=== PATIENT | male | born 1995 | race Caucasian/White ===

== ENCOUNTER 2022-06-25 08:46 | Outpatient (REF) | payer OTHER, SELFPAY ==
[2022-07-01 13:14] LABS: PTT (LAC) Screen 33 sec (<=40)
== END 2022-06-25 08:47 | disposition home or self-care (01) ==
LOC: HO.LAB 08:46
PROVIDERS: PCP Internal Medicine; Visit Provider Physician Assistant
DX: M35.9 Systemic involvement of connective tissue, unspecified (principal)
CPT/HCPCS: 36415; 85597; 85613; 85730

== ENCOUNTER 2023-09-23 10:46 | Outpatient (AMB) | payer OTHER, SELFPAY ==
[2023-09-23 10:50] VITALS: BP 118/70; PULSE 86; O2SAT 96
--- NOTE | 2023-09-23 10:50 | HO.NEPHOV ---
Vital Signs 09/23/23 10:50 Weight 194 lb BP 118/70 Blood Pressure Location Lt brachial Position Sitting Pulse 86 Pulse Source Pulse Oximeter Pulse Oximetry (%) 96 Oxygen Delivery Method Room Air Intake Visit Reasons: HTN-Continuing care from [facility]ANE/ LVM Packing And Final Assembly Supervisor Required: Yes Packing And Final Assembly Supervisor Name: riky [id number] Accompanied by: Mother Allergies No Known Allergies [No Known Allergies*] Allergy (Verified 09/23/23 10:53) HPI Comments Details: 28-year-old man with a history of meningioma status post surgery. He has had hypertension which has been well controlled. He was accompanied by his mother. Packing And Final Assembly Supervisor service was used. [facility] Social History (Updated 09/23/23 @ 10:53 by Brittney Mcnally) Patient Tobacco Use Status: Never used Tobacco Physical Exam Vital Signs: Last Vital Signs Pulse 86 09/23/23 10:50 BP 118/70 09/23/23 10:50 Pulse Ox 96 09/23/23 10:50 Oxygen Delivery Method Room Air 09/23/23 10:50 Const General: comfortable Nutritional Appearance: well nourished Orientation/consciousness: patient oriented x3 HEENT Head: No normal to inspection Mouth: moist mucous membranes Neck Neck: Yes supple and Yes no JVD Resp Auscultation: clear to auscultation bilaterally, no rales and rub present Cardio Jugular venous distension: no JVD Palpation: no palpable S3 and no palpable S4 Heart sounds: no rubs GI Palpation (GI): Soft to palpation and nontender Percussion: No Fluid wave present General: Yes no CVA tenderness Back/Spine/Pelvis Back: no CVA tenderness Skin General skin exam: no rashes or lesions noted Neuro General: patient oriented x3 Extrem General: Yes no pedal edema and No clubbing Results Reviewed Nephrology Results: Hgb 15.8 g/dL (14.0-18.0) 04/04/18 WBC 8.1 X10*3/uL (4.8-10.8) 04/04/18 Plt Count 184 X10*3/uL (160-400) 04/04/18 Sodium 139 MMOL/L (135-145) 04/04/18 Potassium 4.3 MMOL/L (3.3-5.1) 04/04/18 Chloride 105 MMOL/L (96-108) 10/29/18 BUN 16 MG/DL (9-16) 04/04/18 Creatinine 0.97 MG/DL (0.5-1.4) 04/04/18 Calcium 10.2 MG/DL (8.4-10.2) 04/04/18 Assessment & Plan Assessment & Plan (1) HTN (hypertension): Code(s): I10 - Essential (primary) hypertension Category: Medical Plan Middle-aged man well-controlled hypertension. Encouraged him to stay on low-sodium diet Continue with current dose of lisinopril. He will benefit from weight loss. We will continue to monitor renal panel along with urine protein creatinine ratio. All his questions were answered. No changes were made to the medications today. Orders: Orders Creatinine Urine Today I10 - Essential (primary) hypertension, N05.9 - Unspecified nephritic syndrome with unspecified morphologic changes UA and rflx microscopic Today I10 - Essential (primary) hypertension Basic Metabolic Panel Today I10 - Essential (primary) hypertension Total Protein Urine Random Today I10 - Essential (primary) hypertension
== END 2023-09-23 11:06 | disposition home or self-care (01) ==
PROVIDERS: PCP Internal Medicine; Visit Provider Internal Medicine Hypertension Specialist
DX: I10 Essential (primary) hypertension (principal)
CPT/HCPCS: 99214

== ENCOUNTER → 2023-09-23 10:46 | Outpatient (BNVA) | payer OTHER, SELFPAY | PROVIDERS: PCP Internal Medicine; Visit Provider Internal Medicine Hypertension Specialist | DX: I10 Essential (primary) hypertension (principal) | CPT/HCPCS: 99212 ==

== ENCOUNTER 2023-09-30 06:39 | Outpatient (REF) | payer OTHER, SELFPAY ==
[2023-09-30 08:43] LABS: Anion Gap 10 (12-20); Blood Urea Nitrogen 14 mg/dL (9-16); Calcium 9.9 mg/dL (8.4-10.2); Carbon Dioxide 28 mmol/L (22-29); Chloride 109 mmol/L (96-108); Estimated Glomerular Filt Rate > 60; Glucose Random 98 mg/dL (60-115); Sodium 143 mmol/L (135-145)
[2023-09-30 08:56] LABS: Appearance Urine Clear; Color Urine Yellow; Glucose Urine UA Negative (Negative); Leukocyte Esterase Urine Negative (Negative); Nitrite Urine Negative (Negative); PH 5.5 (5.0-9.0); Urine Blood Negative (Negative); Urine Ketones Negative (Negative); Urine Protein Negative (Neg-Trace)
[2023-09-30 09:28] LABS: Creatinine Urine 183.67 mg/dL; Total Protein Urine Random 14 mg/dL (<12)
== END 2023-09-30 06:40 | disposition home or self-care (01) ==
LOC: HO.LAB 06:39
PROVIDERS: PCP Internal Medicine; Visit Provider Internal Medicine Hypertension Specialist
DX: N05.9 Unspecified nephritic syndrome with unspecified morphologic changes (principal); I10 Essential (primary) hypertension
CPT/HCPCS: 36415; 80048; 81003; 82570; 84156

== ENCOUNTER 2023-11-16 11:04 | Emergency (ER) | payer OTHER, SELFPAY ==
--- NOTE | ~2023-11-16 | MR_ITS ---
EXAMINATION: MR BRAIN WITHOUT AND WITH CONTRAST MR ORBITS WITHOUT AND WITH CONTRAST CLINICAL INFORMATION: Left eye apraxia. Double vision. Blurry vision. COMPARISON: MR brain 04/01/2015. TECHNIQUE: Multiplanar MR imaging of the brain and orbits was performed without and with contrast. A total of 9 mL Gadavist was utilized for this examination. 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 There has been decompression of the right orbital apex. Postcontrast images however demonstrate tramtrack enhancement along both optic nerves at the orbital apices best visualized on axial image 9 of 18 series 13 consistent with residual meningioma. There is also persistent dural based thickening and enhancement along the anterior skull base within the olfactory grooves and the left lateral aspect the neville buck best visualized on coronal image 16 of 24 series 15. There is symmetric T2 signal hyperintensity visualized within both optic nerves most likely representing a manifestation of optic atrophy. There is a small nodular dural based component adjoining the supraclinoid segment of left internal carotid artery best visualized on axial image 10 of 18 series 13. No substantial intracranial mass effect. No midline shift or hydrocephalus. There is no acute territorial infarct. No pathological magnetic susceptibility artifact. There is loss of the normal vascular flow void within the superior sagittal sinus best visualized on axial image 17 of 24 series 12. 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 There has been decompression of the right orbital apex. 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 Residual tumor is also visualized along the anterior skull base within the olfactory grooves and the left lateral aspect of the neville buck. There is a small nodular dural based component involving the dorsum sella adjoins the supraclinoid segment of the left internal carotid artery. 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
--- NOTE | 2023-11-16 11:40 | ED_ITS ---
HPI - General Adult General Chief complaint: Eye Problems Stated complaint: swollen eye Time Seen by Provider: 11/16/23 13:58 Source: patient Mode of arrival: ambulatory Limitations: language barrier (Macedonian speaking only, plate conditioner used) History of Present Illness ED Provider: Dr. 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 Patient states that 1 week prior he was on vacation and swimming in pools and on the beach. He states that he began to develop blurred vision and double vision. The patient did see his integration software engineer at [facility] on Wednesday11/12/2023 and was diagnosed with dryness of both eyes. I did talk to the ophthalmology resident, Dr. Jude Haque and he was able to review the ophthalmology note by Dr. Dean Durant from 11/12/2023. From the note, the patient was noted to have light sensitivity, the left eye was red and injected and both eyes were dry bilaterally. Patient had some ptosis of his left eye with difficulty with abduction of his extraocular muscles which was felt to be chronic. The patient states that over the last 4 days his double vision has gotten worse, he now is unable to open his left eye. He also states his blurred vision is worse. The patient's saw his primary care doctor today and his doctor was concerned about recurrence of his meningioma therefore he was sent to the emergency department for evaluation. The patient denies headache, nausea, vomiting, fever, chills, numbness or weakness. Related Data Home Medications ?Medication ?Instructions ?Recorded ?Confirmed aluminum-mag hydroxide-simethicone ml PO 09/23/23 200 mg-200 mg-20 mg/5 mL oral susp (Rocío-Lanta) cholecalciferol (vitamin D3) 50 50 mcg PO DAILY 09/23/23 mcg (2,000 unit) tablet (Vitamin D3) cyanocobalamin (vitamin B-12) 500 500 mcg PO DAILY 09/23/23 mcg tablet famotidine 20 mg tablet 20 mg PO BID 09/23/23 fenofibrate 54 mg tablet 54 mg PO DAILY 09/23/23 hydroxyzine HCl 10 mg tablet 10 mg PO BID 09/23/23 lisinopril 5 mg tablet 5 mg PO DAILY 09/23/23 pantoprazole 40 mg tablet,delayed 40 mg PO DAILY 09/23/23 release simvastatin 80 mg tablet 80 mg PO DAILY 09/23/23 Allergies Allergy/AdvReac Type Severity Reaction Status Date / Time No Known Allergies Allergy Verified 11/16/23 11:42 [No Known Allergies*] [facility] Social History Social History (Updated 09/23/23 @ 10:53 by VALERIA Mota) Patient Tobacco Use Status: Never used Tobacco Advance Directives: No Advance Directives Information Provided: Yes Do you have a plan to hurt others: No Plan Physical Exam ED Vital Signs: Vital Signs - 24 hr 11/16/23 11:41 11/16/23 15:58 11/16/23 18:53 Temperature 97.5 F Pulse Rate 76 72 82 Respiratory Rate 16 16 14 Blood Pressure 130/67 143/83 H 140/87 H Pulse Oximetry 99 98 97 Oxygen Delivery Method Room Air Room Air Room Air BMI result Body Mass Index 32.3 Vital signs were normal Exam: General: Awake, alert in no distress Head: Normocephalic, atraumatic, patient has right sided scalp scar is consistent with his neurosurgical intervention for his meningioma in 2019 Eye exam: Patient's pupils were equal, round and reactive to light. Extraocular movement revealed that the left eye lags behind the right eye with left lateral movement however the patient does not see double, his extraocular movements are otherwise normal. Sclera and conjunctiva appear to be normal. The patient is able to tightly close his right eyelid and left eyelid but is not open his left upper or lower eyelids-she states this is new Neuro: Awake, alert, oriented, normal speech, moves all extremities symmetrically Psych: Pleasant, cooperative Course Course Course Narrative: This is a Rapid Medical Examination (RME) performed by Kyle Burr PA-C in triage. Full HPI, ROS, assessment and treatment plan per primary provider in the Main ED. 28-year-old Macedonian-speaking male here for eval of left eye closed shut x3 days. Admits this began as mild blurred vision to the left eye. He has been evaluated by an eye doctor in [place] who did not no concern for any pathologic process and advised him to use artificial tears for dry eye. Seen by his PCP today who advised he come to the ED to rule out neurologic defect. Well- appearing on exam. Right eye closed shut however and you will to lift the upper eyelid. EOMs intact without entrapment however there is pain to left eye with leftward movement. no facial droop. 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 Patient was on vacation and was swimming in pools and in the ocean. When he came back from vacation he had blurred vision, double vision. He was seen by his integration software engineer on 11/12/2023 who diagnosed him with injected/red left eye with dryness of his eyes and he was given drops. Patient's double vision, blurred vision and inability to open his left eye is gotten worse over the last 4 days. He also complained of dizziness but had no other symptoms. Vital signs were normal. Patient's left eye lags behind the right eye with left lateral vision but he does not have double vision. Patient was able to close both eyes tightly but has not only able to open his left upper lower lids which she states is new. Differential diagnosis: ?Includes but is not limited to optic nerve damage secondary to tumor (meningioma), muscle weakness, with swelling, infectious process, inflammatory process, cranial nerve palsy Following evaluation was ordered: MRI of the brain with and without contrast, MRI of the orbits with and without contrast, CBC, CMP, magnesium, PT/INR, lipase, CRP, ESR Course: 19:38 My interpretation patient's laboratory evaluation is as follows: WBC was normal 7100 with normal differential, H&H. PT/INR normal. Glucose elevated 130. ESR and CRP were normal. The patient did obtain his MRI and I did tell him that this is a nonemergent MRI and it could take up to 1-2 days for the radiologist to read this study. Patient was advised to follow-up with his PCP in 1-2 days to review of the MRI results to determine if there is recurrence of the meningioma. I did tell the patient that he should make a follow-up appointment with his integration software engineer at [facility] to be re-evaluated with 1 week since he now increased ptosis of the left eye compared to his baseline. Admission/Observation Consideration of admission/observation: Escalation of care including admission/observation considered Consult Healthcare Provider Management of the patient was discussed with: Web Services Developer ( Dr. Aristides Donahue at [facility] who was covering for the patient's integration software engineer) Lab Data MDM Lab Attestation statement: I reviewed the patient's lab results. 11/16/23 12:08 11/16/23 12:08 Labs: Lab Results 11/16/23 Range/Units 12:08 WBC 7.1 (4.8-10.8) X10*3/uL RBC 5.58 (4.60-5.80) X10*6/uL Hgb 16.8 (14.0-18.0) g/dl Hct 48.5 (42.0-52.0) % MCV 86.9 (80.0-98.0) fL MCH 30.1 (27.0-33.0) pg MCHC 34.6 (31.0-36.0) g/dl RDW 12.8 (11.0-16.0) % Plt Count 199 (160-400) X10*3/uL MPV 10.6 (9.4-12.4) fL Immature Gran % (Auto) 1.6 H (0.0-0.4) % Neut % (Auto) 62.1 (45-73) % Lymph % (Auto) 27.8 (20-40) % [place] % (Auto) 6.2 (2-11) % Eos % (Auto) 0.9 (0-4) % Baso % (Auto) 1.4 (0-2) % Lymph # (Auto) 2.0 (1.2-4.9) X10*3/uL [place] # (Auto) 0.4 (0.1-1.2) X10*3/uL Eos # (Auto) 0.1 (0.0-0.4) X10*3/uL Baso # (Auto) 0.1 (0.0-0.2) X10*3/uL Abs Immat Gran (auto) 0.11 H (0.00-0.03) X10*3/uL Absolute Neuts (auto) 4.4 (2.0-8.3) x10*3/uL Absolute Nucleated RBC 0.000 (0.0-0.012) X10*3/uL Nucleated RBC % (auto) 0.0 (0.0-0.2) /100WBC ESR 1 (0-15) MM/HR PT 11.3 (11.1-13.3) SEC INR 0.9 (0.9-1.1) Sodium 142 (135-145) mmol/L Potassium 4.2 (3.3-5.1) mmol/L Chloride 106 (96-108) mmol/L Carbon Dioxide 28 (22-29) mmol/L Anion Gap 12 (12-20) BUN 13 (9-16) mg/dL Creatinine 1.01 (0.5-1.4) mg/dL Estim Creat Clear Calc 111.1 Estimated GFR > 60 Random Glucose 130 H (60-115) mg/dL Calcium 10.2 (8.4-10.2) mg/dL Magnesium 2.1 (1.6-2.6) mg/dL Total Bilirubin 0.5 (0.0-1.0) mg/dL AST 25 (5-37) U/L ALT 50 H (0-40) U/L Alkaline Phosphatase 69 (39-117) U/L C-Reactive Protein < 0.10 (< or = 0.50) mg/dL Total Protein 7.6 (6.5-8.0) g/dL Albumin 4.7 (3.5-5.0) g/dL Lipase 34 (8-78) U/L Independent Historian Clinical information obtained from an independent historian. History obtained from or confirmed by: Spouse Chronic Conditions Patient?s care impacted by: Hypertension Discharge Plan Discharge Clinical Impression: Ptosis of eyelid, left, Diplopia Patient Disposition: Home, Self-Care Instructions: Diplopia (ED), Ptosis (ED) Additional Instructions: Your laboratory evaluation today included a CBC, CMP, magnesium, lipase, CRP and ESR. All of these tests were normal. We do not have the ability to obtain an emergency MRI in our department. You had a nonemergent MRI which was done here in the emergency department because there was an open spot available in our outpatient MRI facility. This MRI results could take up to 1-2 days to be interpreted by the radiologist. I want you to follow-up with your primary care doctor in 1-2 days to check this outpatient MRI result to determine if there is recurrence of your meningeal tumor causing your symptoms. You can also check the patient portal determine when the MRI result is available and this can help your doctor as well. After you see your primary care doctor, your doctor can decide what treatment you need but I recommend that you follow-up with your integration software engineer at [facility] in [place] within 1 week to be re-evaluated for your inability to open your eye. Follow-up with your doctor in 2 days. Please return to the emergency department if your symptoms get worse or if you develop any symptoms that are concerning to you. Prescriptions: No Action fenofibrate 54 mg tablet 54 mg PO DAILY simvastatin 80 mg tablet 80 mg PO DAILY pantoprazole 40 mg tablet,delayed release (DR/EC) 40 mg PO DAILY cyanocobalamin (vitamin B-12) 500 mcg tablet 500 mcg PO DAILY cholecalciferol (vitamin D3) [Vitamin D3] 50 mcg (2,000 unit) tablet 50 mcg PO DAILY hydroxyzine HCl 10 mg tablet 10 mg PO BID lisinopril 5 mg tablet 5 mg PO DAILY alum-mag hydroxide-simeth [Rocío-Lanta] 200-200-20 mg/5 mL suspension PO famotidine 20 mg tablet 20 mg PO BID Print Language: Macedonian
[2023-11-16 11:41] VITALS: BP 130/67; PULSE 76; RESP 16; TEMP 36.4; O2SAT 99; BMI 32.3
[2023-11-16 12:14] LABS: MANUAL DIFF FLAG NO
[2023-11-16 12:16] LABS: Basophils Absolute Auto 0.1 X10*3/uL (0.0-0.2); Basophils Percent Auto 1.4 % (0-2); Eosinophils Absolute Auto 0.1 X10*3/uL (0.0-0.4); Eosinophils Percent Auto 0.9 % (0-4); Hematocrit 48.5 % (42.0-52.0); Hemoglobin 16.8 g/dl (14.0-18.0); Imm Gran Abs Auto 0.11 X10*3/uL (0.00-0.03); Imm Gran Pct Auto 1.6 % (0.0-0.4); Lymphocytes Percent Auto 27.8 % (20-40); Mean Corpuscular HGB Conc 34.6 g/dl (31.0-36.0); Mean Corpuscular Hemoglobin 30.1 pg (27.0-33.0); Mean Corpuscular Volume 86.9 fL (80.0-98.0); Mean Platelet Volume 10.6 fL (9.4-12.4); Monocytes Absolute Auto 0.4 X10*3/uL (0.1-1.2); Monocytes Percent Auto 6.2 % (2-11); Neutrophils Absolute Auto 4.4 x10*3/uL (2.0-8.3); Neutrophils Percent Auto 62.1 % (45-73); Platelet Count 199 X10*3/uL (160-400); Red Blood Count 5.58 X10*6/uL (4.60-5.80); Red Cell Distribution Width 12.8 % (11.0-16.0); White Blood Count 7.1 X10*3/uL (4.8-10.8)
[2023-11-16 12:21] LABS: INTERNATIONAL NORM RATIO 0.9 (0.9-1.1); Prothrombin Time 11.3 SEC (11.1-13.3)
[2023-11-16 12:28] LABS: Lipase 34 U/L (8-78)
[2023-11-16 12:32] LABS: Alanine Aminotransferase 50 U/L (0-40); Albumin Level 4.7 g/dL (3.5-5.0); Alkaline Phosphatase 69 U/L (39-117); Anion Gap 12 (12-20); Aspartate Amino Transferase 25 U/L (5-37); Bilirubin Total 0.5 mg/dL (0.0-1.0); Blood Urea Nitrogen 13 mg/dL (9-16); Calcium 10.2 mg/dL (8.4-10.2); Carbon Dioxide 28 mmol/L (22-29); Chloride 106 mmol/L (96-108); Creatinine Clr Calc Pharmacy 111.1; Estimated Glomerular Filt Rate > 60; Glucose Random 130 mg/dL (60-115); Magnesium 2.1 mg/dL (1.6-2.6); Potassium 4.2 mmol/L (3.3-5.1); Sodium 142 mmol/L (135-145); Total Protein 7.6 g/dL (6.5-8.0)
--- OUTSIDE RECORDS SUMMARY | 2023-11-16 13:19 | XMS_ITS | Continuity of Care Document ---
Author Organization [facility] ter Address [address] [place] [id number]- Care Team Providers Care Door And Arrival Attendant Name Role Phone Zay TSANG, Rebecca Torres Primary Care Physician Encounter [facility] Date(s): 12/30/22 - 12/30/[address] [address]- Encounter Diagnosis Left-sided chest wall pain(Final) - 12/30/22 Palpitations(Final) - 12/30/22 Discharge Disposition: A-D/C Home Attending Physician: Xochitl Gary MD Admitting Physician: Xochitl Gary MD Referring Physician: Not on Staff, Referring MD Allergies, Adverse Reactions, Alerts No Known Allergies Medications amLODIPine 2.5 mg oral tablet 2.5 mg, 1, tablet, By Mouth, Daily, # 30 tablet, Refills 0, Maintenance, 04/27/18 14:29:21 EST Start Date: 04/27/18 Status: Ordered finasteride 5 mg oral tablet 1 tablet = 5 mg, By Mouth, Daily, # 30 tablet, 0 Refills, Maintenance, 04/27/18 14:29:28 EST, Tablet Start Date: 04/27/18 Status: Ordered lisinopril 5 mg oral tablet 5 mg, 1, tablet, By Mouth, Daily, # 30 tablet, Refills 0, Maintenance, 04/27/18 14:29:14 EST Start Date: 04/27/18 Status: Ordered simvastatin 80 mg oral tablet 1 tablet = 80 mg, By Mouth, Daily at bedtime, 0 Refills, Maintenance, 10/20/17 10:11:58 EDT Start Date: 10/20/17 Status: Ordered Problem List Condition Confirmation Course Effective Dates Status H ealth Status Informant Brachydactyly Confirmed Active Hypertension Confirmed Active 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 FINDINGS: LINES AND TUBES: None. LUNGS AND PLEURA: Clear lungs. Normal pulmonary vascularity. No pleural effusion. No pneumothorax. HEART, MEDIASTINUM AND NOHEMI: Heart is normal in size. Normal mediastinal and hilar contour. BONES AND SOFT TISSUES: No acute abnormality. IMPRESSION: No evidence of acute abnormality. WSN: [id number] Ordering Physician: Xochitl Gary Dictated By: Vahe Quinteros MD Dictated Date/Time: 12/30/22 11:58 a Reviewed By: Vahe Quinteros MD Signed By: Vahe Quinteros MD Signed Date/Time: 12/30/22 11:58 am Transcribed By: MARCOS Transcribed Date/Time: 12/30/22 11:58 am Vital Signs Most recent to oldest [Reference Range]: 1 2 3 Height 165 cm (12/30/22 3:25 PM) 165 cm (12/30/22 12:20 PM) 165 cm (12/30/22 11:05 AM) Oxygen Saturation [94-100 %] 100 % (12/30/22 3:25 PM) 97 % (12/30/22 11:05 AM) Pulse Rate [55-90 bpm] 58 bpm (12/30/22 3:25 PM) 80 bpm (12/30/22 11:05 AM) Blood Pressure [90-138/55-84 mm Hg] 119/76mm Hg (12/30/22 3:25 PM) 130/78mm Hg (12/30/22 11:05 AM) Respiratory Rate [16-30 br/min] 16 br/min (12/30/22 3:25 PM) 16 br/min (12/30/22 11:05 AM) Temperature [96.8-100.4 DegF] 98.5 DegF (12/30/22 11:05 AM) Mode of Delivery (Oxygen) Room air (12/30/22 3:25 PM) Room air (12/30/22 11:05 AM) Blood pressure sites Arm, left (12/30/22 3:25 PM) Arm, left (12/30/22 11:05 AM) Temperature Route Oral (12/30/22 11:05 AM) Dry Weight 86.5 kg (12/30/22 3:25 PM) 86.5 kg (12/30/22 12:20 PM) 86.5 kg (12/30/22 11:05 AM) Dry Weight Obtained Via Patient/family s tated (12/30/22 11:05 AM) Social History Social History Type Response Smoking Status Never smoker; Tobacc o user in household: No entered on: 10/24/15 Sex EKG study * Event Display: ECG 12-Lead Authored Date: Please click on pdf link to open report * Event Display: ECG 12-Lead Authored Date: Ventricular Rate: 74 BPM Atrial Rate: 74 BPM P-R Interval: 136 ms QRS Duration: 116 ms Q-T Interval: 380 ms QTC Calculation(Bazett): 421 ms P Berry: 48 degrees R Berry: -30 degrees T Berry: 18 degrees Normal sinus rhythm Left axis deviation Cannot rule out Anterior infarct , age undetermined Abnormal ECG No previous ECGs available Confirmed by SAMANTHA ALMEIDA MD ([id number]) on 12/30/2022 11:33:22 AM [place]: SAMANTHA ALMEIDA MD Note * Saranya Kilgore: PERFORM, SIGN, VERIFY Event Display: Patient Education Handout Authored Date: [id number] Patient Care team information Care Team Personnel Name: Gianna Simpson MD Position: [facility] Physician - Pediatrics Member Role: Lifetime Consulting Physician Address: Address: [address] [place] [address]- Name: Rosemarie Lucas Position: [facility] Onco RN Member Role: Primary Care Nurse Name: Hernan Lee MD Position: [facility] Physician -Physician Practices Member Role: Lifetime Consulting Physician Name: Zay TSANG, Rebecca Torres Position: [facility] Physician - Primary Care Member Role: PCP Address: Address: [address] [place] [address]- Name: Xochitl Gary MD Position: [facility] ED Medicine MD Member Role: Admitting Physician Address: Address: [address] [place] [address] Name: Genia Bennett Position: [facility] ED TA [facility] Name: Manjit Boone Position: [facility] ED TA [facility] Name: Tiffany Agudelo RN Position: [facility] ED RN W/OE and Tasks Member Role: Patient Care Provider Name: Saranya Kilgore Position: [facility] Associate Professional Member Role: ED Physician Insurance And Financial Services Agent Address: Address: [address] [place] [address] Care Team Related Persons Name: NADEEM JACKSON Address: home [address] [place] [address] Name: PETER JACKSON Address: home [address] [place] [address] Name: ANTWON SMITH Address: home [address] [place] [address]
--- OUTSIDE RECORDS SUMMARY | 2023-11-16 13:19 | XMS_ITS | Continuity of Care Document ---
Author Organization [facility] ter Address [address] [place] [id number]- Care Team Providers Care Block Breaker Name Role Phone Zay TSANG, Rebecca D Primary Care Physician Encounter [facility] Date(s): 07/25/21 - 07/25/[address] [address]- Discharge Disposition: A-D/C Home Attending Physician: Contreras Lacey MD Admitting Physician: Contreras Lacey MD Referring Physician: Not on Staff, Referring [...] 14:29:14 EST Start Date: 04/27/18 Status: Ordered predniSONE 20 mg oral tablet 3 tablet = 60 mg, By Mouth, Daily, for 7 days, # 21 tablet, 0 Refills, Acute 08/01/21 22:33:00 EST,07/25/21 22:33:00 EST, Tablet, Partial fill upon patient request if the prescription is for a schedule II opioid drug. Start Date: 07/25/21 Stop Date: 08/01/21 Status: Ordered simvastatin 80 mg oral tablet 1 tablet = 80 mg, By Mouth, Daily at bedtime, 0 Refills, Maintenance, 10/20/17 10:11:58 EDT Start Date: 10/20/17 Status: Ordered Problem List Condition Effective Dates Status Health Status Inform ant Brachydactyly(Confirmed) Active Hypertension(Confirmed) Active Polyarticular juvenile idiop athic arthritis(Confirmed) Active Mild intellectual disability(Confirmed) Active Vital Signs Most recent to oldest [Reference Range]: 1 2 3 Oxygen Saturation [94-100 %] 98 % (07/25/21 11:07 PM) 97 % (07/25/21 9:46 PM) 97 % (07/25/21 9:41 PM) Pulse Rate [55-90 bpm] 71 bpm (07/25/21 11:07 PM) 72 bpm (07/25/21 9:46 PM) 73 bpm (07/25/21 9:41 PM) Blood Pressure [90-138/55-84 mm Hg] 136/87mm Hg (07/25/21 11:07 PM) 132/74mm Hg (07/25/21 9:46 PM) 132/74mm Hg (07/25/21 9:41 PM) Respiratory Rate [16-30 br/min] 16 br/min (07/25/21 11:07 PM) 24 br/min (07/25/21 9:46 PM) 20 br/min (07/25/21 9:41 PM) Temperature [96.8-100.4 DegF] 98.0 DegF (07/25/21 9:46 PM) 98.1 DegF (07/25/21 9:41 PM) 98.3 DegF (07/25/21 6:05 PM) Mode of Delivery (Oxygen) Room air (07/25/21 11:07 PM) Room air (07/25/21 9:46 PM) Room air (07/25/21 9:41 PM) Blood pressure sites Arm, left (07/25/21 11:07 PM) Arm, left (07/25/21 9:46 PM) Arm, left (07/25/21 9:41 PM) Temperature Route Oral (07/25/21 9:46 PM) Oral (07/25/21 9:41 PM) Oral (2/18/22 6:05 PM) Social History Social History Type Response Smoking Status Never smoker; Tobacc o user in household: No entered on: 10/24/15 Sex
--- OUTSIDE RECORDS SUMMARY | 2023-11-16 13:19 | XMS_ITS | Continuity of Care Document ---
Author Organization [facility] ter Address [address] [place] [id number]- Care Team Providers Care Top Lift Cutter Name Role Phone Zay TSANG, Rebecca D Primary Care Physician [phone] [id number] Date(s): 07/14/19 - 07/15/[address] [address]- [facility] Discharge Disposition: A-D/C Home Attending Physician: Contreras Lacey MD Admitting Physician: Contreras Lacey MD Referring Physician: Not on Staff, Referring MD Allergies, Adverse Reactions, Alerts Substance Reaction Severity Status NKA Active Medications amLODIPine 2.5 mg oral tablet 2.5 [...] athic arthritis(Confirmed) Active Mild intellectual disability(Confirmed) Active Results Radiology Reports * Exam Date Time Procedure Performing Provider Status 07/15/19 12:47 AM Chest 2 Views Frontal and Lat Halina shanique LillianAlessandra Boss (Verified) Notes: (Chest 2 Views Frontal and Lat) Reason For Exam: Chest Pain;Other: RESULT: Chest 2 Views Frontal and Lat Chest 2 Views Frontal and Lat Reason: Other:; Chest Pain; Clinical Question(s): CHF; Hx of Present Illness: pt complains of sob and chest pain for 30 min ago; Other Objective Findings: alert, color good, midsternal chest pain radto left side, increases with inspiraton , no cough, no n v d, no cough COMPARISON: 01/13/2019 FINDINGS: LINES AND TUBES: None. LUNGS AND PLEURA: Clear lungs. Normal pulmonary vascularity. Stable bilateral smooth pleural thickening. No pleural effusion. No pneumothorax. HEART, MEDIASTINUM AND NOHEMI: Heart is normal in size. Normal mediastinal and hilar contour. BONES AND SOFT TISSUES: No acute abnormality. IMPRESSION: No acute abnormality. WSN: [id number] Dictated By: Hiral James MD Dictated Date/Time: 07/15/19 7:22 am Reviewed By: Hiral James MD Signed By: Hiral James MD Signed Date/Time: 07/15/19 7:22 am Transcribed By: MARCOS Transcribed Date/Time: 07/15/19 7:21 am Vital Signs Most recent to oldest [Reference Range]: 1 2 3 Weight 89.6 kg (07/15/19 3:38 AM) 89.6 kg (07/14/19 8:45 PM) Oxygen Saturation [94-100 %] 100 % (07/15/19 3:38 AM) 100 % (07/14/19 10:21 PM) 100 % (07/14/19 8:45 PM) Pulse Rate [55-90 bpm] 72 bpm (07/15/19 3:38 AM) 75 bpm (07/14/19 10:21 PM) 84 bpm (07/14/19 8:45 PM) Blood Pressure [90-138/55-84 mm Hg] 158/80mm Hg *H* (07/15/19 3:38 AM) 163/94mm Hg *H* (07/14/19 10:21 PM) 168/98mm Hg *H* (07/14/19 8:45 PM) Respiratory Rate [16-30 br/min] 18 br/min (07/15/19 3:38 AM) 20 br/min (07/14/19 10:21 PM) 18 br/min (07/14/19 8:45 PM) Temperature [96.8-100.4 DegF] 98.8 DegF (07/14/19 10:21 PM) 98.4 DegF (07/14/19 8:45 PM) Mode of Delivery (Oxygen) Room air (07/15/19 3:38 AM) Room air (07/14/19 10:21 PM) Room air (07/14/19 8:45 PM) Blood pressure sites Arm, right (07/14/19 10:21 PM) Arm, right (07/14/19 8:45 PM) Temperature Route Oral (07/14/19 10:21 PM) Oral (07/14/19 8:45 PM) Dry Weight 89.6 kg (07/15/19 3:38 AM) 89.6 kg (07/14/19 8:45 PM) Weight Obtained Via Standing scale (07/14/19 8:45 PM) Dry Weight Obtained Via Standing scale (07/14/19 8:45 PM) Social History Social History Type Response Smoking Status Never smoker; Tobacc o user in household: No entered on: 10/24/15 Sex
[2023-11-16 15:58] VITALS: BP 143/83; PULSE 72; RESP 16; O2SAT 98
[2023-11-16 16:02] LABS: C Reactive Protein < 0.10 mg/dL (< or = 0.50)
[2023-11-16 16:36] LABS: Erythrocyte Sedimentation Rate 1 MM/HR (0-15)
[2023-11-16] MEDS: gadobutroL 10 ML VIAL IVPUSH (18:02)
[2023-11-16 18:53] VITALS: BP 140/87; PULSE 82; RESP 14; O2SAT 97
--- NOTE | 2023-11-16 19:33 | PC.NURSE ---
Assumed care of pt. With data modeling specialist, pt aware of plan for discharge, MD at bedside confirming plan with pt. No acute distress noted at this time.
[2023-11-16 20:18] VITALS: BP 136/86; PULSE 78; RESP 16; TEMP 36.8; O2SAT 98
== END 2023-11-16 20:19 | disposition home or self-care (01) ==
PROVIDERS: Physician Assistant Medical; Emergency Provider Emergency Medicine Emergency Medical Services; PCP Internal Medicine
DX: H02.402 Unspecified ptosis of left eyelid (principal); H01.8 Other specified inflammations of eyelid; H53.2 Diplopia; R51.9 Headache, unspecified; R06.02 Shortness of breath; Z79.899 Other long term (current) drug therapy
CPT/HCPCS: 36415; 70543; 70553; 80053; 83690; 83735; 85025; 85610; 85652; 86140; 96374; 99284; 99285; A9585

== ENCOUNTER 2024-11-02 16:02 | Outpatient (AMB) | payer OTHER, SELFPAY ==
--- OUTSIDE RECORDS SUMMARY | 2024-11-02 16:04 | XMS_ITS | Clinical Summary ---
Author Organization [facility] Address [address] [facility] [address] [place] [address] Phone Care Team Providers Care Aerospace Engineer Name Role Phone Rebecca Collazo MD Primary Care Provider [phone] Allergies Active Allergy Reactions Criticality Noted Date Comments Pollen Extract 01/19/2022 Medications simvastatin (ZOCOR) 80 MG tablet Take 1 tablet by mouth 1 (one) time each day Active cyanocobalamin (VITAMIN B-12) 1000 MCG tablet Take 1,000 mcg by mouth 1 (one) time each day 11/18/2020 Active pantoprazole (PROTONIX) 40 MG EC tablet Take 40 mg by mouth 1 (one) time each day 12/07/2020 Active fenofibrate (TRICOR) 54 MG tablet Take 54 mg by mouth 1 (one) time each day Active lisinopril 5 MG tablet TAKE 1 TABLET BY MOUTH EVERY EVENING 90 tablet 5 04/20/2021 Active hydrOXYzine (ATARAX) 10 MG tablet Take 10 mg by mouth 1 (one) time each day 05/05/2021 Active diclofenac (VOLTAREN) 75 MG EC tablet Take 1 mg by mouth 1 (one) time each day 02/04/2022 Active Active Problems Problem Noted Date Diagnosed Date Hypertensive disorder 12/12/2020 Resolved Problems Problem Noted Date Diagnosed Date Resolved Date Visual disturbance 06/16/2021 2 Chronic low back pain 10/08/20202021 Mass of scalp 04/16/2020 06/16/2021 Cough 07/20/2019 06/16/2021 Meningioma 03/07/2019 06/16/2021 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 He is currently on simvastatin 80 mg orally daily. He denies any myalgias. Last lipid panel done in April 2020 showed an LDL of 68. This time, would recommend to continue his current statin therapy. 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 Previously elevated LFT's. 04/25- no clear synovitis, monitoring. 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 06/16/2021 Gastroesophageal reflux disease 02/07/2016 06/16/2021 Immunizations Immunization Administration Dates Next Due Influenza, MDCK, PF, Quadrivalent 03/08/2020,10/2018 Moderna SARS-COV-2 10/30/2020,09/28/2020 Family History Relation Status Comments Father Unknown Mother Unknown Social History Tobacco Use Types Packs/Day Years Used Date Smoking Tobacco: Never Smokeless Tobacco: Never Tobacco Cessation:Counseling Given: Not Answered Alcohol Use Standard Drinks/Week Comments No 0 (1 standard drink = 0.6 oz pur e alcohol) Sex and Gender Information Value Date Recorded Sex Assigned at Not on file Legal Sex Male 4:50 PM EST Gender Identity Not on file Sexual Orientation Not on file Last Filed Vital Signs Vital Sign Reading Time Taken Comments Blood Pressure 100/72 02/22/2023 1:06 PM EDT Pulse 85 02/22/2023 1:06 PM EDT Temperature - - Respiratory Rate - - Oxygen Saturation 99% 02/22/2023 1:06 PM EDT Inhaled Oxygen Concentration - - Weight 75.8 kg (167 lb 3.2 oz) 02/22/2023 1:06 P M EDT Height 165.1 cm (5' 5 ) 02/22/2023 1:06 PM EDT Body Mass Index 27.82 02/22/2023 1:06 PM EDT Plan of Treatment Health Maintenance Due Date Last Done Comments Hepatitis B Vaccine (1 of 3 - 19+ 3-dose series) 2014 Pneumococcal Vaccine: Peds ( 0 to 5 Years) and At-Risk Patients (6 to 49 Years) (1 of 2 - PCV) 2014 Influenza Vaccine (Season Ended) 2025 03/08/20, 04/11/2019 Insurance MCR ([id number]) DILMA BOSE [id number] [facility] MCR ([id number]) Care Teams Aerospace Engineer Relationship Specialty Start Date End Date Rebecca Collazo MD [address] [address] PCP - General 06/17/20
--- NOTE | 2024-11-02 16:16 | MHC.PC.OV ---
Vital Signs 11/02/24 16:21 Height 5 ft 5 in Weight 200 lb BMI 33.3 BP 132/86 Blood Pressure Location Lt brachial Position Sitting Intake Visit Reasons: DISPATCHER ELECTRIC POWER/Chronic conditions Import Customs Clearing Agent Required: No Accompanied by: Mother Allergies No Known Allergies [No Known Allergies*] Allergy (Verified 11/02/24 16:38) Medication List - Last Reconciled 11/02/24 by Stefani Pressley MD alum-mag hydroxide-simeth 200-200-20 mg/5 mL ([place]) mL PO cholecalciferol (vitamin D3) (Vitamin D3) 50 mcg PO DAILY cyanocobalamin (vitamin B-12) 500 mcg PO DAILY fenofibrate 54 mg PO DAILY hydroxyzine HCl 10 mg PO BID lisinopril 5 mg PO DAILY meclizine 25 mg PO TID PRN meloxicam 15 mg PO DAILY pantoprazole 40 mg PO DAILY simvastatin 40 mg PO BEDTIME Tobacco use date assessed: 11/02/24 Dental Screening Dental Screen Date: 11/02/24 Did you have a dental visit in the last 12 months?: Yes Did you have a dental problem in the last 6 months where you did not have access to dental care?: No Was dental information given to patient?: Patient has dentist HPI HPI Comments History of Present Illness Details The patient is a 29-year-old male presenting to community health care accompanied by mother and management of multiple chronic conditions. He is managing mixed hyperlipidemia with simvastatin and fenofibrate, and hypertension with lisinopril. He also has hypomelanosis, although specific details are not elaborated. There is a history of meningioma, with treatment involving three removals, but residuals persist, requiring ongoing oncology intervention. Anxiety and mild depression are noted, with no current mental health treatment sought. The patient's family history includes maternal depression and hyperthyroidism and paternal depression and hypercholesterolemia. He has elevated TSH, suggesting hypothyroidism, and experiences occasional fatigue, potentially due to ongoing treatments. He has regular nephrology and gastroenterology follow-ups and is under specialized care for his complex health concerns. [facility] Surgical History History of meningioma History of hernia surgery History of appendectomy Family History Mother Hyperthyroidism Depression Mental health disorder Father Hypercholesterolemia Depression Mental health disorder Social History Housing: House Alcohol intake: never Patient Tobacco Use Status: Never used Tobacco e-Cigarette/Vaping Use: Never Used Second Hand Smoke Exposure: No service: No Current occupational status: disabled Cognitive needs: No Hearing needs: No Vision needs: Yes Questionnaire PHQ-9 Over the last 2 weeks, how often have you been bothered by any of the following problems? 1. Little interest or pleasure in doing things: several days 2. Feeling down, depressed, or hopeless: several days 3. Trouble falling or staying asleep, or sleeping too much: several days 4. Feeling tired or having little energy: several days 5. Poor appetite or overeating: not at all 6. Feeling bad about yourself - or that you are a failure or have let yourself or your family down: not at all 7. Trouble concentrating on things, such as reading the newspaper or watching television: several days 8. Moving or speaking so slowly that other people could have noticed. Or the opposite - being so fidgety or restless that you have been moving around a lot more than usual: several days 9. Thoughts that you would be better off or of hurting yourself in some way: not at all Total score: 6 Depression Screening Interpretation: Positive Depression Screening Follow-up: Existing condition and Follow-up Visit Requested Depression Screening Done: Yes 34161 - PHQ-9 Billing: Yes Source: Developed by Drs. Syd Gutierrez, Hailey Riley, True Morales and colleagues, with an educational keith from [employer]. Thrive Questionnaire Date Thrive assessed: 11/02/24 I am a: Patient What is your living situation today?: I have a steady place to live Within the past 12 months, did the food you bought not last and you didn't have the money to get more?: Never true Within the past 12 months, did you worry whether your food would run out before you got money to buy more?: Sometimes True Do you have trouble paying for medicines?: No Do you have trouble getting transportation to medical appointments?: No Do you have trouble paying your heating and electricity bill?: No Do you have trouble taking care of your child, family member or friend?: I choose not to answer this question Do you have trouble with day-to-day activities such as bathing, preparing meals, shopping, managing finances, etc.?: Yes Are you currently unemployed and looking for a job?: I choose not to answer this question Are you interested in more education?: I choose not to answer this question Please select the resources that you would like help with: None Currently or been in a relationship where the following occur: No concerns reported THRIVE Score: 1 AUDIT C Alcohol Use Questionnaire (AUDIT-C) 1. How often do you have a drink containing alcohol?: Never Total Score: 0 Score Reviewed/Action Taken: No GODFREY-7 AMB Questionnaire GODFREY-7 Date GODFREY - 7 assessed: 11/02/24 Feeling nervous, anxious, or on edge: 1 = Several days Not being able to stop or control worryin = Several days Worrying too much about different things: 1 = Several days Trouble relaxin = Several days Being so restless that it is hard to sit still: 1 = Several days Becoming easily annoyed or irritable: 1 = Several days Feeling afraid as if something awful might happen: 0 = Not at all Total GODFREY-7 score (0-4 normal; 5-9 mild; 10-14 moderate; 15-21 severe): 6 Source: Developed by Drs. Syd Gutierrez, Hailey Riley, True Morales and colleagues, with an educational keith from [employer]. GODFREY-7 Assessment Billing GODFREY-7 Assessment Tool: GODFREY-7 Assessment 34117 Review of Systems Const All systems reviewed & are unremarkable except as noted in HPI and below Card Denies chest pain at rest, Denies chest pain with activity, Denies edema, Denies irregular heart rhythm, Denies claudication, Denies dyspnea, Denies dyspnea on exertion, Denies orthopnea, Denies paroxysmal nocturnal dyspnea and Denies slow heart rate Resp Denies cough, Denies dyspnea and Denies dyspnea on exertion Musc Denies abnormal gait, Denies atrophy, Denies deformity and Denies limited range of motion Skin/Breast Denies bleeding lesions, Denies changing lesions and Denies rash Neuro Denies abnormal gait, Denies behavioral changes and Denies lack of coordination Psych Denies behavioral changes Physical exam (Primary Care) Vital Signs: Last Vital Signs BP 132/86 11/02/24 16:21 BMI result Body Mass Index 33.3 BMI Assessment/Plan discussion: High BMI High, discussed plan: lifestyle, weight reduction, dietary and physical activity Tobacco/Smoking Status: Tobacco use Status Tobacco use date assessed 11/02/24 11/02/24 16:34 Patient Tobacco Use Status Never used Tobacco 11/02/24 16:30 e-Cigarette/Vaping Use Never Used 11/02/24 16:34 PHQ-9: PHQ-9 Score PHQ-9: Total score 6 11/02/24 16:50 Depression Screening Interpretation: Positive Depression Screening Follow-up: Existing condition and Follow-up Visit Requested Thrive Assessment: Date of Thrive Assessment Date Thrive assessed 11/02/24 11/02/24 16:19 Currently or been in a relationship where the following occur: No concerns reported Resp Effort & Inspection: normal respiratory effort Auscultation: clear to auscultation bilaterally Cardio Jugular venous distension: no JVD Rate: regular rate Rhythm: regular rhythm Heart sounds: S1 normal heart sound present and S2 normal heart sound present Extrem General: Yes full ROM Psych Appearance: grossly normal Coding Level of Care Code New Pt Level 4 (68962) Complex EM visit Add On G2211 Diagnoses HTN (hypertension) I10 Mixed hyperlipidemia E78.2 Hypomelanosis L81.5 Vertigo R42 GODFREY (generalized anxiety disorder) F41.1 Rheumatoid arthritis M06.9 Meningioma D32.9 Chronic GERD K21.9 Hypovitaminosis D E55.9 B12 deficiency E53.8 Thyroid disease E07.9 Additional Codes GODFREY-7 Assessment Billing - GODFREY-7 Assessment Tool: GODFREY-7 Assessment 64461 ([id number]) PHQ-9 - 51822 - PHQ-9 Billing: Yes ([id number]) Time Spent (min) 25 Assessment & Plan Assessment & Plan (1) HTN (hypertension): Code(s): I10 - Essential (primary) hypertension Category: Medical (2) Mixed hyperlipidemia: Code(s): E78.2 - Mixed hyperlipidemia Category: Medical (3) Hypomelanosis: Code(s): L81.5 - Leukoderma, not elsewhere classified Category: Medical (4) Vertigo: Code(s): R42 - Dizziness and giddiness Category: Medical (5) GODFREY (generalized anxiety disorder): Code(s): F41.1 - Generalized anxiety disorder Category: Medical (6) Rheumatoid arthritis: Code(s): M06.9 - Rheumatoid arthritis, unspecified Category: Medical (7) Meningioma: Code(s): D32.9 - Benign neoplasm of meninges, unspecified Category: Medical (8) Chronic GERD: Code(s): K21.9 - Gastro-esophageal reflux disease without esophagitis Category: Medical (9) Hypovitaminosis D: Code(s): E55.9 - Vitamin D deficiency, unspecified Category: Medical (10) B12 deficiency: Code(s): E53.8 - Deficiency of other specified B group vitamins Category: Medical (11) Thyroid disease: Code(s): E07.9 - Disorder of thyroid, unspecified Category: Medical Plan The patient will continue with simvastatin and fenofibrate for mixed hyperlipidemia and lisinopril for hypertension, with regular monitoring of lipid levels and blood pressure. Hypomelanosis will be observed for any changes. Ongoing oncology follow-up is necessary for residual meningioma. The patient's mild depression will be monitored, acknowledging his choice to forego current mental health treatment. Further assessment of thyroid function is warranted due to elevated TSH levels, with adjustments as necessary. Regular nephrology and gastroenterology consultations will continue. Vaccination status should be confirmed with the primary care physician. Patient was informed and verbally consented to the use of an ambient scribe for clinic note documentation during this visit. Orders: Orders Vitamin D 25-OH Total 11/02/24 E55.9 - Vitamin D deficiency, unspecified Vitamin B12 and Folate 11/02/24 E53.8 - Deficiency of other specified B group vitamins Lipid Panel 11/02/24 E78.5 - Hyperlipidemia, unspecified Complete Blood Count Auto Diff 11/02/24 D64.9 - Anemia, unspecified Thyroid Stimulating Hormone 11/02/24 E07.9 - Disorder of thyroid, unspecified Thyroglobulin Antibodies 11/02/24 E07.9 - Disorder of thyroid, unspecified IRON PROFILE 11/02/24 D64.9 - Anemia, unspecified Comprehensive [place]. Panel Fast 11/02/24 K21.9 - Gastro-esophageal reflux disease without esophagitis Free T4 (Free Thyroxine) 11/02/24 E07.9 - Disorder of thyroid, unspecified Thyroid Peroxidase Antibodies 11/02/24 E07.9 - Disorder of thyroid, unspecified Intrinsic Factor Antibodies 11/02/24 E53.8 - Deficiency of other specified B group vitamins Parietal Cell Antibody 11/02/24 E53.8 - Deficiency of other specified B group vitamins Patient Instructions: - Continue taking prescribed medications: simvastatin, fenofibrate, and lisinopril. - Follow up with oncology as advised for meningioma treatment. - Monitor blood pressure and lipid levels regularly. - Schedule thyroid function tests to assess elevated TSH levels. - Confirm tetanus vaccination status with your primary care provider. - Maintain regular appointments with digital sales director and diathermy equipment repairer. - Seek medical attention if experiencing new or worsening symptoms.
[2024-11-02 16:21] VITALS: BP 132/86; BMI 33.3
== END 2024-11-02 16:56 | disposition home or self-care (01) ==
PROVIDERS: PCP Internal Medicine; Visit Provider Internal Medicine
DX: I10 Essential (primary) hypertension (principal); M06.9 Rheumatoid arthritis, unspecified; D32.9 Benign neoplasm of meninges, unspecified; E78.2 Mixed hyperlipidemia; L81.5 Leukoderma, not elsewhere classified; R42 Dizziness and giddiness; F41.1 Generalized anxiety disorder; K21.9 Gastro-esophageal reflux disease without esophagitis; E55.9 Vitamin D deficiency, unspecified; E53.8 Deficiency of other specified B group vitamins; E07.9 Disorder of thyroid, unspecified

== ENCOUNTER → 2024-11-02 16:02 | Outpatient (BNVA) | payer OTHER, SELFPAY | PROVIDERS: PCP Internal Medicine; Visit Provider Internal Medicine | DX: I10 Essential (primary) hypertension (principal); E78.2 Mixed hyperlipidemia; L81.5 Leukoderma, not elsewhere classified; R42 Dizziness and giddiness; F41.1 Generalized anxiety disorder; M06.9 Rheumatoid arthritis, unspecified; D32.9 Benign neoplasm of meninges, unspecified; K21.9 Gastro-esophageal reflux disease without esophagitis; E55.9 Vitamin D deficiency, unspecified; E53.8 Deficiency of other specified B group vitamins; E07.9 Disorder of thyroid, unspecified; Z79.899 Other long term (current) drug therapy | CPT/HCPCS: 96127; 99202 ==

== ENCOUNTER 2024-11-06 07:41 | Outpatient (REF) | payer OTHER, SELFPAY ==
--- OUTSIDE RECORDS SUMMARY | 2024-11-06 07:43 | XMS_ITS | Encounter Summary ---
Author Organization [employer] Address [address] [place] [address] Care Team Providers Care Burial Vault Maker Name Role Phone Rebecca Collazo MD Primary Care Provider [phone] Reason for Visit * Reason Onset Date Comments [place]: Medication 10/24/2024 Encounter Details Date Type Department Care Team ([facility] st Contact Info) Description 10/24/2024 Telephone Internal Medicine - [place] 175 [facility] [address] [place] [id number] Rebecca Collazo MD 175 [facility] [address] [place] [address] [place]: Medication Social History Tobacco Use Types Packs/Day Years Used Date Smoking Tobacco: Never Smokeless Tobacco: Never Alcohol Use Standard Drinks/Week Comments No 0 (1 standard drink = 0.6 oz pur e alcohol) Sex and Gender Information Value Date Recorded Sex Assigned at Not on file Legal Sex Male 10:26 AM EST Gender Identity Not on file Sexual Orientation Not on file documented as of this encounter Ordered Prescriptions Prescription Sig Dispense Quantity Refills Last Filled Start Date End Date simvastatin (ZOCOR) 40 mg tablet Take 1 tablet (40 mg total) by mouth at bedtime. 30 each 5 10/24/2024 documented in this encounter Progress Notes * Rebecca Collazo MD - 10/24/2024 3:03 PM EDT Sent 40 mg instead of 80 mg * Cristin Nettles MA - 10/24/2024 1:26 PM EDT Please advise * Tracy Gong - 10/24/2024 10:10 AM EDT Patients mother called and stated that the patient had a infusion yesterday and they did blood workand his enzymes were high and his simvastatin needs to be a lower dose because it is causing his enzymes to be elevated. Please advise Cb# [phone] (prefers cambodian speaking person) documented in this encounter Plan of Treatment Not on file documented as of this encounter Visit Diagnoses Not on filedocumented in this encounter Discontinued Medications Medication Sig Discontinue Reason Start Date End Da te simvastatin (ZOCOR) 80 mg tablet Take 1 Tablet by mouth daily. Dose adjustment 03/13/2024 10/24/2024 documented as of this encounter Care Teams Burial Vault Maker Relationship Specialty Start Date End Date Rebecca Collazo MD [address] [place] [address] [address] [place] [address] PCP - General Internal Medicine 02/24/22 documented as of this encounter
[2024-11-06 07:50] LABS: MANUAL DIFF FLAG NO
[2024-11-06 08:17] LABS: Basophils Absolute Auto 0.1 X10*3/uL (0.0-0.2); Basophils Percent Auto 1.3 % (0-2); Eosinophils Absolute Auto 0.2 X10*3/uL (0.0-0.4); Eosinophils Percent Auto 2.4 % (0-4); Hematocrit 51.1 % (42.0-52.0); Hemoglobin 17.3 g/dl (14.0-18.0); Imm Gran Abs Auto 0.08 X10*3/uL (0.00-0.03); Imm Gran Pct Auto 1.1 % (0.0-0.4); Lymphocytes Absolute Auto 2.5 X10*3/uL (1.2-4.9); Lymphocytes Percent Auto 33.6 % (20-40); Mean Corpuscular HGB Conc 33.9 g/dl (31.0-36.0); Mean Corpuscular Hemoglobin 29.4 pg (27.0-33.0); Mean Corpuscular Volume 86.8 fL (80.0-98.0); Mean Platelet Volume 10.5 fL (9.4-12.4); Monocytes Absolute Auto 0.6 X10*3/uL (0.1-1.2); Monocytes Percent Auto 7.7 % (2-11); Neutrophils Percent Auto 53.9 % (45-73); Platelet Count 211 X10*3/uL (160-400); Red Blood Count 5.89 X10*6/uL (4.60-5.80); Red Cell Distribution Width 13.5 % (11.0-16.0); White Blood Count 7.5 X10*3/uL (4.8-10.8)
[2024-11-06 08:56] LABS: Alanine Aminotransferase 83 U/L (0-40); Alkaline Phosphatase 78 U/L (39-117); Anion Gap 16 (12-20); Aspartate Amino Transferase 41 U/L (5-37); Bilirubin Total 0.5 mg/dL (0.0-1.0); Blood Urea Nitrogen 18 mg/dL (9-16); Calcium 10.2 mg/dL (8.4-10.2); Carbon Dioxide 26 mmol/L (22-29); Chloride 106 mmol/L (96-108); Cholesterol 220 mg/dL (<200); Estimated Glomerular Filt Rate 60; Glucose Fasting 92 mg/dL (60-99); HDL Cholesterol 48 mg/dL (>40); Iron 112 mcg/dL (45-160); LDL Cholesterol Calculated 117 mg/dL (<100); Percent Iron Saturation 34 % (15-50); Potassium 4.5 mmol/L (3.3-5.1); Sodium 143 mmol/L (135-145); Total Iron Binding Capacity 326 mcg/dL (228-428); Total Protein 7.5 g/dL (6.5-8.0); Triglycerides 276 mg/dL (<150); Unsaturated Iron Binding 214 ug/dL
[2024-11-06 08:57] LABS: Free T4 (Free Thyroxine) 0.96 ng/dL (0.71-1.85); Thyroid Stimulating Hormone 8.15 uIU/mL (0.32-4.0); Vitamin D 25-OH Total 47.7 ng/mL (>30)
[2024-11-06 09:11] LABS: Folate 10.3 ng/mL (> or = 4.0); Vitamin B12 654 pg/mL (200-900)
[2024-11-07 20:53] LABS: Thyroglobulin Antibodies <1 IU/mL (< or = 1); Thyroid Peroxidase Antibodies <1 IU/mL (<9)
[2024-11-09 14:19] LABS: Parietal Cell Antibody <=20.0 Unit (<=20.0)
[2024-11-09 20:43] LABS: Intrinsic Factor Antibodies Negative (Negative)
== END 2024-11-06 07:42 | disposition home or self-care (01) ==
LOC: HO.LAB 07:41
PROVIDERS: PCP Internal Medicine; Visit Provider Internal Medicine
DX: E55.9 Vitamin D deficiency, unspecified (principal); E07.9 Disorder of thyroid, unspecified; D64.9 Anemia, unspecified; E53.8 Deficiency of other specified B group vitamins; E78.5 Hyperlipidemia, unspecified; K21.9 Gastro-esophageal reflux disease without esophagitis
CPT/HCPCS: 36415; 80053; 80061; 82306; 82607; 82746; 83516; 83540; 84439; 84443; 85025; 86340; 86376; 86800

== ENCOUNTER 2024-11-30 09:33 | Outpatient (AMB) | payer OTHER, SELFPAY ==
[2024-11-30 09:40] VITALS: BP 120/92; PULSE 73; O2SAT 96; BMI 33.6
--- NOTE | 2024-11-30 09:40 | HO.NEPHOV_ITS ---
Vital Signs 11/30/24 09:40 Height 5 ft 5 in Weight 202 lb BMI 33.6 BP 120/92 H Blood Pressure Location Lt brachial Position Sitting Pulse 73 Pulse Source Pulse Oximeter Pulse Oximetry (%) 96 Oxygen Delivery Method Room Air Intake Visit Reasons: HTN/ 1 Year Fu/ Conf Network Desktop Support Specialist Required: Yes Network Desktop Support Specialist Name: merly Padilla Accompanied by: Mother Allergies No Known Allergies (No Known Allergies*) Allergy (Verified 11/30/24 09:43) Medication List - Last Reconciled 11/30/24 by Lance Schaefer MD alum-mag hydroxide-simeth 200-200-20 mg/5 mL ([place]) mL PO bevacizumab-awwb ([place]vas[place]) IV cholecalciferol (vitamin D3) (Vitamin D3) 50 mcg PO DAILY cyanocobalamin (vitamin B-12) 500 mcg PO DAILY fenofibrate 54 mg PO DAILY hydroxyzine HCl 10 mg PO BID levothyroxine 25 mcg PO DAILY 90 days lisinopril 5 mg PO DAILY meclizine 25 mg PO TID PRN meloxicam 15 mg PO DAILY pantoprazole 40 mg PO DAILY simvastatin 40 mg PO BEDTIME HPI Comments Details: 29-year-old man with a history of meningioma status post surgery. He has had hypertension which has been well controlled. He was accompanied by his mother. Network Desktop Support Specialist service was used. 11/30/24 The patient is a 29-year-old male presenting for follow-up for HTN and recently diagnosed with meningioma The patient has been diagnosed with a meningioma and is currently undergoing infusion therapy with bevacizumab . He has undergone surgeries on May 24 and February 16, 2024, for the removal of the meningioma. The patient reports stable condition with no recent changes in medication, and he is under the care of Dr. Smith and Dr. Redd in [place]. He was advised to avoid meloxicam due to potential kidney effects and to use Tylenol for pain management instead. [facility] Surgical History History of meningioma History of hernia surgery History of appendectomy Family History Mother Hyperthyroidism Depression Mental health disorder Father Hypercholesterolemia Depression Mental health disorder Social History (Reviewed 11/30/24 @ 09:43 by KETAN Mota Housing: House Alcohol intake: never Patient Tobacco Use Status: Never used Tobacco e-Cigarette/Vaping Use: Never Used Second Hand Smoke Exposure: No service: No Current occupational status: disabled Cognitive needs: No Hearing needs: No Vision needs: Yes Review of Systems Const Denies fever(s) and Denies weight loss Card Denies chest pain Resp Denies cough and Denies hemoptysis GI Denies abdominal pain, Denies diarrhea and Denies nausea Musc Denies back pain Neuro Denies focal weakness Physical Exam Vital Signs: Last Vital Signs Pulse 73 11/30/24 09:40 BP 120/92 H 11/30/24 09:40 Pulse Ox 96 11/30/24 09:40 Oxygen Delivery Method Room Air 11/30/24 09:40 BMI result Body Mass Index 33.6 Const General: comfortable Nutritional Appearance: well nourished Orientation/consciousness: patient oriented x3 HEENT Head: No normal to inspection Mouth: moist mucous membranes Neck Neck: Yes supple and Yes no JVD Resp Auscultation: clear to auscultation bilaterally, no rales and rub present Cardio Jugular venous distension: no JVD Palpation: no palpable S3 and no palpable S4 Heart sounds: no rubs GI Palpation (GI): Soft to palpation and nontender Percussion: No Fluid wave present General: Yes no CVA tenderness Back/Spine/Pelvis Back: no CVA tenderness Skin General skin exam: no rashes or lesions noted Neuro General: patient oriented x3 Extrem General: Yes no pedal edema and No clubbing Results Reviewed Nephrology Results: Hgb, (14.0-18.0) 17.3 g/dl 11/06/24 WBC, (4.8-10.8) 7.5 X10*3/uL 11/06/24 Plt Count, (160-400) 211 X10*3/uL 11/06/24 Sodium, (135-145) 143 mmol/L 11/06/24 Potassium, (3.3-5.1) 4.5 mmol/L 11/06/24 Chloride, (96-108) 106 mmol/L 11/06/24 Carbon Dioxide, (22-29) 26 mmol/L 11/06/24 BUN, (9-16) 18 mg/dL H 11/06/24 Creatinine, (0.5-1.4) 1.40 mg/dL 11/06/24 Calcium, (8.4-10.2) 10.2 mg/dL 11/06/24 Urine Protein, (Neg-Trace) Negative mg/dL 09/30/23 Urine Creatinine 183.67 mg/dL 09/30/23 Assessment & Plan Assessment & Plan (1) HTN (hypertension): Code(s): I10 - Essential (primary) hypertension Category: Medical Plan 29 yr old man well-controlled hypertension. Mild bump in Cr to 1.4 from 1.0 ? Hypoperfusion Increase PO fluid intake Encouraged him to stay on low-sodium diet REcheck labs in 6 weeks Continue with current dose of lisinopril. He will benefit from weight loss. We will continue to monitor renal panel along with urine protein creatinine ratio. All his questions were answered. No changes were made to the medications today. Orders: Orders Basic Metabolic Panel 6 Weeks I10 - Essential (primary) hypertension Coding Level of Care Code Est Pt Level 4 (38205) Diagnoses HTN (hypertension) I10
--- OUTSIDE RECORDS SUMMARY | 2024-11-30 10:38 | XMS_ITS | Data Portability ---
Author Organization [employer] [facility], [facility] Address [address] [place] [address] Care Team Providers Care Cattle Shipper Name Role Phone HIM CCA OTHER EUSEBIO BARON Primary Care Provider Assessment Encounter Date Assessment Date Assessment LastModified by Organization Details LastModified Time 07/21/2024 07/21/2024 I provided real -time medical direction via phone for this encounter, and was available for additional phone based assistance as needed. I have reviewed and agree with the Assessment and Plan as documented by the Pediatric Neuropsychologist. We discussed the diagnostic uncertainty of home visits and the risk associated with this. In this case the patient/mother/med ic and I felt this to be an acceptable and reasonable amount of risk given the benefit of avoiding an ED visit. The patient/mother given the opportunity to ask questions. Advised if develops CP/severe SOB/turning blue/uncontrolled n/v/d / AMS/ syncope/ hi fever unresponsive to APAP to call 911- they verbalized understanding of instruction [email or web address] Not available 07/21/2024 16:11:52 10/13/2024 10/13/2024 I provided real -time medical direction via phone for this encounter and was available for additional phone-based assistance as needed. I have reviewed and agree with the Assessment and Plan as documented by the Pediatric Neuropsychologist. Patient given the opportunity to ask questions. Our service contacted for an assessment of: diarrhea, nausea As per above, patient with recent injection of mvasi-bevcizumab and pembrolizumab that is not new and he takes every 21 days, calls this service for diarrhea with some nausea. Poor intake prior to today. Today eating and drinking. Denies abd pain, blood in stool, dark or tarry stools. Positive sick contacts with the family with same complaints. Everyone's symptoms are improving Per trains dispatcher supervisor on the scene, VSS, NAD, appears hydrated. Pain to palpation to left side of abd. Neg rebound per trains dispatcher supervisor . BMP was reviewed. Impression and plan: nausea and diarrhea. Differential diagnosis includes viral gastroenteritis given other family members are ill. Review of patient's and family members dietary history is less suggestive of food poisoning. Symptoms are are overall improving. Per trains dispatcher supervisor on the scene there is no concerning subjective or objective findings to warrant an emergent emergency room evaluation. Additionally the patient appears well hydrated to the trains dispatcher supervisor on the scene and is not orthostatic. The patient is able to eat and drink now and symptoms are mostly resolved. We discussed the importance of follow-up and symptom management. The patient will continue to observe symptoms and monitor himself. Also will continue to try to advance diet and will continue with oral hydration. Discussed having a low threshold to seek an emergency room visit for a CT scan abdomen as infectious etiology including diverticulitis remains on differential. Patient voiced understanding. Patient is agreement with the plan as described above. Allergies: Reviewed PCP f/u: We discussed the diagnostic uncertainty of home visits and the risk associated with this. In this case, the patient and I felt this to be an acceptable and reasonable amount of risk given the benefit of avoiding an ED visit. We discussed the need to seek care urgently/emergentl y in the setting of any new or worsening serious symptoms, particularly fever chills lightheadedness altered mental status [email or web address] Not available 10/13/2024 12:35:05 Plan of Treatment Reminders Order Date Submit Date Provider Last Modified By Organization Details Last Modified Time Details Appointments None recorded. Lab BMP, serum or plasma 2024 025 BRYAN [facility], [address] [place] [address], [id number] 5 12:36:52 rapid flu (A+B) 2024 025 [email or web address] 0 [facility], [address] [place] [address], [id number] 5 11:17:03 rapid SARS CoV 2 Ag, QL IA, respiratory specimen 2024 025 [email or web address] [address], [phone] 5 11:10:03 Referral None recorded. Procedures None recorded. Surgeries None recorded. Imaging None recorded. Medication Orders azithromyci n 250 mg tablet 2024 025 [email or web address] 0 [facility], [address] [place], [address], 5 11:09:26 benzonatate 100 mg capsule 2024 025 [email or web address] 0 Oleg [facility], [address] [place], [address], 5 11:09:26 azithromyci n 250 mg tablet 2024 025 [email or web address] 0 [facility], [address] [place], [address], 5 16:12:47 benzonatate 200 mg capsule 2024 025 [facility], [address] [place], [address], 5 11:19:20 Saline Nasal Mist 0.65 % spray aerosol 2024 025 [facility], [address] [place], [address], 5 11:19:20 Patient TargetsNo targets recorded. Patient InstructionsNo instructions recorded. Reason for Referral None Reported. Results Created Date Observation Date Name Description Value Unit Range Abnormal Flag Note LastModifiedBy Organization Detail LastModifiedTime 07/21/1907/21/2024 rapid SARS CoV 2 Ag, QL IA, respi rator y speci men rapid SARS CoV 2 Ag, QL IA, respiratory specimen negati ve Not Available [facility] - [facility] [address] [place] [address], [id number] 07/21/2024 11:09:43 07/21/19 25 07/21/2024 rapid flu (A+B) Flu negati ve Not Available Main - [facility] ed [address] [place] [address], [id number] 07/21/2024 11:09:38 Result Notes None recorded. Medical Equipment None Reported. Allergies No known drug allergies Medications Name Sig Start Date Stop Date Status Note LastModified by Organization Details LastModified Time cyclobenzapr ine 10 mg tablet active Not Available Not Available Not Available acetaminophe n 325 mg tablet active Not Available Not Available Not Available polyethylene glycol 3350 17 gram oral powder packet active Not Available Not Available Not Available azithromycin 250 mg tablet Take 1 tablet every day by oral route after meal(s) for 4 days. active Not Available Not Available No t Available IBU 800 mg tablet TAKE ONE TABLET EVERY 8 HOURS NEEDED FOR PAIN active Not Available Not Available No t Available tizanidine 4 mg tablet active Not Available Not Available No t Available benzonatate 200 mg capsule Take 1 capsule 3 times a day by oral route as needed, for cough. active Not Available Not Available No t Available levetiraceta m 500 mg tablet TAKE ONE TABLET TWICE DAILY FOR SIX DAYS active Not Available Not Available No t Available polyvinyl alcohol 1.4 % eye drops PLACE ONE DROP IN EACH EYE FIVE TIMES DAILY active Not Available Not Available No t Available vancomycin 5 gram intravenous solution active Not Available Not Available Not Available prochlorpera zine maleate 10 mg tablet active Not Available Not Available Not Available simvastatin 80 mg tablet TAKE ONE TABLET EVERY DAY active Not Available Not Available No t Available ciprofloxaci n 500 mg tablet active Not Available Not Available Not Available Deep Sea Nasal 0.65 % spray aerosol 2 puffs each nostril every 3-4 hours as needed for 10 days active Not Available Not Available No t Available famotidine 20 mg tablet TAKE ONE TABLET TWICE DAILY FOR SIX DAYS active Not Available Not Available No t Available cyanocobalam in (vit B-12) 500 mcg tablet TAKE ONE TABLET EVERY DAY active Not Available Not Available No t Available linezolid 600 mg tablet active Not Available Not Available Not Available OneTouch Ultra Test strips active Not Available Not Available Not Available dexamethason e 1 mg tablet TAKE DIRECTED ON attached sheet active Not Available Not Available No t Available pantoprazole 40 mg tablet,delay ed release TAKE ONE TABLET DAILY active Not Available Not Available No t Available lisinopril 5 mg tablet TAKE ONE TABLET EVERY DAY active Not Available Not Available No t Available vancomycin 10 gram intravenous solution active Not Available Not Available Not Available ibuprofen 600 mg tablet TAKE ONE TABLET EVERY 6 HOURS NEEDED FOR PAIN active Not Available Not Available No t Available methylpredni solone 4 mg tablets in a dose pack TAKE DIRECTED ON PACKAGE active Not Available Not Available No t Available ceftriaxone 10 gram solution for injection active Not Available Not Available No t Available hydroxyzine HCl 10 mg tablet TAKE ONE TABLET TWICE DAILY NEEDED FOR ITCHING active Not Available Not Available Not Available ceftriaxone 2 gram solution for injection active Not Available Not Available No t Available oxycodone 5 mg tablet TAKE ONE OR TWO TABLETS EVERY 4 HOURS NEEDED FOR PAIN active Not Available Not Available No t Available cholecalcife rol (vitamin D3) 50 mcg (2,000 unit) tablet TAKE ONE TABLET EVERY DAY active Not Available Not Available No t Available fenofibrate 54 mg tablet TAKE ONE TABLET EVERY DAY active Not Available Not Available No t Available Antacid-Anti gas 200 mg-200 mg-20 mg/5 mL oral suspension Take 30 mL by mouth 3 times daily as needed for heartburn and epigastric pain active Not Available Not Available No t Available Artificial Tears (jd036-izkfe hannah-glyceri n) 1 %-0.2 %-0.2 % eye drops PLACE ONE DROP IN EACH EYE FIVE TIMES DAILY active Not Available Not Available No t Available Eliquis 5 mg tablet active Not Available Not Available Not Available OneTouch Ultra2 Meter active Not Available Not Available Not Available OneTouch Delica Plus Lancet 33 gauge active Not Available Not Available Not Available Vitals Date Recorded Oxygen saturation Oxygen saturation in Arterial blood by Pulse oximetry Respiratory rate Body temperature Heart rate Systolic blood pressure Diastolic blood pressure Provider Name and Address Organization Details Last Updated DateTime 5 97 % 97 % 16 /min 98.4 [degF] 94 /min 136 mm[Hg] 88 mm[Hg] Not Available [facility] 5 11:06:38 Date Recorded Heart rate Respiratory rate Body temperature Oxygen saturation Oxygen saturation in Arterial blood by Pulse oximetry Systolic blood pressure Diastolic blood pressure Provider Name and Address Organization Details Last Updated DateTime 5 86 /min 18 /min 97.3 [degF] 96 % 96 % 142 mm[Hg] 95 mm[Hg] Not Available [facility] 5 09:43:39 Social History None recorded. Functional Status None recorded. Mental Status None recorded. Family History Nothing Reported. Medical History No medical history recorded. Past Encounters Encounter ID Performer Location Encounter Start Date Encounter Closed Date Diagnosis/Indication Diagnosis SNOMED-CT Code Diagnosis ICD10 Code Diagnosis Note [id number] Kellie Lennon MD [facility] - [facility] [address] [place] [phone] 07/21/2024 11:06:36 07/22/2024 09:43:11 Upper respiratory infection 77638689 J06.9 possible sinusitis- where patient is immune compromise d on immunother apy infusions and had a fever of 102.9 earlier and rapid viral testing is negative I will cover with antibiotic s. They are requesting a cough suppressan t, aware benzonatat e is not covered.Al jeffreygimary and pharmacy reviewedSu ggested Tylenol 1 g every 8 hours if remains febrile, to stay well-hydra gualberto, warm compresses to sinuses-pa tient and mother verbalized understand ing to the medic [id number] Pat Hernandez MD Main - [facility] [address] [place] [phone] 10/13/2024 09:43:34 10/13/2024 19:23:30 Nausea and vomiting [id number] R11.2 Health Concerns Section Related Observation LastModified by Organization Detai ls LastModified Time None Recorded Concern Status LastModified by Organization Details LastModified Time None Recorded Advance Directives Directive None Recorded Payers Insurance Date Sequence Insurance Name Policy Number Policy Bell Covered Member ID Bell Member ID Guarantor Name 10/13/2024 1 [facility] - DOS ON OR AFTER 2022 - DUAL ELIGIBLE - SENIOR LIVING OPTIONS AND ONE CARE (MEDICARE REPLACEMENT/ADV ANTAGE - HMO) Koffi Lee ra [id number] Koffi De León Notes Date Note Type Note Provider Name and Address Organization Details Recorded Time 07/21/2024 text/html HPI: 08:12am MBR and EC1 request [facility] visit for URI symptoms. They decline ED as AAKASH is an infusion patient and they fear exposure to other illnesses. AAKASH is a 29 y/o male with a PMH of, but not limited to: mild intellectual disability, brachydactyly, HLD, HTN, dural venous sinus thrombosis, GERD, obesity, chronic pain, benign neoplasm of brain (meningioma), Barton s palsy, chromosomal abnormality, anxiety, and juvenile arthritis. EC1 reports that AAKASH has been feeling unwell since Wednesday and is experiencing a non-productive cough, green nasal discharge, headaches, and body aches. EC1 states that AAKASH had a temp of 102.9 last night, but at this time, temp is 98.8. BPs were also taken and are 156/75 and 165/89 respectively. AAKASH is eating, drinking, and voiding without issue. AAKASH denies CP, SOB, wheezing, or any other symptoms. AAKASH is congested-sounding to this typewriter assembler, but no stridor or wheezing could be appreciated. As an aside: AAKASH had brain surgery in 02/2011 and 12/2023 for meningiomas and he is currently receiving infusions of Mvasi-Bevacizumab and Pembrolizumab every 21 days. His last doses were on 07/10/24, his next doses are due 07/31/24. MBR and EC1 are assured that an [facility] referral will be placed on MBRs behalf. After confirming MBRs address and phone number on file, this CRU RN strongly recommends transport to ED via 911 for any new or worsening symptoms. Both MBR and caller understand and will do so if necessary. This call originated from [phone]. ...................... ...................... ...................... ...................... ...................... ...................... ......... [facility] Nurse Triage Notes (Socorro Cronin - RN): Chief Complaints: Common cold symptoms, Cough, Fatigue, Fever/chills, Headache, Weakness PMH: Anxiety Disorder, Chronic Pain, Gastroesophageal Reflux Disease (GERD), Hyperlipidemia, Hypertension, Obesity PMH Reviewed at 07/21/2024 - :08 Allergies Reviewed at 07/21/2024 - :08 Comments: HPI reviewed- [place] Pediatric Neuropsychologist Organization Information for Kurt [employer] Legal Name: [employer] Address: [address] [place] [id number], Dog Bather: Joey Blackwell MD [facility] No.: [id number] Pediatric Neuropsychologist POC Test Results from [employer] - ALS Rapid COVID antigen (10:56:54) COVID: - Rapid influenza antigen (10:56:55) Flu: - ...................... ...................... ...................... ...................... ...................... ...................... ......... Pediatric Neuropsychologist Note From Kurt Oneal: Dispatched to the call address for the male with cold like symptoms. Pt states since Wednesday he has been feeling ill with dry cough, body aches, chills and nasal congestion. He has been able to maintain PO hydration. This morning around 0400 he had a fever and took Tylenol which had good effect. He denies chest pain, SoB/difficulty breathing, abd pain or n/v/d at this time. Pt was found sitting on living room couch, CAOx3, airway open and patent, breathing non labored, able to speak in full sentences, -JVD, -HEENT, skin PWD with good turgor, mucous membranes pink and moist, pupils PERRL, lungs CTA, abd soft non tender/distended, -edema/swelling, - facial/sinus tenderness, Afebrile, Rapid coivd/flu (-). [facility] consulted. Pt given 200mg Benzonatate and 500mg Azithromycin PO. Scripts called into preferred pharmacy. Red flags discussed. ALL times are approx. [facility] Lab Orders: rapid flu (A+B): Performed rapid SARS CoV 2 Ag, QL IA, respiratory specimen: Performed [facility] Medication Orders: azithromycin 250 mg tablet: Administered benzonatate 100 mg capsule: Administered ...................... ...................... ...................... ...................... ...................... ...................... ......... [facility] Consulted: Kellie Lennon ...................... ...................... ...................... ...................... ...................... ...................... ......... Disposition: Fulfilled Kellie Lennon MD [address] [place] [address],[address] [facility], [place], [address], [employer] 07/21/2024 16:13:27 10/13/2024 text/html [facility] Nurse Triage Notes (Liam Winter): Reason For Request: Pt's mother reporting constant diarrhea>not feeling well since this past Wednesday; 1 instance of vomiting>pt is receiving infusions every 21 days, trying to avoid ED Patient Reports: Sharp focal or diffuse abdominal pain ; Vague abdominal pain greater than 24 hours; Diarrhea no blood in stool; Nausea with or without vomiting; Inability to tolerate foods, fluids or daily medicationsDenies: Vomiting blood/coffee ground material Bloating, jaundice new onset with pain Nausea and vomiting greater than 2 hours with abdominal pain Tearing pain that radiates to back Food Impaction Constipation Chief Complaints: Diarrhea, Nausea / VomitingPMH: Anxiety Disorder, Chronic Pain, Gastroesophageal Reflux Disease (GERD), Hyperlipidemia, Hypertension, ObesityPMH Reviewed at 10/13/2024:43Allergies Reviewed at 10/13/2024:43Pain Assessment: Level null out of 10Comments: 29 y.o male complains of Diarrhea, Nausea / Vomiting CG reports the pt is feeling unwell with since Wednesday with diarrhea, nausea and /vomiting - Abdominal pain/lower back pain - 12/14 - Decreased PO intake. Reports taking Tylenol and Pepto-Bismol with no relief. CG reports the pt infusion every 21 days - mvasi-bevcizumab and pembrolizumab Denies fever Concerns expressed and the CG is trying to avoid the ER - Wellness check requested I provided information on the mobile health provider response time and advised the patient and/or caregiver to monitor reported signs and symptoms. I discussed the warning signs of when to seek emergency care. Pediatric Neuropsychologist Organization Information for Enrique Crow [employer] Legal Name: [facility] [employer] Address: [address] [place] [address], [place] [address], Dog Bather: Jhon Motley MD CLIA No.: [id number] Pediatric Neuropsychologist POC Test Results from [employer] [facility] (09:55:12) pH: 7.362 pH units pCO2: 50.2 mmHg pO2: 29.7 mmHg Na: 146 mmol/L K: 3.9 mmol/L iCa: 1.20 mmol/L Cl: 107 mmol/L TCO2: 27.8 mEq/L Hct: 46 % Hb: 15.6 g/dL Glu: 80 mg/dL Lac: 1.21 mmol/L Cr: 0.93 mg/dL BUN: 12.6 mg/dL A mmol/L HCO3: 28.5 mmol/L ...................... ...................... ...................... ...................... ...................... ...................... ......... Pediatric Neuropsychologist Note From Enrique Crow: Arrived to find patient ambulating in the residence. Patient aox4 GCS 15 skin pink warm and dry n patient has been endorsing vomiting abdominal pain and diarrhea since Wednesday. Patient a stated that he has been having diarrhea approximately 7 days. Patient able to tolerate PO intake. VS as noted. Afebrile. [facility] contacted and advised blood work. Patient blood work obtained as noted. Patient abdomen tender to left side. [facility] and provider advised if he has increased pain to go to hospital for evaluation for diverticulitis. Patient in agreement [facility] Lab Orders: BMP, serum or plasma: Performed ...................... ...................... ...................... ...................... ...................... ...................... ......... [facility] Consulted: Pat Hernandez ...................... ...................... ...................... ...................... ...................... ...................... ......... Disposition: Andrea Hernandez MD [address] [facility],[address], [place], [address], JONH NUNEZ 10/13/2024 12:35:13
== END 2024-11-30 10:02 | disposition home or self-care (01) ==
LOC: HO.HKA 09:34
PROVIDERS: PCP Internal Medicine; Visit Provider Internal Medicine Hypertension Specialist
DX: I10 Essential (primary) hypertension (principal)
CPT/HCPCS: 99214

== ENCOUNTER → 2024-11-30 09:33 | Outpatient (BNVA) | payer OTHER, SELFPAY | PROVIDERS: PCP Internal Medicine; Visit Provider Internal Medicine Hypertension Specialist | DX: I10 Essential (primary) hypertension (principal) | CPT/HCPCS: 99212 ==

== ENCOUNTER 2025-01-08 09:12 | Outpatient (REF) | payer OTHER, SELFPAY ==
--- OUTSIDE RECORDS SUMMARY | 2025-01-08 09:37 | XMS_ITS | Clinical Summary ---
Author Organization [facility] Address [address] [facility] [address] [place] [address] Phone Care Team Providers Care Hydraulic Jack Adjuster Name Role Phone Rebecca Collazo MD Primary Care Provider [phone] Allergies Active Allergy Reactions Criticality Noted Date [...] (06/16/2021): History of pauciarticular CAROLINE, DX in [place], Enbrel for 6 years,D/C'ed for development of [...] of 3 - 19+ 3-dose series) 2014 Influenza Vaccine (#1) 2025 , 04/11/2019 Pneumococcal Vaccine: Peds ( 0 to 5 Years) and At-Risk Patients (6 to 49 Years) Aged Out No longer eligi ble based on patient's age to complete this topic Insurance MCR ([id number]) DILMA BOSE [id number] MCR ([id number]) DILMA BOSE [id number] Care Teams Hydraulic Jack Adjuster Relationship Specialty Start Date End Date Rebecca Collazo MD [address] [address] PCP - General 06/17/20
--- OUTSIDE RECORDS SUMMARY | 2025-01-08 09:37 | XMS_ITS | Clinical Summary ---
Author Organization 175 [facility] Address [address] [place] [address] Phone Care Team Providers Care Clerk Specialist Name Role Phone Rebecca Collazo MD Primary Care Provider Allergies No known active allergies Medications blood-glucose meter kit 1 Each by Does not apply route daily. 03/13/20 24 Active ONETOUCH ULTRASOFT LANCETS [facility] Use daily to check blood sugars. 03/13/20 24 Active hydrOXYzine HCL (ATARAX) 10 mg tablet Take 1 Tablet by mouth every 6 hours as needed for Itching. 03/13/20 24 Active p.glycol algin/polysorb ates ([employer] TOP) 3 Packages by Does not apply route continuous. 03/13/20 24 Active lisinopriL (PRINIVIL,ZEST RIL) 5 mg tablet Take 1 Tablet by mouth daily. 03/13/20 24 Active cholecalcifero l (VITAMIN D-3) 50 mcg (2,000 unit) tablet Take 1 Tablet by mouth daily. 03/13/20 24 Active cyanocobalamin (VITAMIN B-12) 500 mcg tablet Take 1 Tablet by mouth daily for 360 days. 03/13/20 24 025 Active pantoprazole (PROTONIX) 40 mg EC tablet Take 1 Tablet by mouth daily. 03/13/20 24 Active Eliquis 5 mg tablet 04/25/20 24 Active tiZANidine (ZANAFLEX) 4 mg tablet Take 1 tablet (4 mg total) by mouth 1 (one) time each day if needed for muscle spasms. 30 tablet 1 05/05/20 24 Active pantoprazole (PROTONIX) 40 mg EC tablet Take 1 tablet (40 mg total) by mouth 2 (two) times a day. Take on empty stomach, wait 30 mins and then eat to activate the medication before breakfast and supper 60 each 11 08/29/19 25 026 Active OneTouch Ultra Test test strip USE TO TEST 1 TIME DAILY 100 strip 1 10/10/19 25 Active simvastatin (ZOCOR) 40 mg tablet Take 1 tablet (40 mg total) by mouth at bedtime. 30 each 5 10/25/19 25 Active aluminum-magne sium hydroxide-alma thicone (Antacid-Antig as) 200-200-20 mg/5 mL suspension Take 30 mL by mouth 4 (four) times a day (before meals and nightly). 3600 mL 1 12/06/19 25 Active fenofibrate (LOFIBRA) 54 mg tablet TAKE 1 TABLET BY MOUTH ONCE DAILY 30 tablet 12/16/19 25 Active fenofibrate (LOFIBRA) 54 mg tablet TAKE 1 TABLET BY MOUTH ONCE DAILY 30 tablet 11/16/19 25 025 Discontinued Active Problems Problem Noted Date Diagnosed Date Vision disturbance 04/27/2024 Chest pain 05/07/2023 Overview (04/27/2024): Last Assessment & Plan: The patient has been endorsing a few episodes of atypical chest discomfort. Given the description of his symptoms, it is unlikely that this is cardiac in nature, however given the patient's history of hypertension and hyperlipidemia, I recommended the patient complete an exercise stress test. The patient has had an echocardiogram in the past which showed normal LV function and no significant valvular disease. I will notify the patient of the results as soon as the become available. Chronic lumbar pain 10/08/2020 Mass of scalp 04/16/2020 Cough 07/20/2019 Essential hypertension 03/07/2019 Overview (04/27/2024): Last Assessment & Plan: Patient has a history of hypertension. His blood pressures have been well controlled at home. His blood pressure is acceptable today. At this point, he will continue his current antihypertensive medication regimen with lisinopril. He will notify me if his blood pressures remain consistently elevated at home. 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 He continues on simvastatin 80 mg orally daily and fenofibrate. He recently had a cholesterol levels drawn in December. His triglyceride levels were elevated. His cholesterol level and LDL cholesterol were well controlled. I have reviewed with the patient the importance of a heart healthy lifestyle which includes eating a low-fat low-salt diet, getting regular exercise, maintaining a healthy weight, not smoking, and following up with routine medical care. 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 Overview (04/27/2024): Hypermelanosis of [place] Alopecia 08/19/2016 GERD (gastroesophageal reflux disease) 6 Encounters Date Type Department Care Team Description 10/24/2024 Telephone Internal Medicine - [address] [place] [id number] Rebecca Collazo MD [place]: Medication from Last 3 Months Immunizations Name Administration Dates Next Due Influenza Quadravalent, MDCK , 0.5ml, preservative free (Flucelvax) 6mo and older 03/08/2020,04/11/2019 Moderna SARS-CoV-2 COVID-19, mRNA, LNP-S, preservative free 10/30/2020 Surgical History Surgery Date Site/Laterality Comments APPENDECTOMY PROCEDURE: IA APPENDECTOMY FOOT SURGERY PROCEDURE: IA UNLISTED PROCEDURE FOOT/TOES HERNIA REPAIR PROCEDURE: HISTORICAL HERNIA REPAIR/ING Medical History Medical History Date Comments 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 Hypermelanosis DX:Hypermelanosi s; COMMENT: hypermelanosis of [place] CAROLINE (juvenile idiopathic art hritis) ([facility] V24, [facility] V28) DX:CAROLINE (juvenile idiopathic arthritis) ([facility]) Vision disturbance DX:Vision dis turbance Alopecia DX:Alopecia Allergic rhinitis 09/06/2017 DX:Allergic rh initis Anxiety 05/03/2017 DX:Anxiety GERD (gastroesophageal reflu x disease) 02/07/2016 DX:GERD (gastroesophageal re flux disease) Hyperlipidemia 02/03/2018 DX:Hyperlipidemi a NSAID long-term use 06/14/2017 DX:NSAID francesca g-term use On etanercept therapy 06/14/2017 DX:On terrie ercept therapy Family History Medical History Relation Name Comments Arthritis Aunt Asthma Brother Coronary artery disease Father Diabetes Father Hypertension Father Lung cancer Maternal Grandmother Hyperthyroidism Other 1 Hyperlipidemia Other 2 Relation Name Status Comments Aunt Brother Alive Father Maternal Grandmother Mother Alive Other 1 Other 2 Social History Tobacco Use Types Packs/Day Years [...] on file Sexual Orientation Not on file Obstetrics History Last Filed Vital Signs Vital Sign Reading Time Taken Comments Blood Pressure 130/84 08/28/2024 11:23 AM EDT Pulse 78 08/28/2024 11:23 AM EDT Temperature 36.4 C (97.5 F) 08/04/2024 2:32 PM EST Respiratory Rate - - Oxygen Saturation 98% 08/04/2024 2:32 PM EST Inhaled Oxygen Concentration - - Weight 90.3 kg (199 lb) 08/28/2024 11:23 AM EDT Height 165.1 cm (5' 5 ) 08/28/2024 11:23 AM EDT Body Mass Index 33.12 08/28/2024 11:23 AM EDT Plan of Treatment Upcoming Encounters Date Type Department Care Team (Late st Contact Info) Description 02/02/2025 10:00 AM EDT Office Visit Gastroenterology - [place] 175 [facility] 175 [facility] [address] [place] [id number] Alyssia Dennis, FELICIA 175 [facility] [address] [place] [address] Health Maintenance Due Date Last Done Comments DTaP,Tdap,and Td Vaccines (1 - Tdap) 2014 Hepatitis B Vaccines (1 of 3 - 19+ 3-dose series) 2014 HIV Screening 05/16/2022 Medicare Annual Wellness Visit 05/16/2022 Social Influencers of Health Screening 05/16/2022 COVID-19 Vaccine ( - season) 2024 06/02/2021, 10/30/2020, 09/28/2020 Depression Screening 06/07/2024 Influenza Vaccine (#1) 2025 , 03/08/2020, 04/11/2019 Hypertension/CHF/CAD Annual BMP Blood Test 08/29/2025 08/29/2024, 08/09/2024, 03/23/2024, Additional history exists Cholesterol Screening (Lipid Panel) 08/09/2029 08/09/2024, 03/23/2024, 03/23/2024 Hepatitis C Screening Completed 03/23/2019 HIB Vaccines Aged Out No longer eligi ble based on patient's age to complete this topic HPV Vaccines Aged Out No longer eligi ble based on patient's age to complete this topic Hepatitis A Vaccines Aged Out No long er eligible based on patient's age to complete this topic IPV Vaccines Aged Out No longer eligi ble based on patient's age to complete this topic MMR Vaccines Aged Out No longer eligi ble based on patient's age to complete this topic Meningococcal ACWY Vaccine Aged Out N o longer eligible based on patient's age to complete this topic Meningococcal B Vaccine Aged Out No l onger eligible based on patient's age to complete this topic Pneumococcal Vaccine: Pediatrics (0 to 5 Years) and At-Risk Patients (6 to 49 Years) Aged Out No longer eligible based on patient's age to complete this topic RSV Immunization Patients Under 20 months Aged Out No longer eligible based on patient's age to complete this topic Varicella Vaccines Aged Out No longer eligible based on patient's age to complete this topic Procedures Procedure Name Priority Date/Time Associated Diagnosis Comments COMPREHENSIVE METABOLIC PANEL Routine 08/29/2024 7:48 AM EDT Epigastric pain Gastroesophageal reflux disease without esophagitis LIPID PANEL WITH REFLEX TO DIRECT LDL Routine 08/09/2024 7:56 AM EST Chronic bilateral low back pain without sciatica Brachydactyly type A2 Gastroesophageal reflux disease without esophagitis Meningioma ([facility] V24, [facility] V28) Mixed hyperlipidemia Essential hypertension Vitamin D deficiency Adult general medical examination HEPATITIS C SCREENING Routine 03/23/2019 from Last 3 Months or Most Recently Relevant to Health Maintenance Results * (ABNORMAL) Comprehensive metabolic panel (08/29/2024 7:48 AM EDT) Sodium 143 133 - 145 mmol/L LAB CHEMISTRY METHOD 08/29/2024 11:06 AM [facility] Potassium 4.1 3.5 - 5.5 mmol/L LAB CHEMISTRY METHOD 08/29/2024 11:06 AM [facility] Chloride 108 96 - 110 mmol/L LAB CHEMISTRY METHOD 08/29/2024 11:06 AM [facility] CO2 27 21 - 32 mmol/L LAB CHEMISTRY METHOD 08/29/2024 11:06 AM [facility] Anion Gap 8 3 - 11 LAB CHEMISTRY METHOD 08/29/2024 11:06 AM [facility] Glucose 87 70 - 100 mg/dL LAB CHEMISTRY METHOD 08/29/2024 11:06 AM [facility] BUN 14 5 - 25 mg/dL LAB CHEMISTRY METHOD 08/29/2024 11:06 AM [facility] Creatinine 1.16 0.70 - 1.30 mg/dL LAB CHEMISTRY METHOD 08/29/2024 11:06 AM [facility] eGFR 87 >=60 mL/min/1. 73m2 LAB CHEMISTRY METHOD 08/29/2024 11:06 AM [facility] Comment:Calculation based on the Chronic Kidney Disease Epidemiology Collaboration (CKD-EPI) equation refit without adjustment for race. BUN/Creatinine Ratio 12.1 LAB CHEMISTRY METHOD 08/29/2024 11:06 AM [facility] Calcium 9.6 8.5 - 10.5 mg/dL LAB CHEMISTRY METHOD 08/29/2024 11:06 AM [facility] AST (SGOT) 48(H) 10 - 42 unit/L LAB CHEMISTRY METHOD 08/29/2024 11:06 AM [facility] ALT (SGPT) 106(H) 10 - 60 unit/L LAB CHEMISTRY METHOD 08/29/2024 11:06 AM [facility] Alkaline Phosphatase 73 42 - 121 unit/L LAB CHEMISTRY METHOD 08/29/2024 11:06 AM [facility] Total Protein 6.9 6.0 - 8.0 g/dL LAB CHEMISTRY METHOD 08/29/2024 11:06 AM [facility] Albumin 4.3 3.2 - 5.0 g/dL LAB CHEMISTRY METHOD 08/29/2024 11:06 AM [facility] Total Bilirubin 0.4 0.0 - 1.4 mg/dL LAB CHEMISTRY METHOD 08/29/2024 11:06 AM [facility] Blood Venous blood specimen / Unknown Venipuncture / Unknown 08/29/2024 7:48 AM EDT 08/29/2024 10:16 AM EDT [place] LAB BLOOD ORDERABLES Final Resu lt [facility] [address] [place] [address], * (ABNORMAL) Lipid panel with reflex to direct LDL (08/09/2024 7:56 AM EST) Cholesterol 234(H) 0 - 200 mg/dL LAB CHEMISTRY METHOD 08/09/2024 9:07 AM EST [facility] Triglycerides 253(H) 0 - 150 mg/dL LAB CHEMISTRY METHOD 08/09/2024 9:07 AM EST [facility] HDL 52 >=40 mg/dL LAB CHEMISTRY METHOD 08/09/2024 9:07 AM [facility] LDL Calculated 131(H) 0 - 100 mg/dL LAB CHEMISTRY METHOD 08/09/2024 9:07 AM [facility] VLDL Cholesterol Robert 50.6 mg/dL LAB CHEMISTRY METHOD 08/09/2024 9:07 AM [facility] Non HDL Chol. (LDL+VLDL) 182(H) <145 mg/dL LAB CHEMISTRY METHOD 08/09/2024 9:07 AM [facility] Chol/HDL Ratio 4.5(H) 0.0 - 4.4 LAB CHEMISTRY METHOD 08/09/2024 9:07 AM [facility] Blood Venous blood specimen / Unknown Venipuncture / Unknown 08/09/2024 7:56 AM EST 08/09/2024 8:34 AM EST us Rebecca Collazo MD LAB BLOOD ORDERABLES Final Res ult [facility] [address] [place] [address], * Hepatitis C Screening (03/23/2019) Hepatitis C Screening Abstracted us Historical Provider HEALTH MAINTENANCE Final Result from Last 3 Months or Most Recently Relevant to Health Maintenance Insurance [employer] Member Subscriber Plan / Payer (Ef fective 2018-Present) Name:KOFFI HERNÁNDEZ Relation to Subscriber:Self Name:Koffi Paez Payer ID:[id number] Group ID:[id number] Type:Not on file Address: [address] [place] [phone] Care Teams Clerk Specialist Relationship Specialty Start Date End Date Rebecca Collazo MD [address] [phone] PCP - General Internal Medicine 02/24/22
[2025-01-08 10:57] LABS: Anion Gap 12 (12-20); Blood Urea Nitrogen 16 mg/dL (9-16); Calcium 9.6 mg/dL (8.4-10.2); Carbon Dioxide 22 mmol/L (22-29); Chloride 111 mmol/L (96-108); Estimated Glomerular Filt Rate > 60; Potassium 4.2 mmol/L (3.3-5.1); Sodium 141 mmol/L (135-145)
[2025-01-08 11:01] LABS: Thyroid Stimulating Hormone 7.88 uIU/mL (0.32-4.0)
== END 2025-01-08 09:13 | disposition home or self-care (01) ==
LOC: HO.LAB 09:12
PROVIDERS: Absent Provider Internal Medicine Hypertension Specialist; Visit Provider Internal Medicine
DX: I10 Essential (primary) hypertension (principal); E07.9 Disorder of thyroid, unspecified
CPT/HCPCS: 36415; 80048; 84443

== ENCOUNTER 2025-01-09 10:12 | Outpatient (AMB) | payer OTHER, SELFPAY ==
[2025-01-09 10:13] VITALS: BP 140/82; PULSE 69; O2SAT 98; BMI 33.8
--- NOTE | 2025-01-09 10:13 | HO.NEPHOV ---
Vital Signs 01/09/25 10:13 01/09/25 10:26 Height 5 ft 5 in Weight 203 lb BMI 33.8 BP 140/82 H 120/80 Blood Pressure Location Rt brachial Rt brachial Position Sitting Sitting Pulse 69 Pulse Source Pulse Oximeter Pulse Oximetry (%) 98 Oxygen Delivery Method Room Air Intake Visit Reasons: 6 weeks fu/ LVM [employer] Bookkeeper Required: Yes [employer] Bookkeeper Name: Ronda [id number] Accompanied by: Mother Allergies No Known Allergies (No Known Allergies*) Allergy (Verified 01/09/25 10:16) Medication List - Last Reconciled 01/09/25 by Lance Schaefer MD alum-mag hydroxide-simeth 200-200-20 mg/5 mL ([place]) mL PO bevacizumab-awwb (Mvasi) IV cholecalciferol (vitamin D3) (Vitamin D3) 50 mcg PO DAILY cyanocobalamin (vitamin B-12) 500 mcg PO DAILY fenofibrate 54 mg PO DAILY hydroxyzine HCl 10 mg PO BID levothyroxine (Levoxyl) 50 mcg PO DAILY 90 days levothyroxine 25 mcg PO DAILY lisinopril 5 mg PO DAILY meclizine 25 mg PO TID PRN meloxicam 15 mg PO DAILY pantoprazole 40 mg PO DAILY simvastatin 40 mg PO BEDTIME HPI Comments Details: 29-year-old man with a history of meningioma status post surgery. He has had hypertension which has been well controlled. He was accompanied by his mother. [employer] Bookkeeper service was used. 11/30/24 The patient is a 29-year-old male presenting for follow-up for HTN and recently diagnosed with meningioma The patient has been diagnosed with a meningioma and is currently undergoing infusion therapy with bevacizumab . He has undergone surgeries on May 24 and February 16, 2024, for the removal of the meningioma. The patient reports stable condition with no recent changes in medication, and he is under the care of Dr. Smith and Dr. Redd in [place]. He was advised to avoid meloxicam due to potential kidney effects and to use Tylenol for pain management instead. 01/09/25 Stopped Miloxicam [facility] Surgical History History of meningioma History of hernia surgery History of appendectomy Family History Mother Hyperthyroidism Depression Mental health disorder Father Hypercholesterolemia Depression Mental health disorder Social History Housing: House Alcohol intake: never Patient Tobacco Use Status: Never used Tobacco e-Cigarette/Vaping Use: Never Used Second Hand Smoke Exposure: No service: No Current occupational status: disabled Cognitive needs: No Hearing needs: No Vision needs: Yes Physical Exam Vital Signs: Last Vital Signs Pulse 69 01/09/25 10:13 BP 140/82 H 01/09/25 10:13 Pulse Ox 98 01/09/25 10:13 Oxygen Delivery Method Room Air 01/09/25 10:13 BMI result Body Mass Index 33.8 Const General: comfortable Nutritional Appearance: well nourished Orientation/consciousness: patient oriented x3 HEENT Head: No normal to inspection Mouth: moist mucous membranes Neck Neck: Yes supple and Yes no JVD Resp Auscultation: clear to auscultation bilaterally, no rales and rub present Cardio Jugular venous distension: no JVD Palpation: no palpable S3 and no palpable S4 Heart sounds: no rubs GI Palpation (GI): Soft to palpation and nontender Percussion: No Fluid wave present General: Yes no CVA tenderness Back/Spine/Pelvis Back: no CVA tenderness Skin General skin exam: no rashes or lesions noted Neuro General: patient oriented x3 Extrem General: Yes no pedal edema and No clubbing Results Reviewed Nephrology Results: Hgb, (14.0-18.0) 17.3 g/dl 11/06/24 WBC, (4.8-10.8) 7.5 X10*3/uL 11/06/24 Plt Count, (160-400) 211 X10*3/uL 11/06/24 Sodium, (135-145) 141 mmol/L 01/08/25 Potassium, (3.3-5.1) 4.2 mmol/L 01/08/25 Chloride, (96-108) 111 mmol/L H 01/08/25 Carbon Dioxide, (22-29) 22 mmol/L 01/08/25 BUN, (9-16) 16 mg/dL 01/08/25 Creatinine, (0.5-1.4) 1.20 mg/dL 01/08/25 Calcium, (8.4-10.2) 9.6 mg/dL 01/08/25 Urine Protein, (Neg-Trace) Negative mg/dL 09/30/23 Urine Creatinine 183.67 mg/dL 09/30/23 Assessment & Plan Assessment & Plan (1) HTN (hypertension): Code(s): I10 - Essential (primary) hypertension Category: Medical Plan 29 yr old man well-controlled hypertension. Mild bump in Cr to 1.4 from 1.0 ? Hypoperfusion Cr decreased to 1.2 after stopping Miloxicam and Increasing PO fluid intake Encouraged him to stay on low-sodium diet He will benefit from weight loss. We will continue to monitor renal panel along with urine protein creatinine ratio. All his questions were answered. No changes were made to the medications today. Orders: Orders Basic Metabolic Panel 1 Year I10 - Essential (primary) hypertension Creatinine Urine 1 Month I10 - Essential (primary) hypertension Total Protein Urine Random 1 Month I10 - Essential (primary) hypertension UA and rflx microscopic 1 Month I10 - Essential (primary) hypertension Coding Level of Care Code Est Pt Level 4 (85859) Diagnoses HTN (hypertension) I10
[2025-01-09 10:26] VITALS: BP 120/80
--- OUTSIDE RECORDS SUMMARY | 2025-01-09 10:47 | XMS_ITS | Clinical Summary ---
Author Organization [facility] Address [address] [facility] [address] [place] [address] Phone Care Team Providers Care Shredder Tender Name Role Phone Rebecca Collazo MD Primary Care Provider [phone] Allergies Active Allergy Reactions Criticality Noted Date [...] (06/16/2021): History of pauciarticular CAROLINE, DX in [place], Enbrel for 6 years,D/C'ed for development of [...] this topic Insurance MCR ([id number]) [place] [id number] MCR ([id number]) [place] [phone] Care Teams Shredder Tender Relationship Specialty Start Date End Date Rebecca Collazo MD [address] [phone] PCP - General 06/17/20
--- OUTSIDE RECORDS SUMMARY | 2025-01-09 10:47 | XMS_ITS | Clinical Summary ---
Author Organization 175 [facility] Address [address] [place] [address] Phone Care Team Providers Care Education Director Name Role Phone Rebecca Collazo MD Primary Care Provider [phone] Allergies No known active allergies Medications blood-glucose meter kit 1 Each by Does not apply route daily. 03/13/20 24 Active ONETOUCH ULTRASOFT LANCETS [facility] Use daily to check blood sugars. 03/13/20 [...] TABLET BY MOUTH ONCE DAILY 30 tablet 01/09/20 25 Active fenofibrate (LOFIBRA) 54 mg tablet TAKE 1 TABLET BY MOUTH ONCE DAILY 30 tablet 11/16/19 25 025 Discontinued fenofibrate (LOFIBRA) 54 mg tablet TAKE 1 TABLET BY MOUTH ONCE DAILY 30 tablet 12/16/19 25 025 Discontinued Active Problems Problem Noted [...] pressures remain consistently elevated at home. 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 Hyperlipidemia [...] Team Description 10/24/2024 Telephone Internal Medicine - [address] [place] [address] Rebecca Collazo MD [place]: Medication from Last 3 Months Immunizations Name Administration Dates Next Due Influenza Quadravalent, MDCK , 0.5ml, preservative free (Flucelvax) 6mo and older 03/08/2020,04/11/2019 Moderna SARS-CoV-2 COVID-19, mRNA, LNP-S, preservative free 10/30/2020 Surgical History Surgery Date Site/Laterality Comments APPENDECTOMY PROCEDURE: [place] APPENDECTOMY FOOT SURGERY PROCEDURE: [place] UNLISTED PROCEDURE FOOT/TOES HERNIA REPAIR PROCEDURE: HISTORICAL HERNIA REPAIR/ING Medical History Medical History Date Comments 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 Hypermelanosis DX:Hypermelanosi s; COMMENT: hypermelanosis of mitchel CAROLINE (juvenile idiopathic art hritis) (CMS/HCC V24, CMS/HCC V28) DX:CAROLINE (juvenile idiopathic arthritis) ([facility]) Vision disturbance DX:Vision dis turbance Alopecia DX:Alopecia [...] 10:00 AM EDT Office Visit Gastroenterology - [place] [address] [place] [address] Alyssia Dennis NP [address] [place] [address] Health Maintenance Due Date Last Done Comments DTaP,Tdap,and Td Vaccines (1 - Tdap) 2014 Hepatitis B Vaccines (1 of 3 - 19+ 3-dose series) 2014 HIV Screening 05/16/2022 Medicare Annual Wellness Visit 05/16/2022 Social Influencers of Health Screening 05/16/2022 COVID-19 Vaccine ( season) 2024 06/02/2021, 10/30/2020, 09/28/2020 Depression Screening [...] A2 Gastroesophageal reflux disease without esophagitis Meningioma (CMS/HCC V24, CMS/HCC V28) Mixed hyperlipidemia Essential hypertension Vitamin D deficiency Adult general medical examination HEPATITIS C SCREENING Routine 03/23/2019 from Last 3 Months or Most Recently Relevant to Health Maintenance Results * (ABNORMAL) Comprehensive metabolic panel (08/29/2024 7:48 AM EDT) Sodium 143 133 - 145 mmol/L LAB CHEMISTRY METHOD 08/29/2024 11:06 AM [facility] Potassium 4.1 3.5 - 5.5 mmol/L LAB CHEMISTRY METHOD 08/29/2024 11:06 AM [facility] Chloride 108 96 - 110 mmol/L LAB CHEMISTRY METHOD 08/29/2024 11:06 AM [facility] CO2 27 21 - 32 mmol/L LAB CHEMISTRY METHOD 08/29/2024 11:06 AM [facility] Anion Gap 8 3 - 11 LAB CHEMISTRY METHOD 08/29/2024 11:06 AM [facility] Glucose 87 70 - 100 mg/dL LAB CHEMISTRY METHOD 08/29/2024 11:06 AM [facility] BUN 14 5 - 25 mg/dL LAB CHEMISTRY METHOD 08/29/2024 11:06 AM [facility] Creatinine 1.16 0.70 - 1.30 mg/dL LAB CHEMISTRY METHOD 08/29/2024 11:06 AM [facility] eGFR 87 >=60 mL/min/1. 73m2 LAB CHEMISTRY METHOD 08/29/2024 11:06 AM [facility] Comment:Calculation based on the Chronic Kidney Disease Epidemiology Collaboration (CKD-EPI) equation refit without adjustment for race. BUN/Creatinine Ratio 12.1 LAB CHEMISTRY METHOD 08/29/2024 11:06 AM [facility] Calcium 9.6 8.5 - 10.5 mg/dL LAB CHEMISTRY METHOD 08/29/2024 11:06 AM [facility] AST (SGOT) 48(H) 10 - 42 unit/L LAB CHEMISTRY METHOD 08/29/2024 11:06 AM [facility] ALT (SGPT) 106(H) 10 - 60 unit/L LAB CHEMISTRY METHOD 08/29/2024 11:06 AM [facility] Alkaline Phosphatase 73 42 - 121 unit/L LAB CHEMISTRY METHOD 08/29/2024 11:06 AM [facility] Total Protein 6.9 6.0 - 8.0 g/dL LAB CHEMISTRY METHOD 08/29/2024 11:06 AM [facility] Albumin 4.3 3.2 - 5.0 g/dL LAB CHEMISTRY METHOD 08/29/2024 11:06 AM [facility] Total Bilirubin 0.4 0.0 - 1.4 mg/dL LAB CHEMISTRY METHOD 08/29/2024 11:06 AM [facility] Blood Venous blood specimen / Unknown Venipuncture / Unknown 08/29/2024 7:48 AM EDT 08/29/2024 10:16 AM EDT [place] LAB BLOOD ORDERABLES Final Resu lt [facility] [address] [place] [address], * (ABNORMAL) Lipid panel with reflex to direct LDL (08/09/2024 7:56 AM EST) Cholesterol 234(H) 0 - 200 mg/dL LAB CHEMISTRY METHOD 08/09/2024 9:07 AM [facility] Triglycerides 253(H) 0 - 150 mg/dL LAB CHEMISTRY METHOD 08/09/2024 9:07 AM [facility] HDL 52 >=40 mg/dL LAB CHEMISTRY METHOD 08/09/2024 9:07 AM [facility] LDL Calculated 131(H) 0 - 100 mg/dL LAB CHEMISTRY METHOD 08/09/2024 9:07 AM [facility] VLDL Cholesterol Robert 50.6 mg/dL LAB CHEMISTRY METHOD 08/09/2024 9:07 AM [facility] Non HDL Chol. (LDL+VLDL) 182(H) <145 mg/dL LAB CHEMISTRY METHOD 08/09/2024 9:07 AM [facility] Chol/HDL Ratio 4.5(H) 0.0 - 4.4 LAB CHEMISTRY METHOD 08/09/2024 9:07 AM [facility] Blood Venous blood specimen / Unknown Venipuncture / Unknown 08/09/2024 7:56 AM EST 08/09/2024 8:34 AM EST Rebecca Collazo MD LAB BLOOD ORDERABLES Final Res ult [facility] [address] [place] [address], * Hepatitis C Screening (03/23/2019) Hepatitis C Screening Abstracted us Historical Provider HEALTH MAINTENANCE Final Result from Last 3 Months or Most Recently Relevant to Health Maintenance Insurance [facility] MEDICARE Member Subscriber Plan / Payer (Ef fective 2018-Present) Name:KOFFI HERNÁNDEZ Relation to Subscriber:Self Name:Koffi Paez Payer ID:[id number] Group ID:[id number] Type:Not on file Address: [address] [place] [id number] Care Teams Education Director Relationship Specialty Start Date End Date Rebecca Collazo MD [address] [address] PCP - General Internal Medicine 02/24/22
== END 2025-01-09 10:31 | disposition home or self-care (01) ==
LOC: HO.HKA 10:13
PROVIDERS: PCP Internal Medicine; Visit Provider Internal Medicine Hypertension Specialist
DX: I10 Essential (primary) hypertension (principal)
CPT/HCPCS: 99214

== ENCOUNTER → 2025-01-09 10:12 | Outpatient (BNVA) | payer OTHER, SELFPAY | PROVIDERS: PCP Internal Medicine; Visit Provider Internal Medicine Hypertension Specialist | DX: I10 Essential (primary) hypertension (principal); Z98.890 Other specified postprocedural states | CPT/HCPCS: 99212 ==

== ENCOUNTER 2025-02-09 08:06 | Outpatient (AMB) | payer OTHER, SELFPAY ==
--- NOTE | 2025-02-09 08:16 | A.OFFVIS_ITS ---
Vital Signs 02/09/25 08:21 Height 5 ft 5 in Weight 202 lb BMI 33.6 Intake Visit Reasons: New Pt - Ingrowing Nail Intake Note: Koffi is a 29 year old male who presents today as a new patient for a evaluation of his ingrown toe nail of left great toe. Patient reports having pain in the toe when he touches the area with the ingrown. Patient mentions he has tried tylenol for the pain bt it provided no relief. Allergies No Known Allergies (No Known Allergies*) Allergy (Verified 02/09/25 08:22) HPI HPI New Pt - Ingrowing Nail: Details: 29-year-old male with past medical history of meningioma currently, receiving immunotherapy since May 2024, seen today for initial evaluation of left foot ingrown toenail. Patient states that he has had pain for the past 3 months and has noted increased swelling, redness, and tenderness. He admits to pain to touch. He is wearing open toed shoes to avoid pressure. He also notes difficulty with cutting his toenails due to thickening and adhering to his skin. Of note, patient has as last scheduled immunotherapy appointment next week Wednesday. [facility] Surgical History (Updated 02/09/25 @ 12:47 by Manoj Barbour DPM) History of meningioma History of hernia surgery History of appendectomy Family History Mother Hyperthyroidism Depression Mental health disorder Father Hypercholesterolemia Depression Mental health disorder Social History Housing: House Alcohol intake: never Patient Tobacco Use Status: Never used Tobacco e-Cigarette/Vaping Use: Never Used Second Hand Smoke Exposure: No service: No Current occupational status: disabled Cognitive needs: No Hearing needs: No Vision needs: Yes Review of Systems Const All systems reviewed & are unremarkable except as noted in HPI and below Skin/Breast Reports change in pigmentation, Reports erythema and Reports skin swelling Physical Exam Skin Other: *Bilateral Lower Extremity Focused Exam Vascular: DP/PT 2/4, CFT<3s to digits, TG warm to cool, mild edema to the left hallux. Derm: (+) erythema with out purulent drainage to the lateral border of the left hallux. Neuro: Protective sensation grossly intact to bilateral lower extremities. MSK: Mild tenderness on palpation of the lateral left hallux. Office Procedures AMB Debridement/Avulsion Podia Details: Procedure: Partial Nail Avulsion lateral border Indication: Left Hallux Ingrown toenail Anesthesia: Digital block with 8 cc 1 % lidocaine (without epinephrine) and 2 cc of 0.5% Marcaine plain. Description: The left hallux digit was prepped using betadine. A freer elevator was used to free the border of the nail plate. A nail splitter was used to cut approximately 10-15% of the nail. The offending nail was removed, and a curette was used to inspect for any loose spicules. The wound was irrigated with isopropyl alcohol. The wound was packed with bacitracin-gauze strip, 4x4 gauze, and coban. Tolerance: Patient tolerated procedure well, no immediate complications. 19214 Partial/Total nail avulsion (1 nail) (left hallux lateral nail border PNA) Procedure code (CPT) selection complete Office Meds lidocaine HCl 10 mg/mL (1 %) injection solution Performing Provider: Manoj Barbour DPM Performing Location: [facility] Administered by: Manoj Barbour DPM on 02/09/25 09:42 Dose Route Admin Location Dispensed Lot Number Expiration Date [facility] Primary Therapist 8 mL subcut 8 mL [id number] Total Dispensed Waste 8 mL 0 % bupivacaine (PF) 0.5 % (5 mg/mL) injection solution Performing Provider: Maonj Barbour DPM Performing Location: [facility] Administered by: Manoj Barbour DPM on 02/09/25 09:42 Dose Route Admin Location Dispensed Lot Number Expiration Date [facility] Primary Therapist 2 mL subcut 10 mL [id number] [employer] Total Dispensed Waste 10 mL 80 % Triple Antibiotic 3.5 mg-400 unit-5,000 unit topical ointment packet Performing Provider: Manoj Barbour DPM Performing Location: [facility] Administered by: Manoj Barbour DPM on 02/09/25 09:42 Dose Route Admin Location Dispensed Lot Number Expiration Date [facility] Primary Therapist 1 appl topical 1 appl [id number] P[place] povidone-iodine 10 % topical swab Performing Provider: Manoj Barbour DPM Performing Location: [facility] Administered by: Manoj Barbour DPM on 02/09/25 09:42 Dose Route Admin Location Dispensed Lot Number Expiration Date [facility] Primary Therapist 1 appl topical 1 appl [id number] [employer] [place]. ethyl chloride 100 % topical spray Performing Provider: Manoj Barbour DPM Performing Location: [facility] Administered by: Manoj Barbour DPM on 02/09/25 09:42 Dose Route Admin Location Dispensed Lot Number Expiration Date [facility] Primary Therapist 1 appl topical 1 mL [id number] Cynvec. Results Reviewed Results Reviewed: Reviewed CBC with differential lab results that the patient and his parents brought in. White blood cell less than 11, within normal limits. Platelets 165 K, within normal limits. Assessment & Plan Assessment & Plan (1) Paronychia of great toe, left: Comment: Lateral border left hallux Code(s): L03.032 - Cellulitis of left toe Category: Medical Plan: * Reviewed patient's lab results. * Recommended treating with oral antibiotics and monitoring left hallux infection. Explained that due to his immunotherapy, is a risk of complications to his toe with partial nail avulsion. * Patient elected partial nail avulsion treatment today due to persistent pain and infection. * Partial nail avulsion without chemical matricectomy was performed along the lateral nail border of the left hallux. Procedure note dictated separately. * The left toe was dressed with bacitracin ointment, 4 x 4 gauze, Band-Aid, and Coban. The patient was given dressing instructions to be performed at home over the next 7 days. * Follow-up in 1 week (2) Cellulitis of great toe of left foot: Code(s): L03.032 - Cellulitis of left toe Category: Medical Plan: * Rx Augmentin 875 mg b.i.d. x7 days (3) Meningioma: Code(s): D32.9 - Benign neoplasm of meninges, unspecified Category: Medical Plan: * Patient is on: bevacizumab and pembrolizumab immunotherapy. His last infusion is scheduled for next week Wednesday. * There is no direct enter action between the prescribed antibiotic and his medications. * Patient was recommended close monitoring of his left foot infection in the setting of his immunotherapy. He may require prolonged antibiotic treatment. Orders: Orders AMB Debridement/Avulsion Podiatry Today L60.0 - Ingrowing nail Medications: New amoxicillin 875 mg PO BID 14 tabs 1RF take twice daily for left foot infection Coding Level of Care Code New Pt Level 4 (09392) Diagnoses Paronychia of great toe, left L03.032 Cellulitis of great toe of left foot L03.032 Meningioma D32.9 CPT Codes Skin Debridement - CPT: 78879 Partial/Total nail avulsion (1 nail) ([id number]) Time Spent (min) 45 Comment Review labs, involved decision-making with electing PNA procedure today
[2025-02-09 08:21] VITALS: BMI 33.6
== END 2025-02-09 09:51 | disposition home or self-care (01) ==
LOC: HO.HPODS 08:07
PROVIDERS: PCP Internal Medicine; Visit Provider Student in an Organized Health Care Education/Training Program
DX: L03.032 Cellulitis of left toe (principal); D32.9 Benign neoplasm of meninges, unspecified; L60.0 Ingrowing nail
CPT/HCPCS: 11730; 99204

== ENCOUNTER → 2025-02-09 08:06 | Outpatient (BNVA) | payer OTHER, SELFPAY | PROVIDERS: PCP Internal Medicine; Visit Provider Student in an Organized Health Care Education/Training Program | DX: L60.0 Ingrowing nail (principal); L03.032 Cellulitis of left toe; D32.9 Benign neoplasm of meninges, unspecified | CPT/HCPCS: 11730; 99202; J0665; J2003 ==

== ENCOUNTER 2025-02-16 13:57 | Outpatient (AMB) | payer OTHER, SELFPAY ==
--- NOTE | 2025-02-16 14:13 | MHC.OFFVIS ---
Vital Signs 02/16/25 14:17 Height 5 ft 5 in Weight 202 lb BMI 33.6 Intake Visit Reasons: Follow Up-Ingrown toe nail Intake Note: Koffi is a 29 year old male who presents today for a follow up of his ingrown nail. He was seen in office on 02/09/25 and a partial nail avulsion was performed in office. Patient reports his toe is doing a lot better and is healing well and he has completed his course of antibiotics. He states he still has slight pain in his left great toe but he thinks his recovery is taking longer due to his infusion. [employer] Power[employer] Mechanic Required: Yes [employer]othermal Power[employer] Mechanic Services: Geothermal Powerplant Mechanic Present Ge[employer] Powerplant Mechanic Name: [id number] Allergies No Known Allergies (No Known Allergies*) Allergy (Verified 02/09/25 08:22) Medication List - Last Reconciled 02/16/25 by Manoj Barbour DPM alum-mag hydroxide-simeth 200-200-20 mg/5 mL ([place]) mL PO amoxicillin 875 mg PO BID bevacizumab-awwb (Mvasi) IV cholecalciferol (vitamin D3) (Vitamin D3) 50 mcg PO DAILY cyanocobalamin (vitamin B-12) 500 mcg PO DAILY fenofibrate 54 mg PO DAILY hydroxyzine HCl 10 mg PO BID Levoxyl (levothyroxine) 50 mcg PO DAILY 90 days NS lisinopril 5 mg PO DAILY meclizine 25 mg PO TID PRN pantoprazole 40 mg PO DAILY simvastatin 40 mg PO BEDTIME HPI HPI Follow Up-Ingrown toe nail: Details: 29-year-old male with active medical history of meningioma currently, receiving immunotherapy since May 2024, seen today for one-week follow up evaluation for partial nail avulsion without chemical matricectomy to the left hallux. Patient notes he is feeling much better, denies any pain, and has not seen any drainage from his toe. States he stopped dressing the toe and applying antibiotic ointment since this past Wednesday. He received infusion therapy for 1/2 of his immunotherapy at [facility] this past Wednesday, and was held off on the second medication in order to recover from his partial nail avulsion procedure. Patient was told by his oncology team that he will be on infusions for the next 3-6 months. Patient Patient denies N/V/F/C/SOB/CP. PFSH Surgical History (Updated 02/09/25 @ 12:47 by Manoj Barbour DPM) History of meningioma History of hernia surgery History of appendectomy Family History Mother Hyperthyroidism Depression Mental health disorder Father Hypercholesterolemia Depression Mental health disorder Social History Housing: House Alcohol intake: never Patient Tobacco Use Status: Never used Tobacco e-Cigarette/Vaping Use: Never Used Second Hand Smoke Exposure: No service: No Current occupational status: disabled Cognitive needs: No Hearing needs: No Vision needs: Yes Review of Systems Const All systems reviewed & are unremarkable except as noted in HPI and below Physical Exam Vital Signs: BMI result Body Mass Index 33.6 Extrem Other: *Bilateral Lower Extremity Focused Exam Vascular: DP/PT 2/4, CFT<3s to digits, TG warm to cool, no pedal edema. Derm: No erythema no drainage, no clinical signs of infection. Dry scab to the left hallux partial nail avulsion site. Neuro: Protective sensation grossly intact to bilateral lower extremities. MSK: Minimal tenderness on palpation of the base of the lateral left hallux. Assessment & Plan Assessment & Plan (1) Paronychia of great toe, left: Comment: Lateral border left hallux Code(s): L03.032 - Cellulitis of left toe Category: Medical Plan: Discontinue local wound care. Explained that if he requires any further invasive procedures or revision partial nail avulsions, we will have to communicate with his oncology team in advance. Follow-up in 1 week. We will plan for nail debridements and fungal nail evaluation/biopsy. (2) Cellulitis of great toe of left foot: Code(s): L03.032 - Cellulitis of left toe Category: Medical Plan: Discontinue antibiotics. Resolved. (3) Meningioma: Code(s): D32.9 - Benign neoplasm of meninges, unspecified Category: Medical Plan: Patient is on: bevacizumab and pembrolizumab immunotherapy. Patient states he will be on infusion therapy for 6 more months as per his oncology team. Patient was recommended close monitoring of his left foot infection in the setting of his immunotherapy. He may require prolonged antibiotic treatment. Coding Level of Care Code New Pt Level 2 (02867) Global (75600) Diagnoses Paronychia of great toe, left L03.032 Cellulitis of great toe of left foot L03.032 Meningioma D32.9 Time Spent (min) 15
[2025-02-16 14:17] VITALS: BMI 33.6
--- OUTSIDE RECORDS SUMMARY | 2025-02-16 16:54 | XMS_ITS | Clinical Summary ---
Author Organization [facility] Address [address] [facility] [address] [place] [address] Phone Care Team Providers Care Sample Grader Name Role Phone Rebecca Collazo MD Primary Care Provider [phone] Allergies Active Allergy Reactions Criticality Noted Date [...] (06/16/2021): History of pauciarticular CAROLINE, DX in [place], Enbrel for 6 years,D/C'ed for development of [...] this topic Insurance MCR ([id number]) [place] [id number] MCR ([id number]) [place] [id number] Care Teams Sample Grader Relationship Specialty Start Date End Date Rebecca Collazo MD [address] [address] PCP - General 06/17/20
--- OUTSIDE RECORDS SUMMARY | 2025-02-16 16:54 | XMS_ITS | Clinical Summary ---
Author Organization 175 [facility] Address 175 [place] [address] Phone Care Team Providers Care Yarn Inspector Name Role Phone Rebecca Collazo MD Primary Care Provider [phone] Allergies No known active allergies Medications blood-glucose meter kit 1 Each by Does not apply route daily. 03/13/20 24 Active ONETOUCH ULTRASOFT LANCETS MISC Use daily to check blood sugars. 03/13/20 24 Active hydrOXYzine HCL (ATARAX) 10 mg tablet Take 1 Tablet by mouth every 6 hours as needed for Itching. 03/13/20 24 Active p.glycol algin/polysorb ates ( CARE [employer]ODUCTS TOP) 3 Packages by Does not apply route continuous. 03/13/20 24 Active cyanocobalamin (VITAMIN B-12) 500 mcg tablet Take 1 Tablet by mouth daily for 360 days. 03/13/20 24 025 Active OneTouch Ultra Test test strip USE TO TEST 1 TIME DAILY 100 strip 1 10/10/19 25 Active simvastatin (ZOCOR) 40 mg tablet Take 1 tablet (40 mg total) by mouth at bedtime. 30 each 5 10/25/19 25 Active Antacid-Antiga s 200-200-20 mg/5 mL suspension TAKE 30ML BY MOUTH 4 TIMES DAILY BEFORE MEALS AND NIGHTLY 3600 mL 1 01/30/20 25 Active BEVACIZUMAB IV Infuse into a venous catheter. Q 21 days Active PEMBROLIZUMAB IV Infuse into a venous catheter. Q 21 days Active LevoxyL 50 mcg tablet Take 1 tablet (50 mcg total) by mouth 1 (one) time each day before breakfast. 01/16/20 25 Active lisinopriL (PRINIVIL,ZEST RIL) 5 mg tablet TAKE 1 TABLET BY MOUTH ONCE DAILY 30 tablet 02/08/20 25 Active cholecalcifero l (VITAMIN D-3) 50 mcg (2,000 unit) tablet TAKE 1 TABLET BY MOUTH ONCE DAILY 30 tablet 02/08/20 25 Active pantoprazole (PROTONIX) 40 mg EC tablet TAKE 1 TABLET BY MOUTH ONCE DAILY 30 tablet 02/08/20 25 Active fenofibrate (LOFIBRA) 54 mg tablet TAKE 1 TABLET BY MOUTH ONCE DAILY 30 tablet 02/07/20 25 Active meclizine (ANTIVERT) 25 mg tablet 09/12/19 25 Active lisinopriL (PRINIVIL,ZEST RIL) 5 mg tablet Take 1 Tablet by mouth daily. 03/13/20 24 025 Discontinued cholecalcifero l (VITAMIN D-3) 50 mcg (2,000 unit) tablet Take 1 Tablet by mouth daily. 03/13/20 24 025 Discontinued pantoprazole (PROTONIX) 40 mg EC tablet Take 1 Tablet by mouth daily. 03/13/20 24 025 Discontinued(Du plicate order) Eliquis 5 mg tablet 04/25/20 025 Discontinued tiZANidine (ZANAFLEX) 4 mg tablet Take 1 tablet (4 mg total) by mouth 1 (one) time each day if needed for muscle spasms. 30 tablet 1 05/05/20 24 025 Discontinued pantoprazole (PROTONIX) 40 mg EC tablet Take 1 tablet (40 mg total) by mouth 2 (two) times a day. Take on empty stomach, wait 30 mins and then eat to activate the medication before breakfast and supper 60 each 11 08/29/19 025 Discontinued aluminum-magne sium hydroxide-alma thicone (Antacid-Antig as) 200-200-20 mg/5 mL suspension Take 30 mL by mouth 4 (four) times a day (before meals and nightly). 3600 mL 1 12/06/19 25 025 Discontinued fenofibrate (LOFIBRA) 54 mg tablet TAKE 1 TABLET BY MOUTH ONCE DAILY 30 tablet 01/09/20 25 025 Discontinued Active Problems Problem Noted [...] Encounters Date Type Department Care Team Description 02/02/2025 10:00 AM EDT Office Visit Gastroenterology - [place] [address] [facility] [address] [place] [address] Alyssia Dennis NP Epigastric abdominal pain (Primary Dx); Gastroesophageal reflux disease, unspecified whether esophagitis present 02/02/2025 Telephone Gastroenterology [facility] [address] [facility] [address] [place] [address] Alyssia Dennis NP 01/29/2025 Telephone Gastroenterology [facility] 175 [facility] 175 [facility] [address] [place] [address] Alyssia Dennis NP from Last 3 Months Immunizations Name Administration Dates Next Due Influenza Quadravalent, MDCK , 0.5ml, preservative free (Flucelvax) 6mo and older 03/08/2020,04/11/2019 Moderna SARS-CoV-2 COVID-19, mRNA, LNP-S, preservative free 10/30/2020 Surgical History Surgery Date Site/Laterality Comments APPENDECTOMY PROCEDURE: [place] APPENDECTOMY FOOT SURGERY PROCEDURE: [place] UNLISTED PROCEDURE FOOT/TOES HERNIA REPAIR PROCEDURE: HISTORICAL HERNIA REPAIR/ING Medical History Medical History Date Comments 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 Hypermelanosis DX:Hypermelanosi s; COMMENT: hypermelanosis of mitchel CAROLINE (juvenile idiopathic art hritis) ([facility] V24, [facility] V28) DX:CAROLINE (juvenile idiopathic arthritis) ([facility]) Vision disturbance DX:Vision dis turbance Alopecia DX:Alopecia [...] Sign Reading Time Taken Comments Blood Pressure 138/88 02/02/2025 10:04 AM EDT Pulse 86 02/02/2025 10:04 AM EDT Temperature 36.4 C (97.5 F) 08/04/2024 2:32 PM EST Respiratory Rate - - Oxygen Saturation 96% 02/02/2025 10:04 AM EDT Inhaled Oxygen Concentration - - Weight 90.3 kg (199 lb) 02/02/2025 10:04 AM EDT Height 165.1 cm (5' 5 ) 02/02/2025 10:04 AM EDT Body Mass Index 33.12 02/02/2025 10:04 AM EDT Plan of Treatment Upcoming Encounters Date Type Department Care Team (Late st Contact Info) Description 02/23/2025 2:00 PM EDT Hospital Encounter [facility] Endoscopy [address] [place] [phone] Keenan De La Cruz MD [address] [address] Health Maintenance Due Date Last Done Comments DTaP,Tdap,and Td Vaccines (1 - Tdap) 2014 Hepatitis B Vaccines (1 of 3 - 19+ 3-dose series) 2014 HIV Screening 05/16/2022 Medicare Annual Wellness Visit 05/16/2022 Social Influencers of Health Screening 05/16/2022 Depression Screening 06/07/2024 COVID-19 Vaccine ( - season) 2025 06/02/2021, 10/30/2020, 09/28/2020 Influenza Vaccine (#1) 2025 , 03/08/2020, 04/11/2019 [...] mmol/L LAB CHEMISTRY METHOD 08/29/2024 11:06 AM [facility] Potassium 4.1 3.5 - 5.5 mmol/L LAB CHEMISTRY METHOD 08/29/2024 11:06 AM [facility] Chloride 108 96 - 110 mmol/L LAB CHEMISTRY METHOD 08/29/2024 11:06 AM [facility] CO2 27 21 - 32 mmol/L LAB CHEMISTRY METHOD 08/29/2024 11:06 AM [facility] Anion Gap 8 3 - 11 LAB CHEMISTRY METHOD 08/29/2024 11:06 AM [facility] Glucose 87 70 - 100 mg/dL LAB CHEMISTRY METHOD 08/29/2024 11:06 AM [facility] BUN 14 5 - 25 mg/dL LAB CHEMISTRY METHOD 08/29/2024 11:06 AM [facility] Creatinine 1.16 0.70 - 1.30 mg/dL LAB CHEMISTRY METHOD 08/29/2024 11:06 AM [facility] eGFR 87 >=60 mL/min/1. 73m2 LAB CHEMISTRY METHOD 08/29/2024 11:06 AM [facility] Comment:Calculation based on the Chronic Kidney Disease Epidemiology Collaboration (CKD-EPI) equation refit without adjustment for race. BUN/Creatinine Ratio 12.1 LAB CHEMISTRY METHOD 08/29/2024 11:06 AM [facility] Calcium 9.6 8.5 - 10.5 mg/dL LAB CHEMISTRY METHOD 08/29/2024 11:06 AM [facility] AST (SGOT) 48(H) 10 - 42 unit/L LAB CHEMISTRY METHOD 08/29/2024 11:06 AM [facility] ALT (SGPT) 106(H) 10 - 60 unit/L LAB CHEMISTRY METHOD 08/29/2024 11:06 AM [facility] Alkaline Phosphatase 73 42 - 121 unit/L LAB CHEMISTRY METHOD 08/29/2024 11:06 AM EDT [facility] Total Protein 6.9 6.0 - 8.0 g/dL LAB CHEMISTRY METHOD 08/29/2024 11:06 AM EDT [facility] Albumin 4.3 3.2 - 5.0 g/dL LAB CHEMISTRY METHOD 08/29/2024 11:06 AM EDT [facility] Total Bilirubin 0.4 0.0 - 1.4 mg/dL LAB CHEMISTRY METHOD 08/29/2024 11:06 AM EDT [facility] Blood Venous blood specimen / Unknown Venipuncture / Unknown 08/29/2024 7:48 AM EDT 08/29/2024 10:16 AM EDT us [facility] LAB BLOOD ORDERABLES Final Resu lt [facility] [address] [place] [address], * (ABNORMAL) Lipid panel with reflex to direct LDL (08/09/2024 7:56 AM EST) Cholesterol 234(H) 0 - 200 mg/dL LAB CHEMISTRY METHOD 08/09/2024 9:07 AM [facility] Triglycerides 253(H) 0 - 150 mg/dL LAB CHEMISTRY METHOD 08/09/2024 9:07 AM [facility] HDL 52 >=40 mg/dL LAB CHEMISTRY METHOD 08/09/2024 9:07 AM [facility] LDL Calculated 131(H) 0 - 100 mg/dL LAB CHEMISTRY METHOD 08/09/2024 9:07 AM [facility] VLDL Cholesterol Robert 50.6 mg/dL LAB CHEMISTRY METHOD 08/09/2024 9:07 AM [facility] Non HDL Chol. (LDL+VLDL) 182(H) <145 mg/dL LAB CHEMISTRY METHOD 08/09/2024 9:07 AM EST [facility] Chol/HDL Ratio 4.5(H) 0.0 - 4.4 LAB CHEMISTRY METHOD 08/09/2024 9:07 AM EST [facility] Blood Venous blood specimen / Unknown Venipuncture / Unknown 08/09/2024 7:56 AM EST 08/09/2024 8:34 AM EST Rebecca Collazo MD LAB BLOOD ORDERABLES Final Res ult [facility] [address] [place] [address], * Hepatitis C Screening (03/23/2019) [facility] Hepatitis C Screening Abstracted Historical Provider HEALTH MAINTENANCE Final Result from Last 3 Months or Most Recently Relevant to Health Maintenance Insurance [facility] MEDICARE Member Subscriber Plan / Payer (Ef fective 2018-Present) Name:KOFFI HERNÁNDEZ Relation to Subscriber:Self Name:Koffi Paez Payer ID:[id number] Group ID:[id number] Type:Not on file Address: [place] [facility] [place] [phone] Care Teams Yarn Inspector Relationship Specialty Start Date End Date Rebecca Collazo MD [address] [phone] PCP - General Internal Medicine 02/24/22
== END 2025-02-16 14:45 | disposition home or self-care (01) ==
LOC: HO.HPODS 13:57
PROVIDERS: PCP Internal Medicine; Visit Provider Student in an Organized Health Care Education/Training Program
DX: D32.9 Benign neoplasm of meninges, unspecified (principal); L03.032 Cellulitis of left toe
CPT/HCPCS: 99213

== ENCOUNTER → 2025-02-16 13:57 | Outpatient (BNVA) | payer OTHER, SELFPAY | PROVIDERS: PCP Internal Medicine; Visit Provider Student in an Organized Health Care Education/Training Program | DX: L03.032 Cellulitis of left toe (principal); D32.9 Benign neoplasm of meninges, unspecified | CPT/HCPCS: 99212 ==

== ENCOUNTER 2025-02-22 12:06 | Outpatient (AMB) | payer OTHER, SELFPAY ==
--- NOTE | 2025-02-22 12:37 | A.OFFVIS_ITS ---
Intake Visit Reasons: 1 week f/u Intake Note: Koffi is a 29 year old male who presents today as a follow up of his Cellulites oh his left great toe. Patient reports no pain in his toe and it is doing well. Allergies No Known Allergies (No Known Allergies*) Allergy (Verified 02/22/25 12:39) HPI HPI 1 week f/u: Details: 29-year-old male with active medical history of meningioma, receiving immunotherapy since May 2024, seen today for to-week follow up evaluation for partial nail avulsion without chemical matricectomy to the left hallux. Patient notes he is feeling much better, denies any pain, and has not seen any drainage from his toe. He is complaining of elongated thickened toenails that he is unable to cut and trim himself due to the pain and concerns for ingrown n ails to his other smaller toes. [facility] Surgical History (Updated 02/09/25 @ 12:47 by Manoj Barbour DPM) History of meningioma History of hernia surgery History of appendectomy Family History Mother Hyperthyroidism Depression Mental health disorder Father Hypercholesterolemia Depression Mental health disorder Social History Housing: House Alcohol intake: never Patient Tobacco Use Status: Never used Tobacco e-Cigarette/Vaping Use: Never Used Second Hand Smoke Exposure: No service: No Current occupational status: disabled Cognitive needs: No Hearing needs: No Vision needs: Yes Review of Systems Const All systems reviewed & are unremarkable except as noted in HPI and below Physical Exam Extrem Other: *Bilateral Lower Extremity Focused Exam Vascular: DP/PT 2/4, CFT<3s to digits, TG warm to cool, no pedal edema. Derm: No erythema no drainage, no clinical signs of infection. Lateral border left hallux with no remaining edema, no drainage, no erythema. No scab. Thickened discolored elongated toenails with subungual debris times 10 bilaterally. All nails are incurvated. Left 2nd and right hallux medial and lateral nail borders are ingrown. Left hallux medial border slightly ingrown. No erythema or clinical signs of infection. Neuro: Protective sensation grossly intact to bilateral lower extremities. MSK: Minimal tenderness on palpation of the base of the lateral left hallux. Office Procedures AMB Debridement/Avulsion Podia Details: All elongated, thickened, discolored toenails x 10 using a sterile nail nipper. The patient tolerated the procedure well with no complications. The nail specimens were sent for pathology and culture to evaluate for fungal elements. Class A findings as per physical exam findings above. The patient has a diagnosis of meningioma and presents with elongated, thickened toenails. He has multiple ingrown nails, 1 with recent infection that required multiple courses of antibiotic treatment and surgical excision. Due to underlying comorbidities, the patient is at increased risk for complications such as recurrent infection and difficulty with self-care. Debridement of elongated toenails is medically necessary to prevent development of pressure- related lesions, reduce risk of secondary infection, and maintain foot health in her high-risk comorbidities. 12329-[id number] of Nail 6+ Procedure code (CPT) selection complete Assessment & Plan Assessment & Plan (1) Tinea unguium: Code(s): B35.1 - Tinea unguium Category: Medical Plan: * Nail clipping sent for fungal biopsy of right/left hallux nail. * Discussed treatment options including topical treatment versus oral antifungal medications. * Explained that oral antifungals such as terbinafine (Lamisil) may cause gastrointestinal upset, headache, rash, taste disturbances, and hepatotoxicity. Baseline and monthly liver function monitoring is recommended during therapy. * Did not recommend oral treatment at this time due to his comorbidities. Recommend trialing topical treatment. The patient elected topical treatment. * Rx Ciclopirox (2) Paronychia of great toe, left: Comment: Lateral border left hallux Code(s): L03.032 - Cellulitis of left toe Category: Medical Plan: * Now resolved. * Discussed potential recurrence that could require partial nail avulsion and chemical matrixectomy. Recommended returning prior to infection occurring. (3) Meningioma: Code(s): D32.9 - Benign neoplasm of meninges, unspecified Category: Medical Plan: * All elongated, thickened, discolored toenails x 10 using a sterile nail nipper. The patient tolerated the procedure well with no complications. The nail specimens were sent for pathology and culture to evaluate for fungal elements. Class A findings as per physical exam findings above. The patient has a diagnosis of meningioma and presents with elongated, thickened toenails. He has multiple ingrown nails, 1 with recent infection that required multiple courses of antibiotic treatment and surgical excision. Due to underlying com orbidities, the patient is at increased risk for complications such as recurrent infection and difficulty with self-care. Debridement of elongated toenails is medically necessary to prevent development of pressure-related lesions, reduce risk of secondary infection, and maintain foot health in her high-risk comorbidities. Orders: Orders Surgical Today B35.1 - Tinea unguium Fungus Cult Hair/Skin/Nail Today B35.1 - Tinea unguium AMB Debridement/Avulsion Podiatry Today B35.1 - Tinea unguium Coding Level of Care Code Est Pt Level 3 (02883) Diagnoses Tinea unguium B35.1 Paronychia of great toe, left L03.032 Meningioma D32.9 CPT Codes Skin Debridement - CPT: 39161-Qwujnlqvkim of Nail 6+ ([id number]) Time Spent (min) 25
--- OUTSIDE RECORDS SUMMARY | 2025-02-22 14:21 | XMS_ITS | Clinical Summary ---
Author Organization [facility] Address [address] [facility] [address] [place] [address] Phone Care Team Providers Care Automatic Hemmer Name Role Phone Rebecca Collazo MD Primary Care Provider Allergies Active Allergy Reactions Criticality Noted Date [...] (06/16/2021): History of pauciarticular CAROLINE, DX in [place], Enbrel for 6 years,D/C'ed for development of [...] this topic Insurance MCR ([id number]) [place] [id number] MCR ([id number]) [place] [id number] Care Teams Automatic Hemmer Relationship Specialty Start Date End Date Rebecca Collazo MD [address] [address] PCP - General 06/17/20
--- OUTSIDE RECORDS SUMMARY | 2025-02-22 14:21 | XMS_ITS | Encounter Summary ---
Author Organization [facility] Address [address] [place] [address] Care Team Providers Care Senior Quality Engineer Name Role Phone Rebecca Collazo MD Primary Care Provider [phone] Reason for Visit * Reason Onset Date Comments special procedure 02/02/2025 Encounter Details Date Type Department Care Team ([facility] st Contact Info) Description 02/02/2025 Telephone Gastroenterology - [place] 175 [facility] 175 [facility] [address] [place] [phone] Alyssia Dennis, FELICIA 175 [facility] [address] [place] [address] Social History Tobacco Use Types Packs/Day Years [...] on file documented as of this encounter Progress Notes * Kalpana Thrasher - 02/21/2025 1:11 PM EDT PATIENT'S MOTHER WANTED SOMETHING EARLIER, MOVED UP TO 1030AM SAME DAY. * Jayna Bains - 02/21/2025 12:19 PM EDT Pts mom is calling to r/s pts procedure due to pt not feeling well. She does not want to cancel until she speaks with someone. Please call pts mom with an pianos and organs salesperson. * Raegan Meraz MA - 02/02/2025 1:07 PM EDT Scheduled. * Alyssia Dennis NP - 02/02/2025 12:15 PM EDT Please schedule diagnostic EGD for epigastric abdominal pain and GERD next available. Thank you. documented in this encounter Plan of Treatment Upcoming Encounters Date Type Department Care Team (Late st Contact Info) Description 02/23/2025 10:30 AM EDT Hospital Encounter [facility] Endoscopy [address] [place] [phone] Keenan De La Cruz MD 299 [facility] [address] [place] [address] Zulma Vela CRNA [address] [place] [address] Rut Ness MD [address] [place] [address] documented as of this encounter Visit Diagnoses Not on filedocumented in this encounter Care Teams Senior Quality Engineer Relationship Specialty Start Date End Date Rebecca Collazo MD 175 [facility] 200 [place] [phone] PCP - General Internal Medicine 02/24/22 documented as of this encounter
--- OUTSIDE RECORDS SUMMARY | 2025-02-22 14:21 | XMS_ITS | Clinical Summary ---
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 (04/27/2024): Hypermelanosis of Francisco Alopecia 08/19/2016 GERD (gastroesophageal reflux disease) 6 Encounters Date Type Department Care Team Description 02/02/2025 10:00 AM EDT Office Visit Gastroenterology - [place] [address] [facility] [address] [place] [address] Alyssia Dennis NP Epigastric abdominal pain (Primary Dx); Gastroesophageal reflux disease, unspecified whether esophagitis present 02/02/2025 Telephone Gastroenterology [facility] [address] 175 [facility] [address] [place] [address] Alyssia Dennis NP 01/29/2025 Telephone Gastroenterology [facility] 175 [facility] 175 [facility] [address] [place] [address] Alyssia Dennis NP from Last 3 Months Immunizations Name Administration Dates Next Due Influenza Quadravalent, MDCK , 0.5ml, preservative free (Flucelvax) 6mo and older 03/08/2020,04/11/2019 Moderna SARS-CoV-2 COVID-19, mRNA, LNP-S, preservative free 10/30/2020 Surgical History Surgery Date Site/Laterality Comments APPENDECTOMY PROCEDURE: CT APPENDECTOMY FOOT SURGERY PROCEDURE: CT UNLISTED PROCEDURE FOOT/TOES HERNIA REPAIR PROCEDURE: HISTORICAL HERNIA REPAIR/ING Medical History Medical History Date Comments 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 Endoscopy [address] [place] [phone] Keenan De La Cruz MD [address] [address] Zulma Vela CRNA [address] [place] [address] Rut Ness MD [address] [place] [phone] Health Maintenance Due Date Last Done Comments DTaP,Tdap,and Td Vaccines (1 - Tdap) 2014 Hepatitis B Vaccines (1 of 3 - 19+ 3-dose series) 2014 HIV Screening 05/16/2022 Medicare Annual Wellness Visit 05/16/2022 Social Influencers of Health Screening 05/16/2022 Depression Screening 06/07/2024 COVID-19 Vaccine ( season) 2025 06/02/2021, 10/30/2020, 09/28/2020 Influenza Vaccine [...] Vitamin D deficiency Adult general medical examination HM HEPATITIS C SCREENING Routine 03/23/2019 from Last [...] LAB CHEMISTRY METHOD 08/29/2024 11:06 AM EDT [facility] ALT (SGPT) 106(H) 10 - 60 unit/L LAB CHEMISTRY METHOD 08/29/2024 11:06 AM EDT [facility] Alkaline Phosphatase 73 42 - 121 unit/L LAB CHEMISTRY METHOD 08/29/2024 11:06 AM [facility] Total Protein 6.9 6.0 - 8.0 g/dL LAB CHEMISTRY METHOD 08/29/2024 11:06 AM T [facility] Albumin 4.3 3.2 - 5.0 g/dL LAB CHEMISTRY METHOD 08/29/2024 11:06 AM [facility] Total Bilirubin 0.4 0.0 - 1.4 mg/dL LAB CHEMISTRY METHOD 08/29/2024 11:06 AM [facility] Blood Venous blood specimen / Unknown Venipuncture / Unknown 08/29/2024 7:48 AM EDT 08/29/2024 10:16 AM EDT [facility] BLOOD ORDERABLES Final Resu lt [facility] [address] [place] [address], * (ABNORMAL) Lipid panel with reflex to direct LDL (08/09/2024 7:56 AM EST) Cholesterol 234(H) 0 - 200 mg/dL LAB CHEMISTRY METHOD 08/09/2024 9:07 AM EST [facility] Triglycerides 253(H) 0 - 150 mg/dL LAB CHEMISTRY METHOD 08/09/2024 9:07 AM EST [facility] HDL 52 >=40 mg/dL LAB CHEMISTRY METHOD 08/09/2024 9:07 AM [facility] LDL Calculated 131(H) 0 - 100 mg/dL LAB CHEMISTRY METHOD 08/09/2024 9:07 AM EST [facility] VLDL Cholesterol Robert 50.6 mg/dL LAB CHEMISTRY METHOD 08/09/2024 9:07 AM EST [facility] Non HDL Chol. (LDL+VLDL) 182(H) <145 mg/dL LAB CHEMISTRY METHOD 08/09/2024 9:07 AM EST [facility] Chol/HDL Ratio 4.5(H) 0.0 - 4.4 LAB CHEMISTRY METHOD 08/09/2024 9:07 AM EST [facility] Blood Venous blood specimen / Unknown Venipuncture / Unknown 08/09/2024 7:56 AM EST 08/09/2024 8:34 AM EST Rebecca Collazo MD LAB BLOOD ORDERABLES Final Res ult [facility] [address] [place] [address], * Hepatitis C Screening (03/23/2019) Hepatitis C Screening Abstracted Historical Provider HEALTH MAINTENANCE Final Result from Last 3 Months or Most Recently Relevant to Health Maintenance Insurance [facility] MEDICARE Member Subscriber Plan / Payer (Ef fective 2018-Present) Name:KOFFI HERNÁNDEZ Relation to Subscriber:Self Name:Koffi Paez Payer ID:[id number] Group ID:[id number] Type:Not on file Address: [place] [address] [place] [id number] Care Teams Stroke Program Coordinator Relationship Specialty Start Date End Date Rebecca Collazo MD [address] [place] [phone] PCP - General Internal Medicine 02/24/22
== END 2025-02-22 13:05 | disposition home or self-care (01) ==
LOC: HO.HPODS 12:07
PROVIDERS: PCP Internal Medicine; Visit Provider Student in an Organized Health Care Education/Training Program
DX: B35.1 Tinea unguium (principal); L03.032 Cellulitis of left toe; D32.9 Benign neoplasm of meninges, unspecified
CPT/HCPCS: 11721; 99213

== ENCOUNTER 2025-02-22 12:06 | Outpatient (REF) | payer OTHER, SELFPAY | END 2025-02-22 12:07 | disposition home or self-care (01) | LOC: HO.LNP 12:06 | PROVIDERS: PCP Internal Medicine; Visit Provider Student in an Organized Health Care Education/Training Program | DX: B35.1 Tinea unguium (principal); L03.032 Cellulitis of left toe; D32.9 Benign neoplasm of meninges, unspecified | CPT/HCPCS: 11721; 88304; 88312; 99212 ==

== ENCOUNTER 2025-02-22 13:07 | Outpatient (REF) | payer OTHER, SELFPAY | END 2025-02-22 13:08 | disposition home or self-care (01) | LOC: HO.LAB 13:07 | PROVIDERS: Visit Provider Student in an Organized Health Care Education/Training Program | DX: B35.1 Tinea unguium (principal); L03.032 Cellulitis of left toe; L60.2 Onychogryphosis | CPT/HCPCS: 11721; 87101; 87220 ==

== ENCOUNTER 2025-02-27 09:43 | Outpatient (AMB) | payer OTHER, SELFPAY ==
--- OUTSIDE RECORDS SUMMARY | 2025-02-23 09:16 | XMS_ITS | Encounter Summary ---
Author Organization [facility] Address [address] [place] [address] Care Team Providers Care Forensic Examiner Name Role Phone Stefani Pressley MD Primary Care Provider [phone] Reason for Referral * Hospital - Outpatient (Routine) - Closed Specialty Diagnoses / Procedures Referred By Jayde ramirez Referred To Contact Gastroenterology Diagnoses Epigastric abdominal pain Gastroesophageal reflux disease without esophagitis Procedures EGD Anesthesia - MAC; [facility] ENDOSCOPY Keenan De La Cruz MD [address] [place] [phone] Phone: tel: fax: [facility] [address] [place] [address] Phone: tel: Referral ID Status Reason Start Date Expiration Date Visits Re quested Visits Authorized [id number] Closed 02/02/2025 02/02/2026 1 1 Reason for Visit * Auth/Cert (Routine) Specialty Diagnoses / Procedures Referred By Jayde ramirez Referred To Contact Diagnoses Epigastric pain Gastro-esophageal reflux disease without esophagitis Procedures EGD SC EGD FLEXIBLE TRANSORAL DX INCL MARCO SPEC BY BRUSHING/WASHING [facility] [address] [place] [address] Phone: tel: Referral ID Status Reason Start Date Expiration Date Visits Re quested Visits Authorized [id number] 1 1 Encounter Details Date Type Department Care Team (Latest Contact Info) Description 02/23/2025 9:16 AM EDT - 02/23/2025 11:59 PM EDT Hospital Encounter [facility] [address] [place] [address] Keenan De La Cruz MD [address] [address] Zulma Vela CRNA [address] [place] [address] Klaus Amato MD [address] [place] [address] Epigastric abdominal pain; Gastroesophageal reflux disease without esophagitis Discharge Disposition: Home or Self Care Social History Tobacco Use Types Packs/Day Years Used Date Smoking Tobacco: Never Smokeless Tobacco: Never Alcohol Use Standard Drinks/Week Comments No 0 (1 standard drink = 0.6 oz pur e alcohol) Interpersonal Safety Answer Date Record ed Physical Abuse 02/23/2025 Verbal Abuse 02/23/2025 Sex and Gender Information Value Date Recorded Sex Assigned at Male 02/23/2025 9:14 AM EDT Legal Sex Male 10:26 AM EST Gender Identity Male 02/23/2025 9:14 AM EDT Sexual Orientation Straight 02/23/2025 9: 14 AM EDT documented as of this encounter Last Filed Vital Signs Vital Sign Reading Time Taken Comments Blood Pressure 134/85 02/23/2025 10:57 AM EDT Pulse 88 02/23/2025 10:57 AM EDT Temperature 36 C (96.8 F) 02/23/2025 9:42 AM EDT Respiratory Rate 23 02/23/2025 10:57 AM EDT Oxygen Saturation 98% 02/23/2025 10:57 AM EDT Inhaled Oxygen Concentration - - Weight - - Height - - Body Mass Index - - documented in this encounter Discharge Instructions * Attachments The following attachments cannot be sent through Care Everywhere. * EGD (Upper Endoscopy): Post op (Thai) documented in this encounter Medications at Time of Discharge Antacid-Antigas 200-200-20 mg/5 mL suspension TAKE 30ML BY MOUTH 4 TIMES DAILY BEFORE MEALS AND NIGHTLY 3600 mL 1 01/29/2025 BEVACIZUMAB IV Infuse into a venous catheter. Q 21 days blood-glucose meter kit 1 Each by Does not apply route daily. 03/13/2024 cyanocobalamin (VITAMIN B-12) 500 mcg tablet Take 1 Tablet by mouth daily for 360 days. 03/13/2024 03/08/2025 hydrOXYzine HCL (ATARAX) 10 mg tablet Take 1 Tablet by mouth every 6 hours as needed for Itching. 03/13/2024 LevoxyL 50 mcg tablet Take 1 tablet (50 mcg total) by mouth 1 (one) time each day before breakfast. 01/15/2025 OneTouch Ultra Test test strip USE TO TEST 1 TIME DAILY 100 strip 1 10/09/2024 ONETOUCH ULTRASOFT LANCETS MISC Use daily to check blood sugars. 03/13/2024 p.glycol algin/polysorbat es ([employer] TOP) 3 Packages by Does not apply route continuous. 03/13/2024 PEMBROLIZUMAB IV Infuse into a venous catheter. Q 21 days simvastatin (ZOCOR) 40 mg tablet Take 1 tablet (40 mg total) by mouth at bedtime. 30 each 5 10/24/2024 cholecalciferol (VITAMIN D-3) 50 mcg (2,000 unit) tablet TAKE 1 TABLET BY MOUTH ONCE DAILY 30 tablet 02/07/2025 fenofibrate (LOFIBRA) 54 mg tablet TAKE 1 TABLET BY MOUTH ONCE DAILY 30 tablet 02/06/2025 lisinopriL (PRINIVIL,ZESTRI L) 5 mg tablet TAKE 1 TABLET BY MOUTH ONCE DAILY 30 tablet 02/07/2025 meclizine (ANTIVERT) 25 mg tablet 09/11/2024 pantoprazole (PROTONIX) 40 mg EC tablet TAKE 1 TABLET BY MOUTH ONCE DAILY 30 tablet 02/07/2025 documented as of this encounter Discharge Disposition Disposition Code Departure Means Destination Home or Self Care documented in this encounter Progress Notes * Dylan Ray RN - 02/23/2025 10:30 AM EDT PATIENT TOLERATED A DRINK AND A SNACK. MD DISCUSSED RESULT WITH PATIENT. FALL RISK REVIEWED. ALL PERSONAL EFFECTS RETURNED TO PATIENT. Problem: Cognitive:Periop Procedure - Minor Goal: Knowledge of disease or condition will improve Outcome: Adequate for Discharge * Essie Miles RN - 02/23/2025 9:37 AM EDT Problem: Cognitive:Periop Procedure - Minor Goal: Knowledge of disease or condition will improve Outcome: Progressing Problem: Sensory:Periop Procedure - Minor Goal: Demonstrates/reports adequate pain control Outcome: Progressing PT VERBALIZED UNDERSTAND OF DC INSTRUCTIONS, FALL RISK REVIEWED, CALL LI AT BEDSIDE. 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 GERD (gastroesophageal reflux disease) 02/07/2016 DX:GERD (gastroesophageal reflux disease) Hyperlipidemia 02/03/2018 DX:Hyperlipidemia Hypermelanosis DX:Hypermelanosis; COMMENT: hypermelanosis of [place]chel Hypertension CAROLINE (juvenile idiopathic arthritis) ([facility] V24, [facility] V28) DX:CAROLINE (juvenile idiopathic arthritis) ([facility]) NSAID long-term use 06/14/2017 DX:NSAID long-term use On etanercept therapy 06/14/2017 DX:On etanercept therapy Vision disturbance DX:Vision disturbance Past Surgical History: Procedure Laterality Date APPENDECTOMY PROCEDURE: SC APPENDECTOMY FOOT SURGERY PROCEDURE: SC UNLISTED PROCEDURE FOOT/TOES HERNIA REPAIR PROCEDURE: HISTORICAL HERNIA REPAIR/ING Medications/Allergies: Prior to Admission medications Medication Sig Start Date End Date Taking? Authorizing Provider Antacid-Antigas 200-200-20 mg/5 mL suspension TAKE 30ML BY MOUTH 4 TIMES DAILY BEFORE MEALS AND NIGHTLY 01/29/25 Yes Alyssia Dennis NP BEVACIZUMAB IV Infuse into a venous catheter. Q 21 days Yes Historical Provider, fenofibrate (LOFIBRA) 54 mg tablet TAKE 1 TABLET BY MOUTH ONCE DAILY 02/06/25 Yes Rebecca Collazo MD hydrOXYzine HCL (ATARAX) 10 mg tablet Take 1 Tablet by mouth every 6 hours as needed for Itching. 03/13/24 Yes Historical Provider, LevoxyL 50 mcg tablet Take 1 tablet (50 mcg total) by mouth 1 (one) time each day before breakfast.01/15/25 Yes Historical Provider, lisinopriL (PRINIVIL,ZESTRIL) 5 mg tablet TAKE 1 TABLET BY MOUTH ONCE DAILY 02/07/25 Yes Rebecca Collazo MD meclizine (ANTIVERT) 25 mg tablet 09/11/24 Yes Historical Provider, pantoprazole (PROTONIX) 40 mg EC tablet TAKE 1 TABLET BY MOUTH ONCE DAILY 02/07/25 Yes Rebecca Collazo MD PEMBROLIZUMAB IV Infuse into a venous catheter. Q 21 days Yes Historical Provider, simvastatin (ZOCOR) 40 mg tablet Take 1 tablet (40 mg total) by mouth at bedtime. 10/24/24 Yes Rebecca Ortez MD blood-glucose meter kit 1 Each by Does not apply route daily. 03/13/24 Historical ProviderMD cholecalciferol (VITAMIN D-3) 50 mcg (2,000 unit) tablet TAKE 1 TABLET BY MOUTH ONCE DAILY 02/07/25 Rebecca Collazo MD cyanocobalamin (VITAMIN B-12) 500 mcg tablet Take 1 Tablet by mouth daily for 360 days. 03/13/24 03/08/25 Historical Provider, OneTouch Ultra Test test strip USE TO TEST 1 TIME DAILY 10/09/24 MD YING BrowneUCH ULTRASOFT LANCETS [facility] [place] [place] Use daily to check blood sugars. 03/13/24 Historical Provider, p.glycol algin/polysorbates ([employer] TOP) 3 Packages by Does not apply route continuous. 03/13/24 Historical ProviderMD Patient Age:29 y.o. Vitals: Vitals: 02/23/25 0942 BP: (!) 146/108 Pulse: 86 Resp: 22 Temp: 36 ??C (96.8 ??F) SpO2: 98% Physical Exam: Mental Status: Clear HEENT: WNL Heart: WNL Lungs: WNL Abdomen: WNL Extremities: WNL Neuro: WNL Diagnosis/Plan: GERD and epigastric pain Plan for gastroscopy Board Certified Gastroenterology [facility] [phone] [address] [email or web address] Keenan De La Cruz MD 10:17 AM EDT documented in this encounter Procedure Notes * Dylan Ray RN - 02/23/2025 10:30 AM EDT PATIENT TOLERATED A DRINK AND A SNACK. MD DISCUSSED RESULT WITH PATIENT. FALL RISK REVIEWED. ALL PERSONAL EFFECTS RETURNED TO PATIENT. documented in this encounter Plan of Treatment Not on file documented as of this encounter Procedures Procedure Name Priority Date/Time Associated Diagnosis Comments EGD Routine 02/23/2025 10:36 AM EDT Epigastric abdominal pain Gastroesophageal reflux disease without esophagitis TISSUE EXAM Routine 02/23/2025 10:31 AM EDT Epigastric abdominal pain Gastroesophageal reflux disease without esophagitis documented in this encounter Results * EGD Anesthesia - MAC; [facility] END[facility] (02/23/2025 10:36 AM EDT) Anatomical Region Laterality Modality Other 02/23/2025 10:1 6 AM EDT Impressions 02/23/2025 10:37 AM EDT - Z-line regular, 40 cm from the incisors. - Normal esophagus. - Normal stomach. - Normal examined duodenum. Biopsied. - Several biopsies were obtained in the gastric antrum. Recommendation: - Discharge patient to home. - Resume previous diet. - Continue present medications. - Await pathology results. - Return to GI clinic as previously scheduled. Narrative 02/23/2025 10:[address] [facility] Patient Name: Koffi Moscoso Procedure Date: 02/23/2025 10:16 AM Date of : 1995 Age: 29 Room: ROOM 14 Gender: Male Note Status: Finalized Attending MD: Keenan De La Cruz MD, Procedure Date No Time: 02/23/2025 Procedure: Upper GI endoscopy Indications: Epigastric abdominal pain, Heartburn, Gastro-esophageal reflux disease Providers: Keenan De La Cruz MD Referring MD: Keenan De La Cruz MD Medicines: Monitored Anesthesia Care Complications: No immediate complications. Estimated Blood Loss: Estimated blood loss: none. Procedure: Pre-Anesthesia Assessment: - ASA Grade Assessment: III - A patient with severe systemic disease. - After reviewing the risks and benefits, the patient was deemed in satisfactory condition to undergo the procedure. After obtaining informed consent, the endoscope was passed under direct vision. Throughout the procedure, the patient's blood pressure, pulse, and oxygen saturations were monitored continuously.The Endoscope was introduced through the mouth, and advanced to the third part of duodenum. The upper GI endoscopy was accomplished without difficulty. The patient tolerated the procedure well. Findings: The Z-line was regular and was found 40 cm from the incisors. The esophagus was normal. The entire examined stomach was normal. Several biopsies were obtained in the gastric antrum with cold forceps for histology. Estimated blood loss was minimal. The examined duodenum was normal. Biopsies were taken with a cold forceps for histology. Estimated blood loss was minimal. Procedure Code(s): --- Professional --- 09911, Esophagogastroduodenoscopy, flexible, transoral; with biopsy, single or multiple Diagnosis Code(s): --- Professional --- R12, Heartburn R10.13, Epigastric pain K21.9, Gastro-esophageal reflux disease without esophagitis CPT copyright 2020 [employer]. All rights reserved. The codes documented in this report are preliminary and upon preservationist review may be revised to meet current compliance requirements. Keenan De La Cruz MD 02/23/2025 10:37:09 AM This report has been signed electronically.Keenan De La Cruz MD Number of Addenda: 0 Note Initiated On: 02/23/2025 10:16 AM Scope In: Scope Out: Endoscopy Department at [facility] - [address] [place] [id number] Procedure Note Keenan De La Cruz MD - 02/23/2025 [facility] Patient Name: Koffi Moscoso Procedure Date: 02/23/2025 10:16 AM Date of : 1995 Age: 29 Room: ROOM 14 Gender: Male Note Status: Finalized Attending MD: Keenan De La Cruz MD, Procedure Date No Time: 02/23/2025 Procedure: Upper GI endoscopy Indications: Epigastric abdominal pain, Heartburn, Gastro-esophageal reflux disease Providers: Keenan De La Cruz MD Referring MD: Keenan De La Cruz MD Medicines: Monitored Anesthesia Care Complications: No immediate complications. Estimated Blood Loss: Estimated blood loss: none. Procedure: Pre-Anesthesia Assessment: - ASA Grade Assessment: III - A patient with severe systemic disease. - After reviewing the risks and benefits, thepatient was deemed in satisfactory condition to undergo the procedure. After obtaining informed consent, the endoscope was passed under direct vision. Throughout theprocedure, the patient's blood pressure, pulse, and oxygen saturations were monitored continuously.TheEndoscope was introduced through the mouth, and advanced tothe third part of duodenum. The upper GI endoscopy was accomplished without difficulty. The patienttolerated the procedure well. Findings: The Z-line was regular and was found 40 cm from the incisors. The esophagus was normal. The entire examined stomach was normal. Several biopsies were obtained in the gastric antrum withcold forceps for histology. Estimated blood loss was minimal. The examined duodenum was normal. Biopsies weretaken with a cold forceps for histology. Estimated blood loss was minimal. Procedure Code(s): --- Professional --- 31207, Esophagogastroduodenoscopy, flexible, transoral; with biopsy, single or multiple Diagnosis Code(s): --- Professional --- R12, Heartburn R10.13, Epigastric pain K21.9, Gastro-esophageal reflux disease without esophagitis CPT copyright 2020 [employer]. All rights reserved. The codes documented in this report are preliminary and upon preservationist reviewmay be revised to meet current compliance requirements. Keenan De La Cruz MD 02/23/2025 10:37:09 AM This report has been signed electronically.Keenan De La Cruz MD Number of Addenda: 0 Note Initiated On: 02/23/2025 10:16 AM Scope In: Scope Out: Endoscopy Department at [facility] - [address] [place] [phone] IMPRESSION: - Z-line regular, 40 cm from the incisors. - Normal esophagus. - Normal stomach. - Normal examined duodenum. Biopsied. - Several biopsies were obtained in the gastricantrum. Recommendation: - Discharge patient to home. - Resume previous diet. - Continue present medications. - Await pathology results. - Return to GI clinic as previously scheduled. us Keenan De La Cruz MD GI~PROCEDURE ORDERABLES Final Result * Tissue exam (02/23/2025 10:31 AM EDT) Final Diagnosis A. Duodenum, biopsies: Benign duodenal mucosa with no specific pathologic change. No villous blunting or increased intraepithelial lymphocytes identified. B. Gastric, Antrum, biopsies: Gastric mucosa with mild chronic inactive gastritis. No Helicobacter type gastritis or reactive changes identified. 02/26/2025 10:[address] [facility] Gross Description A. Small Intestine, Duodenum, biopsies: Labeled duodenum biopsy . Received in formalin are six irregular dowling mucosal tissue fragments, ranging from less than 0.1 cm to 0.3 cm in greatest dimension, which are wrapped in paper and submitted in toto in one cassette, six pieces, multiple levels on one slide. B. Gastric, Antrum, biopsies: Labeled gastric biopsy . Received in formalin are three irregular dowling mucosal tissue fragments, ranging from 0.1 cm to 0.4 cm in greatest dimension, which are wrapped in paper and submitted in toto in one cassette, three pieces, multiple levels on one slide. [place] 02/26/2025 10:[address] [facility] Disclaimer Unless otherwise specified, all tissue is 10% NB formalin fixed and paraffin embedded. 02/26/2025 10:[address] [facility] Tissue Duodenal structure / Unknown 02/23/2025 10:31 AM EDT 02/23/2025 12:36 PM EDT Tissue specimen (specimen) Pyloric antrum structure / Unknown 02/23/2025 10:32 AM EDT 02/23/2025 12:36 PM EDT us Keenan De La Cruz MD LAB PATHOLOGY ORDERABLES Tita bazan Result [facility] ([facility]) [facility] [address] [place] [address], [place] [phone] documented in this encounter Visit Diagnoses Diagnosis Epigastric abdominal pain Abdominal pain, epigastric Gastroesophageal reflux disease without esophagitis Esophageal reflux documented in this encounter Historical Medications * This list may reflect changes made after this encounter. Medication Sig Dispense Quantity Refills Last Filled Start D ate End Date meclizine (ANTIVERT) 25 mg tablet 09/11/2024 added in this encounter Orders Discharge Count Last Ordered Date First Orde red Date DISCHARGE PATIENT 1 02/23/2025 documented in this encounter Care Teams Forensic Examiner Relationship Specialty Start Date End Date Stefani Pressley MD 2 [facility] [address] Physician Associ D/B/A: [facility] [place] PCP - General Internal Medicine 02/23/25 documented as of this encounter
--- OUTSIDE RECORDS SUMMARY | 2025-02-23 10:27 | XMS_ITS | Encounter Summary ---
Author Organization [facility] Address [address] [place] [address] Care Team Providers Care Undercover Operator Name Role Phone Stefani Pressley MD Primary Care Provider [phone] Reason for Visit * Auth/Cert (Routine) Specialty Diagnoses / Procedures Referred By Contac t Referred To Contact Diagnoses Epigastric pain Gastro-esophageal reflux disease without esophagitis Procedures EGD WA EGD FLEXIBLE TRANSORAL DX INCL MARCO SPEC BY BRUSHING/WASHING [facility] [address] [place] [address] Phone: tel: Referral ID Status Reason Start Date Expiration Date Visits Re quested Visits Authorized [id number] 1 1 Encounter Details Date Type Department Care Team (Late st Contact Info) Description 02/23/2025 10:27 AM EDT Anesthesia Event [facility] Endoscopy [address] [place] [address] Rut Ness MD [address] [place] [address] [phone] Zulma Vela CRNA [address] [place] [id number] Anesthesia Record Procedure Summary Procedure Name Responsible Anesthesiologist Anesthesia Start Time Anesthesia Stop Time EGD Rut Ness MD 02/23/25 1027 02/23/25 104 0 Events Date Time Event Comment 02/23/2025 0959 1026 In Room 1027 An Start 1027 An Start Data The patient wa s reevaluated immediately before moderate or deep sedation use and before anesthesia induction. 1027 Anesthesia Ready 1035 an stop data 1036 Out of Room 1040 Handoff to RN I completed my handoff to the receiving nurse during which we: 1. Identified the patient 2. Identified the responsible provider 3. Reviewed the pertinent medical history 4. Discussed the surgical course 5. Reviewed intra-op anesthesia management and issues during anesthesia 6. Set expectations for post-procedure period 7. Allowed opportunity for questions and acknowledgement of understanding. 1040 An Stop Meds Name Total propofol (DIPRIVAN) injection 10 mg/mL 1 50 mg lidocaine PF (XYLOCAINE-MPF) local injec tion 2% 40 mg benzocaine (HURRICAINE) mucosal spray 20 % (spray can) 1 spray lactated Ringer's infusion 150 mL * Agents No agents on file. * Blood No blood administrations on file. Lines, Drains, and Airways Type Details Placement Removal Peripheral IV Placement Date: 02/05 03/01; Placement Time: 0943; Catheter Size: 20 G; Orientation: Posterior, Right; Location: Hand; Site Prep: Chlorhexidine; Insertion Attempts: 1; Patient Tolerance: Tolerated well; Removal Date: 02/23/25; Removal Time: 1050 02/23/25 0943 by Essie Miles RN 02/23/25 1050 by Dylan Ray RN documented in this encounter Social History Tobacco Use Types Packs/Day Years [...] AM EDT documented as of this encounter Progress Notes * Zulma Vela CRNA - 02/23/2025 10:35 AM EDT Patient: Koffi Moscoso Procedure Summary Date: 02/23/25 Room / Location: [facility] Endoscopy Anesthesia Start: 7 Anesthesia Stop: Procedure: EGD Diagnosis: Epigastric abdominal pain Gastroesophageal reflux disease without esophagitis Scheduled Providers: Keenan De La Cruz MD; Zulma Vela CRNA; Rut Ness MD Responsible Provider: Rut Ness MD Anesthesia Type: MAC ASA Status: 3 Anesthesia Plan: MAC Last Vitals: Vitals Value Taken Time BP 122/81 02/23/25 1035 Temp 97 02/23/25 1035 Pulse 70 02/23/25 1035 Resp 14 02/23/25 1035 SpO2 99 02/23/25 1035 No data recorded Anesthesia Post Evaluation Patient location during evaluation: PACU Patient participation: complete - patient participated Level of consciousness: sleepy but conscious Pain score: 0 Pain management: adequate Airway patency: patent Anesthetic complications: no Cardiovascular status: acceptable Respiratory status: nonlabored ventilation and room air Hydration status: acceptable Nausea: No Vomiting: No No notable events documented. * Rut Ness MD - 02/23/2025 9:58 AM EDT Relevant Problems Cardio (+) Essential hypertension (+) Thrombosis cerebral vein Neuro/Psych H/O meningioma GI (+) GERD (gastroesophageal reflux disease) Other (+) Arthritis (+) Meningioma (CMS/HCC V24, CMS/[facility] V28) Clinical information reviewed: Tobacco Allergies Meds Med Hx Surg Hx Fam Hx Soc Hx Anesthesia Plan ASA 3 Anesthesia Plan: MAC Anesthesia Considerations MAC Plan Factors Patient is not a current smoker Smoking cessation education has not been provided Induction method: intravenous Anesthetic plan and risks discussed with patient. Anesthesia Plan discussed with SOCIAL MEDIA SENIOR ASSOCIATE. Anesthesia Evaluation Airway Mallampati: II Thyromental distance: >3 FB Neck ROM: fullnot intubatedno noted risk Dental Pulmonary breath sounds clear to auscultation Cardiovascular Rhythm: regular Rate: normal Neuro/Psych Mental Status: alert and oriented GI/Hepatic/Renal Endo/Other Abdominal Abdomen: soft. Bowel sounds: normal. PONV RISK SCORE: 1 Vitals: 02/23/25 0942 BP: (!) 146/108 Pulse: 86 Resp: 22 Temp: 36 ??C (96.8 ??F) TempSrc: Skin SpO2: 98% SpO2 Readings from Last 1 Encounters: 02/23/25 98% WBC Date Value Ref Range Status 08/29/2024 7.5 4.8 - 10.8 K/mcL Final RBC Date Value Ref Range Status 08/29/2024 5.60 (H) 4.50 - 5.50 M/mcL Final Hemoglobin Date Value Ref Range Status 08/29/2024 16.2 13.5 - 17.5 g/dL Final Hematocrit Date Value Ref Range Status 08/29/2024 48.5 42.0 - 54.0 % Final Platelets Date Value Ref Range Status 08/29/2024 195 130 - 400 K/mcL Final MCV Date Value Ref Range Status 08/29/2024 87.4 79.0 - 98.0 FL Final No Known Allergies STOP BANG: No data recorded NPO Status: Time of Last Liquid: 2099 Time of Last Solid: 2099 documented in this encounter Plan of Treatment Not on file documented as of this encounter Visit Diagnoses Not on filedocumented in this encounter Administered Medications Inactive Administered Medications - up to 3 most recent administrations Medication Order MAR Action Action Date Dose Rate Site benzocaine (HURRICAINE) 20 % mucosal spray Mouth/Throat, As needed, Starting on Wed02/23/25 at 1026, Anesthesia Intraprocedure Given 02/23/2025 10:26 AM EDT 1 spray lactated Ringer's infusion intravenous, Continuous PRN, Starting on Wed02/23/25 at 1000, Anesthesia Intraprocedure Restarted 02/23/2025 10:34 AM EDT New Bag 02/23/2025 10:00 AM EDT 75 mL/hr lidocaine (PF) (XYLOCAINE-MPF) 2 % injection injection, As needed, Starting on Wed02/23/25 at 1029, Anesthesia Intraprocedure Given 02/23/2025 10:29 AM EDT 40 mg propofoL (DIPRIVAN) injection intravenous, As needed, Starting on Wed02/23/25 at 1029, Anesthesia Intraprocedure Given 02/23/2025 10:32 AM EDT 50 mg Given 02/23/2025 10:29 AM EDT 100 mg documented in this encounter Care Teams Undercover Operator Relationship Specialty Start Date End Date Stefani Pressley MD [address] [place] [address] , [address] [place] [address] Physician Associ D/B/A: [facility] MANDA Dahl PCP - General Internal Medicine 02/23/25 documented as of this encounter
[2025-02-27 09:45] VITALS: BP 124/80; PULSE 74; O2SAT 96; BMI 32.3
--- NOTE | 2025-02-27 09:45 | A.OFFVIS_ITS ---
Vital Signs 3 02/27/25 09:45 Height 5 ft 5 in Weight 194 lb 0.108 oz BMI 32.3 BP 124/80 Blood Pressure Location Rt brachial Position Sitting Pulse 74 Pulse Source Pulse Oximeter Pulse Oximetry (%) 96 Oxygen Delivery Method Room Air Intake Visit Reasons: Disorder of thyroid, unspecified Intake Note: NEW Patient presents here today to establish treatment for Disorder of thyroid, unspecified: L Account Services Specialist Required: Yes Account Services Specialist Language: [employer] Department Head Services: Account Services Specialist Offered & Declined (DR. Lyon Speak Fluent Korean) Accompanied by: Mother Allergies No Known Allergies (No Known Allergies*) Allergy (Verified 02/27/25 09:48) Medication List - Last Reconciled 02/27/25 by Yeset Sonali Rodriguez MD alum-mag hydroxide-simeth 200-200-20 mg/5 mL (Rocío-Lanta) mL PO bevacizumab-awwb (Mvasi) IV cholecalciferol (vitamin D3) (Vitamin D3) 50 mcg PO DAILY ciclopirox 0.77% 1 appl topical BID 6 months cyanocobalamin (vitamin B-12) 500 mcg PO DAILY disposable gloves As directed fenofibrate 54 mg PO DAILY hydroxyzine HCl 10 mg PO BID Levoxyl (levothyroxine) 50 mcg PO DAILY 90 days NS lisinopril 5 mg PO DAILY meclizine 25 mg PO TID PRN pantoprazole 40 mg PO DAILY simvastatin 40 mg PO BEDTIME [wash cloth As directed] HPI Comments Details: 29 yo male with PMH of ?HTN, Mixed hyperlipidemia, GODFREY, Rheumatoid arthritis, Meningioma with residual disease and GERD, seen in our office for new evaluation of hypothyroidism. Patient reports that he has been receiving pembrolozumab/bevacizumab since May 2024 for residual meningioma. Around 2 months ago he was diagnosed with hypothyroidism, initially started on Levothyroxine but developed side effects (nausea, dizziness), then transitioned to Levoxyl 50 mcg which he is taking early in the AM, separate from other foods and other meds. He never forgets to take it. He reports that per his neuro-oncologist, he will likely be on the current infusion for year, and based on imaging, would consider decreasing the dose in the 6 months followign that 1 year. He currently seems clinically euthyroid. Physical exam: General: Alert, well-appearing, no acute distress. HEENT: Normocephalic, atraumatic. PERRLA. Oropharynx clear. Neck: Supple, no lymphadenopathy or thyromegaly. Cardiac: Regular rate and rhythm, no murmurs. Lungs: Clear to auscultation bilaterally. Abdomen: Soft, non-tender, no masses. Extremities:No edema. Neuro: Alert and oriented, no weakness Labs: Most recent TSH from 02/12/25 (pt showed in the phone): 5.04 PFSH Surgical History (Updated 02/27/25 @ 09:50 by VALERIA Almaraz) History of meningioma History of hernia surgery History of appendectomy Family History Mother Hyperthyroidism Depression Mental health disorder Father Hypercholesterolemia Depression Mental health disorder Social History Housing: House Alcohol intake: never Patient Tobacco Use Status: Never used Tobacco e-Cigarette/Vaping Use: Never Used Second Hand Smoke Exposure: No service: No Current occupational status: disabled Cognitive needs: No Hearing needs: No Vision needs: Yes Physical Exam Vital Signs: Last Vital Signs Pulse 74 02/27/25 09:45 BP 124/80 02/27/25 09:45 Pulse Ox 96 02/27/25 09:45 Oxygen Delivery Method Room Air 02/27/25 09:45 BMI result Body Mass Index 32.3 Assessment & Plan Assessment & Plan (1) Drug-induced hypothyroidism: Comment: Primary hypothyroidism 2/2 Pembrolozumuab/ Bevacizumab Code(s): E03.2 - Hypothyroidism due to medicaments and other exogenous substances Category: Medical Plan Assesessment: Primary hypothyroidism 2/2 Pembrolozumuab/ Bevacizumab There is consistent history of Pembrolozumuab/ Bevacizumab and the timing of development follows a reasonable timing to assume the medications are the most likely causative agent. He also reported initial symptoms of hyperthyroidism which is consistent with the initial thyroiditis phase usually seen in this medications when thyroid is affected. He does have family history of hypothyroidism in mother and thyroid cancer in aunt. Plan Continue Levoxyl 50 mcg daily Will repeat TSH in 8 weeks to adjust dose as needed-he is losing some weight Will obtain TPO antibodies Will monitor for other side effects of Pembrolozumuab/ Bevacizumab- Pituitary Orders: Orders 2 TSH reflex Free T4 8 Weeks E03.2 - Hypothyroidism due to medicaments and other exogenous substances Thyroid Peroxidase Antibodies 8 Weeks E03.2 - Hypothyroidism due to medicaments and other exogenous substances Coding Level of Care Code New Pt Level 4 (84890) Diagnoses Drug-induced hypothyroidism E03.2 Time Spent (min) 50 Comment Time spent reviewing records, labs, evaluation and assessment/plan
--- OUTSIDE RECORDS SUMMARY | 2025-02-27 11:37 | XMS_ITS | Clinical Summary ---
Author Organization [address] [facility] Address [address] [place] [address] Phone Care Team Providers Care Rim Technician Name Role Phone Stefani Pressley MD Primary Care Provider [phone] Allergies No known active allergies Medications blood-glucose [...] Active Problems Problem Noted Date Diagnosed Date Arthritis 02/23/2025 Vision disturbance 04/27/2024 Chest pain 05/07/2023 Overview [...] Encounters Date Type Department Care Team Description 02/23/2025 10:27 AM EDT Anesthesia Event [facility] Endoscopy [address] [place] [address] Rut Ness MD Hard, Shannon, CRNA 02/23/2025 9:16 AM EDT - 02/23/2025 11:59 PM EDT Hospital Encounter [facility] [address] [place] [phone] Keenan De La Cruz MD Hard, Shannon, CRNA Spencer, Mark A, MD Epigastric abdominal pain; Gastroesophageal reflux disease without esophagitis Discharge Disposition: Home or Self Care 02/02/2025 10:00 AM EDT Office Visit Gastroenterology [facility] [address] [phone] Alyssia Dennis, FELICIA Epigastric abdominal pain (Primary Dx); Gastroesophageal reflux disease, unspecified whether esophagitis present 02/02/2025 Telephone Gastroenterology [facility] 175 [facility] [address] [phone] Alyssia Dennis NP 01/29/2025 Telephone Gastroenterology [facility] 175 [facility] [address] [phone] Alyssia Dennis NP from Last 3 Months Immunizations Name Administration Dates Next Due Influenza Quadravalent, MDCK , 0.5ml, preservative free (Flucelvax) 6mo and older 03/08/2020,04/11/2019 Moderna SARS-CoV-2 COVID-19, mRNA, LNP-S, preservative free 10/30/2020 Surgical History Surgery Date Site/Laterality Comments APPENDECTOMY PROCEDURE: [place] APPENDECTOMY FOOT SURGERY PROCEDURE: [place] UNLISTED PROCEDURE FOOT/TOES HERNIA REPAIR PROCEDURE: HISTORICAL HERNIA REPAIR/ING Medical History Medical History Date Comments 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 Hypermelanosis DX:Hypermelanosi s; COMMENT: hypermelanosis of francisco CAROLINE (juvenile idiopathic art hritis) ([facility] V24, CMS/[facility] V28) DX:CAROLINE (juvenile idiopathic arthritis) ([facility]) Vision disturbance DX:Vision dis turbance Alopecia DX:Alopecia Allergic rhinitis 09/06/2017 DX:Allergic rh initis Anxiety 05/03/2017 DX:Anxiety GERD (gastroesophageal reflu x disease) 02/07/2016 DX:GERD (gastroesophageal re flux disease) Hyperlipidemia 02/03/2018 DX:Hyperlipidemi a NSAID long-term use 06/14/2017 DX:NSAID francesca g-term use On etanercept therapy 06/14/2017 DX:On terrie ercept therapy Hypertension Family History Medical History Relation Name Comments [...] Orientation Straight 02/23/2025 9: 14 AM EDT Obstetrics History Last Filed Vital Signs Vital [...] 02/02/2025 10:04 AM EDT Plan of Treatment Health Maintenance Due [...] Screening (Lipid Panel) 08/09/2029 08/09/2024, 03/23/2024, 03/23/2024 RSV Immunization Adult Patients (1 - 1-dose 75+ series) 2070 Hepatitis C Screening Completed 03/23/2019 HIB Vaccines [...] abdominal pain Gastroesophageal reflux disease without esophagitis COMPREHENSIVE METABOLIC PANEL Routine 08/29/2024 7:48 AM [...] Recently Relevant to Health Maintenance Results * EGD Anesthesia - MAC; [facility] END[facility]COPY (02/23/2025 10:36 AM EDT) Anatomical Region [...] previously scheduled. Narrative 02/23/2025 10:37 AM EDT [facility] Patient Name: Koffi Moscoso Procedure Date: [...] was minimal. Procedure Code(s): --- Professional --- 58781, Esophagogastroduodenoscopy, flexible, transoral; with biopsy, single or multiple Diagnosis Code(s): --- Professional --- R12, Heartburn R10.13, Epigastric pain K21.9, Gastro-esophageal reflux disease without esophagitis CPT copyright 2020 [employer]. All rights reserved. The codes documented in this report are preliminary and upon instrument maker review may be revised to meet current compliance requirements. Keenan De La Cruz MD 02/23/2025 10:37:09 AM This report has been signed electronically.Keenan De La Cruz MD Number of Addenda: 0 Note Initiated On: 02/23/2025 10:16 AM Scope In: Scope Out: Endoscopy Department at [facility] - [address] [place] [phone] Procedure Note Keenan De La Cruz MD - 02/23/2025 [facility] GI Patient Name: Koffi Moscoso Procedure Date: [...] was minimal. Procedure Code(s): --- Professional --- 51140, Esophagogastroduodenoscopy, flexible, transoral; with biopsy, single or multiple Diagnosis Code(s): --- Professional --- R12, Heartburn R10.13, Epigastric pain K21.9, Gastro-esophageal reflux disease without esophagitis CPT copyright 2020 [employer]. All rights reserved. The codes documented in this report are preliminary and upon instrument maker reviewmay be revised to meet current compliance requirements. Keenan De La Cruz MD 02/23/2025 10:37:09 AM This report has been signed electronically.Keenan De La Cruz MD Number of Addenda: 0 Note Initiated On: 02/23/2025 10:16 AM Scope In: Scope Out: Endoscopy Department at [facility] - [address] [place] [phone] IMPRESSION: - Z-line regular, 40 cm from [...] reactive changes identified. 02/26/2025 10:28 AM EDT [facility] Gross Description A. Small Intestine, [...] one slide. CLINT 02/26/2025 10:28 AM EDT [facility] Disclaimer Unless otherwise specified, all tissue is 10% NB formalin fixed and paraffin embedded. 02/26/2025 10:28 AM EDT [facility] Tissue Duodenal structure / Unknown 02/23/2025 10:31 AM EDT 02/23/2025 12:36 PM EDT Tissue specimen (specimen) Pyloric antrum structure / Unknown 02/23/2025 10:32 AM EDT 02/23/2025 12:36 PM EDT us Keenan De La Cruz MD LAB PATHOLOGY ORDERABLES Tita l Result [facility] [address] [place] [address], * (ABNORMAL) Comprehensive metabolic panel (08/29/2024 7:48 AM EDT) Sodium 143 133 - 145 mmol/L LAB CHEMISTRY METHOD 08/29/2024 11:06 AM [facility] Potassium 4.1 3.5 - 5.5 mmol/L LAB CHEMISTRY METHOD 08/29/2024 11:06 AM [facility] Chloride 108 96 - 110 mmol/L LAB CHEMISTRY METHOD 08/29/2024 11:06 AM [facility] CO2 27 21 - 32 mmol/L LAB CHEMISTRY METHOD 08/29/2024 11:06 AM [facility] Anion Gap 8 3 - 11 LAB CHEMISTRY METHOD 08/29/2024 11:06 AM [facility] Glucose 87 70 - 100 mg/dL LAB CHEMISTRY METHOD 08/29/2024 11:06 AM [facility] BUN 14 5 - 25 mg/dL LAB CHEMISTRY METHOD 08/29/2024 11:06 AM [facility] Creatinine 1.16 0.70 - 1.30 mg/dL LAB CHEMISTRY METHOD 08/29/2024 11:06 AM [facility] eGFR 87 >=60 mL/min/1. 73m2 LAB CHEMISTRY METHOD 08/29/2024 11:06 AM [facility] Comment:Calculation based on the Chronic Kidney Disease Epidemiology Collaboration (CKD-EPI) equation refit without adjustment for race. BUN/Creatinine Ratio 12.1 LAB CHEMISTRY METHOD 08/29/2024 11:06 AM [facility] Calcium 9.6 8.5 - 10.5 mg/dL LAB CHEMISTRY METHOD 08/29/2024 11:06 AM [facility] AST (SGOT) 48(H) 10 - 42 unit/L LAB CHEMISTRY METHOD 08/29/2024 11:06 AM [facility] ALT (SGPT) 106(H) 10 - 60 unit/L LAB CHEMISTRY METHOD 08/29/2024 11:06 AM EDT [facility] Alkaline Phosphatase 73 42 - 121 unit/L LAB CHEMISTRY METHOD 08/29/2024 11:06 AM [facility] Total Protein 6.9 6.0 - 8.0 g/dL LAB CHEMISTRY METHOD 08/29/2024 11:06 AM [facility] Albumin 4.3 3.2 - 5.0 g/dL LAB CHEMISTRY METHOD 08/29/2024 11:06 AM [facility] Total Bilirubin 0.4 0.0 - 1.4 mg/dL LAB CHEMISTRY METHOD 08/29/2024 11:06 AM [facility] Blood Venous blood specimen / Unknown Venipuncture / Unknown 08/29/2024 7:48 AM EDT 08/29/2024 10:16 AM EDT [place] [facility] BLOOD ORDERABLES Final Resu lt [facility] [address] [place] [address], * (ABNORMAL) Lipid panel with reflex to direct LDL (08/09/2024 7:56 AM EST) Cholesterol 234(H) 0 - 200 mg/dL LAB CHEMISTRY METHOD 08/09/2024 9:07 AM [facility] Triglycerides 253(H) 0 - 150 mg/dL LAB CHEMISTRY METHOD 08/09/2024 9:07 AM [facility] HDL 52 >=40 mg/dL LAB CHEMISTRY METHOD 08/09/2024 9:07 AM [facility] LDL Calculated 131(H) 0 - 100 mg/dL LAB CHEMISTRY METHOD 08/09/2024 9:07 AM [facility] VLDL Cholesterol Robert 50.6 mg/dL LAB CHEMISTRY METHOD 08/09/2024 9:07 AM EST [facility] Non HDL Chol. (LDL+VLDL) 182(H) <145 mg/dL LAB CHEMISTRY METHOD 08/09/2024 9:07 AM EST [facility] Chol/HDL Ratio 4.5(H) 0.0 - 4.4 LAB CHEMISTRY METHOD 08/09/2024 9:07 AM EST [facility] Blood Venous blood specimen / Unknown Venipuncture / Unknown 08/09/2024 7:56 AM EST 08/09/2024 8:34 AM EST Rebecca Collazo MD LAB BLOOD ORDERABLES Final Res ult [facility] [address] [place] [address], * Hepatitis C Screening (03/23/2019) Pathologist [facility] Hepatitis C Screening Abstracted Historical Provider HEALTH MAINTENANCE Final Result from Last 3 Months or Most Recently Relevant to Health Maintenance Insurance [facility] MEDICARE Member Subscriber Plan / Payer (Ef fective 2018-Present) Name:KOFFI HERNÁNDEZ Relation to Subscriber:Self Name:Koffi Paez Payer ID:[id number] Group ID:[id number] Type:Not on file Address: [place] [facility] [place] [id number] Care Teams Rim Technician Relationship Specialty Start Date End Date Stefani Pressley MD [address] [place] [address] , [address] [place] [address] Physician Associ D/B/A: [facility] MANDA Dahl PCP - General Internal Medicine 02/23/25
--- OUTSIDE RECORDS SUMMARY | 2025-02-27 11:38 | XMS_ITS | Clinical Summary ---
Author Organization [facility] Address [address] [facility] [address] [place] [address] Phone Care Team Providers Care Youth Care Professional Name Role Phone Rebecca Collazo MD Primary Care Provider [phone] Allergies Active Allergy Reactions Criticality Noted Date [...] (06/16/2021): History of pauciarticular CAROLINE, DX in [place], Enbrel for 6 years,D/C'ed for development of [...] this topic Insurance MCR ([id number]) [place] [id number] MCR ([id number]) [place] [id number] Care Teams Youth Care Professional Relationship Specialty Start Date End Date Rebecca Collazo MD [address] [address] PCP - General 06/17/20
== END 2025-02-27 10:36 | disposition home or self-care (01) ==
LOC: HO.ENCR 09:44
PROVIDERS: PCP Internal Medicine; Visit Provider Student in an Organized Health Care Education/Training Program
DX: E03.2 Hypothyroidism due to medicaments and other exogenous substances (principal)
CPT/HCPCS: 99204

== ENCOUNTER → 2025-02-27 09:43 | Outpatient (BNVA) | payer OTHER, SELFPAY | PROVIDERS: PCP Internal Medicine; Visit Provider Student in an Organized Health Care Education/Training Program | DX: E03.2 Hypothyroidism due to medicaments and other exogenous substances (principal) | CPT/HCPCS: 99202 ==

== ENCOUNTER 2025-03-14 10:04 | Outpatient (AMB) | payer OTHER, SELFPAY ==
[2025-03-14 10:07] VITALS: BP 102/64; PULSE 67; RESP 18; TEMP 36.3; O2SAT 96; BMI 32.1
--- NOTE | 2025-03-14 10:07 | A.OFFPC_ITS ---
Vital Signs 03/14/25 10:07 Height 5 ft 5 in Weight 193 lb BMI 32.1 BP 102/64 Blood Pressure Location Lt brachial Position Sitting Respiration 18 Pulse 67 Pulse Source Pulse Oximeter Temp 97.3 F Temp Source Temporal Artery Scan Pulse Oximetry (%) 96 Oxygen Delivery Method Room Air Intake Visit Reasons: P.E Grader Operator Required: Yes Grader Operator Language: Hospitality Workers Name: [id number]/Cristina Accompanied by: Self / Same As Patient Allergies No Known Allergies (No Known Allergies*) Allergy (Verified 03/14/25 10:34) Medication List - Last Reconciled 03/14/25 by GERTRUDE Soriano alum-mag hydroxide-simeth 200-200-20 mg/5 mL (Rocío-Lanta) mL PO bevacizumab-awwb (Mvasi) IV cholecalciferol (vitamin D3) (Vitamin D3) 50 mcg PO DAILY ciclopirox 0.77% 1 appl topical BID 6 months cyanocobalamin (vitamin B-12) 500 mcg PO DAILY disposable gloves As directed fenofibrate 54 mg PO DAILY hydroxyzine HCl 10 mg PO BID Levoxyl (levothyroxine) 50 mcg PO DAILY 90 days NS lisinopril 5 mg PO DAILY meclizine 25 mg PO TID PRN pantoprazole 40 mg PO DAILY simvastatin 40 mg PO BEDTIME [wash cloth As directed] Tobacco use date assessed: 03/14/25 Dental Screening Dental Screen Date: 03/14/25 Did you have a dental visit in the last 12 months?: Yes Did you have a dental problem in the last 6 months where you did not have access to dental care?: No Was dental information given to patient?: Patient has dentist HPI P.E HPI Details Dentist: up to date Eye: up to date Snellen: Right: Left: Corrected vision: yes, for long distance STI screening:n/a Colonoscopy: Pap Smer:n/a PHQ-9: Flu: given office today COVID: x3 Tdap: He is not sure when he had this; will hold off for now Diet:regular Exercise: The patient is a 29-year-old male presenting to [facility] care accompanied by mother and management of multiple chronic conditions. He is managing mixed hyperlipidemia with simvastatin and fenofibrate, and hypertension with lisinopril. He also has hypomelanosis, although specific details are not elaborated. There is a history of meningioma, with treatment involving three removals, but residuals persist, requiring ongoing oncology intervention. Anxiety and mild depression are noted, with no current mental health treatment sought. The patient's family history includes maternal depression and hyperthyroidism and paternal depression and hypercholesterolemia. He has elevated TSH, suggesting hypothyroidism, and experiences occasional fatigue, potentially due to ongoing treatments. He has regular nephrology and gastroenterology follow-ups and is under specialized care for his complex health concerns. pembrolizumab injection 21 days, march 05. EGD gastritis ,march 22. [facility] Surgical History History of meningioma History of hernia surgery History of appendectomy Family History Mother Hyperthyroidism Depression Mental health disorder Father Hypercholesterolemia Depression Mental health disorder Social History Housing: House Alcohol intake: never Patient Tobacco Use Status: Never used Tobacco e-Cigarette/Vaping Use: Never Used Second Hand Smoke Exposure: No service: No Current occupational status: disabled Cognitive needs: No Hearing needs: No Vision needs: Yes Questionnaire Thrive Questionnaire Date Thrive assessed: 11/02/24 I am a: Patient What is your living situation today?: I have a steady place to live Within the past 12 months, did the food you bought not last and you didn't have the money to get more?: Never true Within the past 12 months, did you worry whether your food would run out before you got money to buy more?: Sometimes True Do you have trouble paying for medicines?: No Do you have trouble getting transportation to medical appointments?: No Do you have trouble paying your heating and electricity bill?: No Do you have trouble taking care of your child, family member or friend?: I choose not to answer this question Do you have trouble with day-to-day activities such as bathing, preparing meals, shopping, managing finances, etc.?: Yes Are you currently unemployed and looking for a job?: I choose not to answer this question Are you interested in more education?: I choose not to answer this question Please select the resources that you would like help with: None Currently or been in a relationship where the following occur: No concerns reported THRIVE Score: 1 GODFREY-7 AMB Questionnaire GODFREY-7 Date GODFREY - 7 assessed: 11/02/24 Source: Developed by Drs. Syd Gutierrez, Hailey Riley, True Morales and colleagues, with an educational keith from [employer]. Physical exam (Primary Care) Vital Signs: Last Vital Signs Temp 97.3 F 03/14/25 10:07 Pulse 67 03/14/25 10:07 Resp 18 03/14/25 10:07 BP 102/64 03/14/25 10:07 Pulse Ox 96 03/14/25 10:07 Oxygen Delivery Method Room Air 03/14/25 10:07 BMI result Body Mass Index 32.1 Tobacco/Smoking Status: Tobacco use Status Tobacco use date assessed 03/14/25 03/14/25 10:14 Patient Tobacco Use Status Never used Tobacco 03/14/25 10:14 e-Cigarette/Vaping Use Never Used 03/14/25 10:14 Thrive Assessment: Date of Thrive Assessment Date Thrive assessed 11/02/24 03/14/25 10:14 Currently or been in a relationship where the following occur: No concerns reported Office Procedures Flu Questionnaire Does the patient have a severe egg allergy?: No Does the patient have severe life threatening allergies?: No Does the patient have a fever or illness today?: No Has the patient ever had Guillain-[place] Syndrome?: No Has the patient ever had any past reaction to a flu shot?: No Immunizations Fluarix [id number] (PF) 45 mcg (15 mcg x 3)/0.5 mL IM syringe Performing Provider: GERTRUDE Soriano [place] [facility] [facility] Administered by: Alisha Rossi CMA on 03/14/25 10:51 Dose Route Admin Location Dispensed Lot Number Expiration Date [facility] Director Of Dementia Operations 0.5 mL IM Left Deltoid 0.5 mL [id number] 12/04/25 [id number] [employer] VIS Given Date VIS Provided VIS Publication Date 03/14/25 Single Vaccine 24 Eligibility Eligibility Date Funding Source Not [facility] Eligible 03/14/25 Private Coding Diagnoses Annual physical exam Z00.00 Assessment & Plan Assessment & Plan (1) Annual physical exam: Code(s): Z00.00 - Encounter for general adult medical examination without abnormal findings Category: Medical Orders: Orders Influenza [id number] Immunization Today Z23 - Encounter for immunization Comprehensive [place]. Panel Fast Today E03.2 - Hypothyroidism due to medicaments and other exogenous substances, E07.9 - Disorder of thyroid, unspecified, E53.8 - Deficiency of other specified B group vitamins, E55.9 - Vitamin D deficiency, unspecified, E78.2 - Mixed hyperlipidemia, F41.1 - Generalized anxiety disorder, I10 - Essential (primary) hypertension, K21.9 - Gastro-esophageal reflux disease without esophagitis, R74.8 - Abnormal levels of other serum enzymes, Z86.018 - Personal history of other benign neoplasm TSH reflex Free T4 Today E03.2 - Hypothyroidism due to medicaments and other exogenous substances, E07.9 - Disorder of thyroid, unspecified, E53.8 - Deficiency of other specified B group vitamins, E55.9 - Vitamin D deficiency, unspecified, E78.2 - Mixed hyperlipidemia, F41.1 - Generalized anxiety disorder, I10 - Essential (primary) hypertension, K21.9 - Gastro-esophageal reflux disease without esophagitis, R74.8 - Abnormal levels of other serum enzymes, Z86.018 - Personal history of other benign neoplasm Free T4 (Free Thyroxine) Today E03.2 - Hypothyroidism due to medicaments and other exogenous substances, E07.9 - Disorder of thyroid, unspecified, E53.8 - Deficiency of other specified B group vitamins, E55.9 - Vitamin D deficiency, unspecified, E78.2 - Mixed hyperlipidemia, F41.1 - Generalized anxiety disorder, I10 - Essential (primary) hypertension, K21.9 - Gastro-esophageal reflux disease without esophagitis, R74.8 - Abnormal levels of other serum enzymes, Z86.018 - Personal history of other benign neoplasm Vitamin B12 and Folate Today E03.2 - Hypothyroidism due to medicaments and other exogenous substances, E07.9 - Disorder of thyroid, unspecified, E53.8 - Deficiency of other specified B group vitamins, E55.9 - Vitamin D deficiency, unspecified, E78.2 - Mixed hyperlipidemia, F41.1 - Generalized anxiety disorder, I10 - Essential (primary) hypertension, K21.9 - Gastro-esophageal reflux disease without esophagitis, R74.8 - Abnormal levels of other serum enzymes, Z86.018 - Personal history of other benign neoplasm Complete Blood Count Auto Diff Today E03.2 - Hypothyroidism due to medicaments and other exogenous substances, E07.9 - Disorder of thyroid, unspecified, E53.8 - Deficiency of other specified B group vitamins, E55.9 - Vitamin D deficiency, unspecified, E78.2 - Mixed hyperlipidemia, F41.1 - Generalized anxiety disorder, I10 - Essential (primary) hypertension, K21.9 - Gastro-esophageal reflux disease without esophagitis, R74.8 - Abnormal levels of other serum enzymes, Z86.018 - Personal history of other benign neoplasm Lipid Panel Today E03.2 - Hypothyroidism due to medicaments and other exogenous substances, E07.9 - Disorder of thyroid, unspecified, E53.8 - Deficiency of other specified B group vitamins, E55.9 - Vitamin D deficiency, unspecified, E78.2 - Mixed hyperlipidemia, F41.1 - Generalized anxiety disorder, I10 - Essential (primary) hypertension, K21.9 - Gastro-esophageal reflux disease without esophagitis, R74.8 - Abnormal levels of other serum enzymes, Z86.018 - Personal history of other benign neoplasm UA CC w/rflx Micro + Cult Today E03.2 - Hypothyroidism due to medicaments and other exogenous substances, E07.9 - Disorder of thyroid, unspecified, E53.8 - Deficiency of other specified B group vitamins, E55.9 - Vitamin D deficiency, unspecified, E78.2 - Mixed hyperlipidemia, F41.1 - Generalized anxiety disorder, I10 - Essential (primary) hypertension, K21.9 - Gastro-esophageal reflux disease without esophagitis, R74.8 - Abnormal levels of other serum enzymes, Z86.018 - Personal history of other benign neoplasm Vitamin D 25-OH Total Today E03.2 - Hypothyroidism due to medicaments and other exogenous substances, E07.9 - Disorder of thyroid, unspecified, E53.8 - Deficiency of other specified B group vitamins, E55.9 - Vitamin D deficiency, unspecified, E78.2 - Mixed hyperlipidemia, F41.1 - Generalized anxiety disorder, I10 - Essential (primary) hypertension, K21.9 - Gastro-esophageal reflux disease without esophagitis, R74.8 - Abnormal levels of other serum enzymes, Z86.018 - Personal history of other benign neoplasm
== END 2025-03-14 11:14 | disposition home or self-care (01) ==
LOC: HO.HMCH 10:05
PROVIDERS: PCP Internal Medicine
DX: Z23 Encounter for immunization (principal)

== ENCOUNTER → 2025-03-14 10:04 | Outpatient (BNVA) | payer OTHER, SELFPAY | PROVIDERS: PCP Internal Medicine | DX: Z00.00 Encounter for general adult medical examination without abnormal findings (principal); K29.70 Gastritis, unspecified, without bleeding; E78.2 Mixed hyperlipidemia; I10 Essential (primary) hypertension; R53.83 Other fatigue; F41.1 Generalized anxiety disorder; E03.2 Hypothyroidism due to medicaments and other exogenous substances; E55.9 Vitamin D deficiency, unspecified; E53.8 Deficiency of other specified B group vitamins; K21.9 Gastro-esophageal reflux disease without esophagitis; R74.8 Abnormal levels of other serum enzymes; L81.5 Leukoderma, not elsewhere classified; Z86.018 Personal history of other benign neoplasm; Z23 Encounter for immunization | CPT/HCPCS: 90471; 90656; 99395 ==

== ENCOUNTER 2025-03-23 07:41 | Outpatient (REF) | payer OTHER, SELFPAY ==
--- OUTSIDE RECORDS SUMMARY | 2025-03-22 10:40 | XMS_ITS | Encounter Summary ---
Author Organization [employer] Address [id number] [place] [id number] Care Team Providers Care Crane Operator Cab Name Role Phone Stefani Pressley MD Primary Care Provider [phone] Reason for Visit * Reason Comments Abdominal Pain f/u post egd Encounter Details Date Type Department Care Team (Latest Contact Info) Description 03/22/2025 10:40 AM EDT Office Visit Gastroenterology - [place] [address] [place] [phone] Alyssia Dennis, FELICIA 175 [facility] [address] [place] [address] Gastroesophageal reflux disease without esophagitis (Primary Dx); Gastritis determined by biopsy Social History Tobacco Use Types Packs/Day Years Used Date Smoking Tobacco: Never Smokeless Tobacco: Never Alcohol Use Standard Drinks/Week Comments No 0 (1 standard drink = 0.6 oz pur e alcohol) Interpersonal Safety Answer Date Record ed Physical Abuse Unrecognized value 02/23/2025 Verbal Abuse Unrecognized value 02/23/2025 Sex and Gender Information Value Date Recorded Sex Assigned at Male 02/23/2025 9:14 AM EDT Legal Sex Male 10:26 AM EST Gender Identity Male 02/23/2025 9:14 AM EDT Sexual Orientation Straight 02/23/2025 9: 14 AM EDT documented as of this encounter Last Filed Vital Signs Vital Sign Reading Time Taken Comments Blood Pressure 130/80 03/22/2025 10:35 AM EDT Pulse 71 03/22/2025 10:35 AM EDT Temperature - - Respiratory Rate - - Oxygen Saturation 93% 03/22/2025 10:35 AM EDT Inhaled Oxygen Concentration - - Weight 86.2 kg (190 lb) 03/22/2025 10:35 AM EDT Height 165.1 cm (5' 5 ) 03/22/2025 10:35 AM EDT Body Mass Index 31.62 03/22/2025 10:35 AM EDT documented in this encounter Progress Notes * Alyssia Jeannie, INSTITUTIONAL COOK - 03/22/2025 10:40 AM EDT CHIEF COMPLAINT: Follow-up EGD HPI: Koffi Moscoso is a Palestinian-speaking 29 y.o. old male whose PMH includes allergic rhinitis, alopecia, anxiety, chronic lumbar pain, hypertension, hyperlipidemia, hypomelanosis, mass of scalp, meningioma, thrombosis of cerebral vein and vision disturbance presents to the gastroenterology department today for follow-up EGD. Patient is Palestinian-speaking. certified court interpreter #[id number] used. He is accompanied by his mother during this visit. Patient was seen on 02/02/2025 for ongoing epigastric abdominal pain and GERD. He completed diagnostic EGD on 02/23/2025. EGD showed mild chronic inactive gastritis but otherwise normal EGD. He continues to take pantoprazole daily. He is also making dietary/lifestyle changes. Today, he denies fever, nausea, vomiting, dysphagia, odynophagia, hematemesis, abdominal pain or discomfort, loss of appetite, unintentional weight loss, melena or hematochezia. He denies alcohol, tobacco or marijuana use. He has stopped using NSAIDs. EGD 02/23/2025: Z-line regular. Normal esophagus, normal stomach and normal examined duodenum. Biopsied. Pathology: Benign duodenal mucosa with no specific pathologic change. Gastric mucosa with mild chronic inactive gastritis. No H. pylori. ROS: GENERAL: No malaise, significant weight loss or fever HEENT: No changes in hearing or vision, nose bleeds or swallowing problems NECK: No lumps, goiter, pain or significant neck swelling RESPIRATORY: No cough, wheezing or shortness of breath CARDIOVASCULAR: No chest pain GI: See HPI MUSCULOSKELETAL: No joint pain or swelling, back pain, or muscle pain. SKIN: No lesions, rash or itching PAST MEDICAL HISTORY: Problem List[1] PAST SURGICAL HISTORY: Surgical History[2] SOCIAL HISTORY: Social History[3] FAMILY HISTORY: Family History[4] MEDICATIONS: Medications Taking[5] ALLERGIES: Current Allergies[6] PHYSICAL EXAM: Visit Vitals BP 130/80 Pulse 71 Ht 1.651 m (65 ) Wt 86.2 kg (190 lb) SpO2 93% BMI 31.62 kg/m?? Smoking Status Never BSA 1.94 m?? APPEARANCE: Alert and in no acute distress EYES: Conjunctiva and sclera normal. MOUTH/THROAT: No erythema, exudates or lesions noted NECK: Neck supple, no adenopathy HEART: RRR with normal S1 and S2 LUNG: clear to auscultation ABDOMEN: soft non tender, no ascites, guarding, or rebound. RECTAL: Exam deferred NEURO: Awake, alert and oriented x 3 SKIN: Skin color, texture, turgor normal. LABS: No pertinent labs within the last 1 month IMAGING: No pertinent imaging within the last 1 month IMPRESSION: 1. Gastroesophageal reflux disease without esophagitis 2. Gastritis determined by biopsy PLAN: Koffi Moscoso is a Palestinian-speaking 29 y.o. old male whose PMH includes allergic rhinitis, alopecia, anxiety, chronic lumbar pain, hypertension, hyperlipidemia, hypomelanosis, mass of scalp, meningioma, thrombosis of cerebral vein and vision disturbance presents for follow-up EGD. 1. GERD; 2. Gastritis determined by biopsy: EGD 02/23/2025: Z-line regular. Normal esophagus, normal stomach and normal examined duodenum. Biopsied. Pathology: Benign duodenal mucosa with no specific pathologic change. Gastric mucosa with mild chronic inactive gastritis. No H. pylori. I recommend lifestyle modifications including weight loss, elevate head while in bed, sitting upright during and after meals, avoidance of food intake atleast less than 3 hours before bedtime and cessation of foods that potentially aggravate reflux symptoms such as coffee, chocolate, carbonated beverages, spicy foods, acidic foods and foods with high fat content. Take pantoprazole as directed. Follow-up in 6 months. Patient agrees with the above plan and understands the need to follow up as indicated. Please note, this note may have been created in part by using [employer] dictation software, and therefore, it may contain typographical and/or grammatical errors inherent in a voice recognition software program No orders of the defined types were placed in this encounter. None [1] Patient Active Problem List Diagnosis Allergic rhinitis Alopecia Anxiety Brachydactyly type A2 Chest pain Chronic lumbar pain Cough Essential hypertension GERD (gastroesophageal reflux disease) Hyperlipidemia Hypermelanosis Mass of scalp Meningioma (CMS/HCC V24, CMS/HCC V28) Thrombosis cerebral vein Vision disturbance Arthritis Mild intellectual disability Juvenile idiopathic arthritis (CMS/HCC V24, CMS/HCC V28) [2] Past Surgical History: Procedure Laterality Date APPENDECTOMY PROCEDURE: [place] APPENDECTOMY FOOT SURGERY PROCEDURE: [place] UNLISTED PROCEDURE FOOT/TOES HERNIA REPAIR PROCEDURE: HISTORICAL HERNIA REPAIR/ING [3] Social History Tobacco Use Smoking status: Never Smokeless tobacco: Never Substance Use Topics Alcohol use: No Drug use: No [4] Family History Problem Relation Name Age of Onset Diabetes Father Coronary artery disease Father Hypertension Father Asthma Brother Arthritis Aunt Lung cancer Maternal Grandmother Hyperthyroidism Other Hyperlipidemia Other [5] Outpatient Medications Marked as Taking for the 03/22/25 encounter (Office Visit) with Alyssia Dennis NP Medication Sig Dispense Refill amoxicillin (AMOXIL) 875 mg tablet BEVACIZUMAB IV Infuse into a venous catheter. Q 21 days blood-glucose meter kit 1 Each by Does not apply route daily. cholecalciferol (VITAMIN D-3) 50 mcg (2,000 unit) tablet TAKE 1 TABLET BY MOUTH ONCE DAILY 30 tablet 1 ciclopirox (LOPROX) 0.77 % suspension cyanocobalamin (VITAMIN B-12) 500 mcg tablet TAKE 1 TABLET BY MOUTH ONCE DAILY 30 tablet 0 fenofibrate (LOFIBRA) 54 mg tablet TAKE 1 TABLET BY MOUTH ONCE DAILY 30 tablet 1 hydrOXYzine HCL (ATARAX) 10 mg tablet Take 1 Tablet by mouth every 6 hours as needed for Itching. LevoxyL 50 mcg tablet Take 1 tablet (50 mcg total) by mouth 1 (one) time each day before breakfast. lisinopriL (PRINIVIL,ZESTRIL) 5 mg tablet TAKE 1 TABLET BY MOUTH ONCE DAILY 30 tablet 1 meclizine (ANTIVERT) 25 mg tablet meloxicam (MOBIC) 15 mg tablet OneTouch Ultra Test test strip USE TO TEST 1 TIME DAILY 100 strip 1 ONETOUCH ULTRASOFT LANCETS [facility] Use daily to check blood sugars. pantoprazole (PROTONIX) 40 mg EC tablet TAKE 1 TABLET BY MOUTH ONCE DAILY 30 tablet 1 PEMBROLIZUMAB IV Infuse into a venous catheter. Q 21 days prochlorperazine (COMPAZINE) 10 mg tablet simvastatin (ZOCOR) 40 mg tablet TAKE 1 TABLET BY MOUTH ONCE DAILY 30 tablet 1 [6] No Known Allergies documented in this encounter Plan of Treatment Upcoming Encounters Date Type Department Care Team (Late st Contact Info) Description 03/22/2026 10:40 AM EDT Office Visit Gastroenterology - [place] 175 [facility] 175 [facility] [address] [place] [phone] Alyssia Dennis NP 175 [facility] [address] [place] [address] documented as of this encounter Visit Diagnoses Diagnosis Gastroesophageal reflux disease without esophagitis- Primary Esophageal reflux Gastritis determined by biopsy documented in this encounter Discontinued Medications Medication Sig Discontinue Reason Start Date End Da te Antacid-Antigas 200-200-20 mg/5 mL suspension TAKE 30ML BY MOUTH 4 TIMES DAILY BEFORE MEALS AND NIGHTLY 01/29/2025 03/22/2025 documented as of this encounter Historical Medications * This list may reflect changes made after this encounter. Medication Sig Dispense Quantity Refills Last Filled Start D ate End Date prochlorperazine (COMPAZINE) 10 mg tablet meloxicam (MOBIC) 15 mg tablet 02/26/2025 ciclopirox (LOPROX) 0.77 % suspension 02/22/2025 amoxicillin (AMOXIL) 875 mg tablet 02/09/2025 added in this encounter Care Teams Crane Operator Cab Relationship Specialty Start Date End Date Stefani Pressley MD [address] [place] [address] , [address] Physician Associ D/B/A: [facility] [place] PCP - General Internal Medicine 02/23/25 documented as of this encounter
--- OUTSIDE RECORDS SUMMARY | 2025-03-23 07:45 | XMS_ITS | Clinical Summary ---
Author Organization [facility] Address [address] [place] [address] Phone Care Team Providers Care Budget And Policy Analyst Name Role Phone Stefani Pressley MD Primary Care Provider [phone] Allergies No known active allergies Medications blood-glucose meter kit 1 Each by Does not apply route daily. 4 Active ONETOUCH ULTRASOFT LANCETS MIS Use daily to check blood sugars. 4 Active hydrOXYzine HCL (ATARAX) 10 mg tablet Take 1 Tablet by mouth every 6 hours as needed for Itching. 4 Active p.glycol algin/polysorb ates ([employer] TOP) 3 Packages by Does not apply route continuous. 4 Active OneTouch Ultra Test test strip USE TO TEST 1 TIME DAILY 100 strip 1 5 Active BEVACIZUMAB IV Infuse into a venous catheter. Q 21 days Active PEMBROLIZUMAB IV Infuse into a venous catheter. Q 21 days Active LevoxyL 50 mcg tablet Take 1 tablet (50 mcg total) by mouth 1 (one) time each day before breakfast. 5 Active meclizine (ANTIVERT) 25 mg tablet 5 Active cyanocobalamin (VITAMIN B-12) 500 mcg tablet TAKE 1 TABLET BY MOUTH ONCE DAILY 30 tablet 5 Active simvastatin (ZOCOR) 40 mg tablet TAKE 1 TABLET BY MOUTH ONCE DAILY 30 tablet 1 5 Active fenofibrate (LOFIBRA) 54 mg tablet TAKE 1 TABLET BY MOUTH ONCE DAILY 30 tablet 1 5 Active lisinopriL (PRINIVIL,ZEST RIL) 5 mg tablet TAKE 1 TABLET BY MOUTH ONCE DAILY 30 tablet 1 5 Active cholecalcifero l (VITAMIN D-3) 50 mcg (2,000 unit) tablet TAKE 1 TABLET BY MOUTH ONCE DAILY 30 tablet 1 5 Active pantoprazole (PROTONIX) 40 mg EC tablet TAKE 1 TABLET BY MOUTH ONCE DAILY 30 tablet 1 5 Active amoxicillin (AMOXIL) 875 mg tablet 5 Active ciclopirox (LOPROX) 0.77 % suspension 5 Active meloxicam (MOBIC) 15 mg tablet 5 Active prochlorperazi ne (COMPAZINE) 10 mg tablet Active cyanocobalamin (VITAMIN B-12) 500 mcg tablet Take 1 Tablet by mouth daily for 360 days. 4 025 Discontinued simvastatin (ZOCOR) 40 mg tablet Take 1 tablet (40 mg total) by mouth at bedtime. 30 each 5 5 025 Discontinued Antacid-Antiga s 200-200-20 mg/5 mL suspension TAKE 30ML BY MOUTH 4 TIMES DAILY BEFORE MEALS AND NIGHTLY 3600 mL 1 5 025 Discontinued lisinopriL (PRINIVIL,ZEST RIL) 5 mg tablet TAKE 1 TABLET BY MOUTH ONCE DAILY 30 tablet 5 025 Discontinued cholecalcifero l (VITAMIN D-3) 50 mcg (2,000 unit) tablet TAKE 1 TABLET BY MOUTH ONCE DAILY 30 tablet 5 025 Discontinued pantoprazole (PROTONIX) 40 mg EC tablet TAKE 1 TABLET BY MOUTH ONCE DAILY 30 tablet 5 025 Discontinued fenofibrate (LOFIBRA) 54 mg tablet TAKE 1 TABLET BY MOUTH ONCE DAILY 30 tablet 5 025 Discontinued Active Problems Problem Noted Date Diagnosed Date Mild intellectual disability 03/16/2025 Juvenile idiopathic arthritis (CMS/HCC V24, CMS/ HCC V28) 03/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 Arthritis 02/23/2025 Vision disturbance 04/27/2024 Chest pain [...] Encounters Date Type Department Care Team Description 03/22/2025 10:40 AM EDT Office Visit Gastroenterology - [place] [address] [place] [address] Alyssia Dennis NP Gastroesophageal reflux disease without esophagitis (Primary Dx); Gastritis determined by biopsy 03/02/2025 Telephone Gastroenterology [facility] [address] [address] Alyssia Dennis NP 02/23/2025 10:27 AM EDT Anesthesia Event [facility] [address] [place] [phone] Rut Ness MD Hard, Shannon, CRNA 02/23/2025 9:16 AM EDT - 02/23/2025 11:59 PM EDT Hospital Encounter [facility] [address] [place] [phone] Keenan De La Cruz MD Hard, Shannon, CRNA Spencer, Mark A, MD Epigastric abdominal pain; Gastroesophageal reflux disease without esophagitis Discharge Disposition: Home or Self Care 02/02/2025 10:00 AM EDT Office Visit Gastroenterology [facility] [address] [address] Alsysia Dennis NP Epigastric abdominal pain (Primary Dx); Gastroesophageal reflux disease, unspecified whether esophagitis present 02/02/2025 Telephone Gastroenterology [facility] [address] [address] Alyssia Dennis NP 01/29/2025 Telephone Gastroenterology [facility] [address] [address] Alyssia Dennis NP from Last 3 Months Immunizations Immunization Administration Dates Next Due Influenza Quadravalent, MDCK , 0.5ml, preservative free (Flucelvax) 6mo and older 03/08/2020,04/11/2019 Moderna SARS-CoV-2 COVID-19, mRNA, LNP-S, preservative free 10/30/2020 Surgical History Surgery Date Site/Laterality Comments APPENDECTOMY PROCEDURE: [place] APPENDECTOMY FOOT SURGERY PROCEDURE: [place] UNLISTED PROCEDURE FOOT/TOES HERNIA REPAIR PROCEDURE: HISTORICAL HERNIA REPAIR/ING Medical History Medical History Date Comments 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 Hypermelanosis DX:Hypermelanosi s; COMMENT: hypermelanosis of francisco CAROLINE (juvenile idiopathic art hritis) ([facility]/HCC V24, CMS/HCC V28) DX:CAROLINE (juvenile idiopathic arthritis) ([facility]) Vision disturbance DX:Vision dis turbance Alopecia DX:Alopecia [...] Pulse 71 03/22/2025 10:35 AM EDT Temperature 36 C (96.8 F) 02/23/2025 9:42 AM EDT Respiratory Rate 23 02/23/2025 10:57 AM EDT Oxygen Saturation 93% 03/22/2025 10:35 AM EDT Inhaled Oxygen Concentration - - Weight 86.2 kg (190 lb) 03/22/2025 10:35 AM EDT Height 165.1 cm (5' 5 ) 03/22/2025 10:35 AM EDT Body Mass Index 31.62 03/22/2025 10:35 AM EDT Plan of Treatment Upcoming Encounters Date Type Department Care Team (Late st Contact Info) Description 03/22/2026 10:40 AM EDT Office Visit Gastroenterology - [place] [address] [place] [phone] Alyssia Dennis, FELICIA 175 [facility] [address] [place] [address] Health Maintenance Due Date Last Done Comments DTaP,Tdap,and Td Vaccines (1 - Tdap) 2014 Hepatitis B Vaccines (1 of 3 - 19+ 3-dose series) 2014 COVID-19 Vaccine (3 - Moderna risk series) 11/27/2020 10/30/2020, 09/28/2020 HPV Vaccines (1 - 3-dose SCDM series) 2022 HIV Screening 05/16/2022 Medicare Annual Wellness Visit 05/16/2022 Social Influencers of Health Screening 05/16/2022 Depression Screening 06/07/2024 Hypertension/CHF/CAD Annual BMP Blood Test 08/29/2025 08/29/2024, 08/09/2024, 03/23/2024, Additional history exists Cholesterol Screening (Lipid Panel) 08/09/2029 08/09/2024, 03/23/2024, 03/23/2024 RSV Immunization Adult Patients (1 - 1-dose 75+ series) 2070 Hepatitis C Screening Completed 03/23/2019 Influenza Vaccine Completed 03/14/2025, , 04/11/2019 HIB Vaccines Aged Out No longer eligi [...] Maintenance Results * EGD Anesthesia - MAC; [facility] END[facility]COPY (02/23/2025 10:36 AM EDT) Anatomical Region [...] previously scheduled. Narrative 02/23/2025 10:37 AM EDT [facility] GI Patient Name: Koffi Moscoso Procedure [...] was minimal. Procedure Code(s): --- Professional --- 51906, Esophagogastroduodenoscopy, flexible, transoral; with biopsy, single or multiple Diagnosis Code(s): --- Professional --- R12, Heartburn R10.13, Epigastric pain K21.9, Gastro-esophageal reflux disease without esophagitis CPT copyright 2020 [employer]. All rights reserved. The codes documented in this report are preliminary and upon it account manager review may be revised to meet current compliance requirements. Keenan De La Cruz MD 02/23/2025 10:37:09 AM This report has been signed electronically.Keenan De La Cruz MD Number of Addenda: 0 Note Initiated On: 02/23/2025 10:16 AM Scope In: Scope Out: Endoscopy Department at [facility] - [address] [place] [phone] Procedure Note Keenan De La Cruz MD - 02/23/2025 [facility] GI Patient Name: Koffi Moscoso Procedure [...] was minimal. Procedure Code(s): --- Professional --- 63659, Esophagogastroduodenoscopy, flexible, transoral; with biopsy, single or multiple Diagnosis Code(s): --- Professional --- R12, Heartburn R10.13, Epigastric pain K21.9, Gastro-esophageal reflux disease without esophagitis CPT copyright 2020 [employer]. All rights reserved. The codes documented in this report are preliminary and upon it account manager reviewmay be revised to meet current compliance requirements. Keenan De La Cruz MD 02/23/2025 10:37:09 AM This report has been signed electronically.Keenan De La Cruz MD Number of Addenda: 0 Note Initiated On: 02/23/2025 10:16 AM Scope In: Scope Out: Endoscopy Department at [facility] - [address] [place] [phone] IMPRESSION: - Z-line regular, 40 cm from [...] reactive changes identified. 02/26/2025 10:28 AM EDT [facility] Gross Description A. Small Intestine, Duodenum, [...] one slide. CLINT 02/26/2025 10:28 AM EDT [facility] Disclaimer Unless otherwise specified, all tissue is 10% NB formalin fixed and paraffin embedded. 02/26/2025 10:28 AM EDT [facility] Tissue Duodenal structure / Unknown 02/23/2025 10:31 AM EDT 02/23/2025 12:36 PM EDT Tissue specimen (specimen) Pyloric antrum structure / Unknown 02/23/2025 10:32 AM EDT 02/23/2025 12:36 PM EDT us Keenan De La Cruz MD LAB PATHOLOGY ORDERABLES Tita bazan Result [facility] [address] [place] [address], [place] [phone] * (ABNORMAL) Comprehensive metabolic panel (08/29/2024 7:48 AM EDT) Sodium 143 133 - 145 mmol/L LAB CHEMISTRY METHOD 08/29/2024 11:06 AM [facility] Potassium 4.1 3.5 - 5.5 mmol/L LAB CHEMISTRY METHOD 08/29/2024 11:06 AM [facility] Chloride 108 96 - 110 mmol/L LAB CHEMISTRY METHOD 08/29/2024 11:06 AM [facility] CO2 27 21 - 32 mmol/L LAB CHEMISTRY METHOD 08/29/2024 11:06 AM [facility] Anion Gap 8 3 - 11 LAB CHEMISTRY METHOD 08/29/2024 11:06 AM [facility] Glucose 87 70 - 100 mg/dL LAB CHEMISTRY METHOD 08/29/2024 11:06 AM [facility] BUN 14 5 - 25 mg/dL LAB CHEMISTRY METHOD 08/29/2024 11:06 AM [facility] Creatinine 1.16 0.70 - 1.30 mg/dL LAB CHEMISTRY METHOD 08/29/2024 11:06 AM [facility] eGFR 87 >=60 mL/min/1. 73m2 LAB CHEMISTRY METHOD 08/29/2024 11:06 AM EDT [facility] Comment:Calculation based on the Chronic Kidney Disease Epidemiology Collaboration (CKD-EPI) equation refit without adjustment for race. BUN/Creatinine Ratio 12.1 LAB CHEMISTRY METHOD 08/29/2024 11:06 AM [facility] Calcium 9.6 8.5 - 10.5 mg/dL LAB CHEMISTRY METHOD 08/29/2024 11:06 AM [facility] AST (SGOT) 48(H) 10 - 42 unit/L LAB CHEMISTRY METHOD 08/29/2024 11:06 AM [facility] ALT (SGPT) 106(H) 10 - 60 unit/L LAB CHEMISTRY METHOD 08/29/2024 11:06 AM [facility] Alkaline Phosphatase 73 42 - 121 unit/L LAB CHEMISTRY METHOD 08/29/2024 11:06 AM [facility] Total Protein 6.9 6.0 - 8.0 g/dL LAB CHEMISTRY METHOD 08/29/2024 11:06 AM [facility] Albumin 4.3 3.2 - 5.0 g/dL LAB CHEMISTRY METHOD 08/29/2024 11:06 AM [facility] Total Bilirubin 0.4 0.0 - 1.4 mg/dL LAB CHEMISTRY METHOD 08/29/2024 11:06 AM [facility] Blood Venous blood specimen / Unknown Venipuncture / Unknown 08/29/2024 7:48 AM EDT 08/29/2024 10:16 AM EDT us [place] LAB BLOOD ORDERABLES Final Resu lt [facility] [address] [place] [address], * (ABNORMAL) Lipid panel with reflex to direct LDL (08/09/2024 7:56 AM EST) Cholesterol 234(H) 0 - 200 mg/dL LAB CHEMISTRY METHOD 08/09/2024 9:07 AM [facility] Triglycerides 253(H) 0 - 150 mg/dL LAB CHEMISTRY METHOD 08/09/2024 9:07 AM [facility] HDL 52 >=40 mg/dL LAB CHEMISTRY METHOD 08/09/2024 9:07 AM [facility] LDL Calculated 131(H) 0 - 100 mg/dL LAB CHEMISTRY METHOD 08/09/2024 9:07 AM [facility] VLDL Cholesterol Robert 50.6 mg/dL LAB CHEMISTRY METHOD 08/09/2024 9:07 AM [facility] Non HDL Chol. (LDL+VLDL) 182(H) <145 mg/dL LAB CHEMISTRY METHOD 08/09/2024 9:07 AM [facility] Chol/HDL Ratio 4.5(H) 0.0 - 4.4 LAB CHEMISTRY METHOD 08/09/2024 9:07 AM [facility] Blood Venous blood specimen / Unknown Venipuncture / Unknown 08/09/2024 7:56 AM EST 08/09/2024 8:34 AM EST Rebecca Collazo MD LAB BLOOD ORDERABLES Final Res ult [facility] [address] [place] [address], * Hepatitis C Screening (03/23/2019) Hepatitis C Screening Abstracted us Historical Provider HEALTH MAINTENANCE Final Result from Last 3 Months or Most Recently Relevant to Health Maintenance Insurance [facility] MEDICARE Member Subscriber Plan / Payer (Ef fective 2018-Present) Name:KOFFI HERNÁNDEZ Relation to Subscriber:Self Name:Koffi Paez Payer ID:[id number] Group ID:[id number] Type:Not on file Address: [facility] [address] [facility] [place] [phone] Care Teams Budget And Policy Analyst Relationship Specialty Start Date End Date Stefani Pressley MD [address] [facility] [facility] D[facility]A: [facility] MANDA Dahl PCP - General Internal Medicine 02/23/25
--- OUTSIDE RECORDS SUMMARY | 2025-03-23 07:45 | XMS_ITS | Clinical Summary ---
Author Organization [facility] Address [address] [facility] [address] [place] [address] Phone Care Team Providers Care Horse Racetrack Manager Name Role Phone Rebecca Collazo MD Primary Care Provider [phone] Allergies Active Allergy Reactions Criticality Noted Date [...] (06/16/2021): History of pauciarticular CAROLINE, DX in ID, Enbrel for 6 years,D/C'ed for development of [...] this topic Insurance MCR ([id number]) [place] [id number] MCR ([id number]) [place] [id number] Care Teams Horse Racetrack Manager Relationship Specialty Start Date End Date Rebecca Collazo MD [address] [address] PCP - General 06/17/20
[2025-03-23 08:02] LABS: MANUAL DIFF FLAG NO
[2025-03-23 08:26] LABS: Hematocrit 49.4 % (42.0-52.0); Hemoglobin 16.5 g/dl (14.0-18.0); Imm Gran Abs Auto 0.04 X10*3/uL (0.00-0.03); Imm Gran Pct Auto 0.6 % (0.0-0.4); Lymphocytes Absolute Auto 2.0 X10*3/uL (1.2-4.9); Mean Corpuscular HGB Conc 33.4 g/dl (31.0-36.0); Mean Corpuscular Hemoglobin 29.6 pg (27.0-33.0); Mean Corpuscular Volume 88.5 fL (80.0-98.0); NRBC Abs Auto 0.000 X10*3/uL (0.0-0.012); NRBC Pct Auto 0.0 /100WBC (0.0-0.2); Platelet Count 177 X10*3/uL (160-400); Red Blood Count 5.58 X10*6/uL (4.60-5.80); White Blood Count 6.3 X10*3/uL (4.8-10.8)
[2025-03-23 08:34] LABS: Appearance Urine Clear; Glucose Urine UA Negative (Negative); PH 5.5 (5.0-9.0); Specific Gravity - Urine 1.025 (1.005-1.025); UMIC TRIGGER UACC YES
[2025-03-23 08:57] LABS: Alanine Aminotransferase 34 U/L (0-40); Albumin Level 4.8 g/dL (3.5-5.0); Alkaline Phosphatase 49 U/L (39-117); Anion Gap 12 (12-20); Aspartate Amino Transferase 26 U/L (5-37); Blood Urea Nitrogen 23 mg/dL (9-16); Calcium 9.8 mg/dL (8.4-10.2); Carbon Dioxide 25 mmol/L (22-29); Chloride 110 mmol/L (96-108); Cholesterol 153 mg/dL (<200); Estimated Glomerular Filt Rate > 60; HDL Cholesterol 45 mg/dL (>40); Potassium 4.2 mmol/L (3.3-5.1); Sodium 143 mmol/L (135-145); Total Protein 7.0 g/dL (6.5-8.0); Triglycerides 108 mg/dL (<150)
[2025-03-23 09:14] LABS: Free T4 (Free Thyroxine) 1.08 ng/dL (0.71-1.85)
[2025-03-23 09:22] LABS: Folate 6.1 ng/mL (> or = 4.0); Vitamin B12 595 pg/mL (200-900)
== END 2025-03-23 07:42 | disposition home or self-care (01) ==
LOC: HO.LAB 07:41
PROVIDERS: PCP Internal Medicine
DX: K21.9 Gastro-esophageal reflux disease without esophagitis (principal); E53.8 Deficiency of other specified B group vitamins; E03.2 Hypothyroidism due to medicaments and other exogenous substances; F41.1 Generalized anxiety disorder; I10 Essential (primary) hypertension; E78.2 Mixed hyperlipidemia; E55.9 Vitamin D deficiency, unspecified; R74.8 Abnormal levels of other serum enzymes; E07.9 Disorder of thyroid, unspecified; Z86.018 Personal history of other benign neoplasm
CPT/HCPCS: 36415; 80053; 80061; 81001; 82306; 82607; 82746; 84439; 84443; 85025

== ENCOUNTER 2025-04-06 13:37 | Outpatient (AMB) | payer OTHER, SELFPAY ==
[2025-04-06 13:46] VITALS: BP 110/86; TEMP 36.3; BMI 31.3
--- NOTE | 2025-04-06 13:46 | A.OFFPC_ITS ---
Vital Signs 04/06/25 13:46 Height 5 ft 5 in Weight 188 lb BMI 31.3 BP 110/86 Blood Pressure Location Lt brachial Position Sitting Pulse Source Pulse Oximeter Temp 97.3 F Temp Source Temporal Artery Scan Oxygen Delivery Method Room Air Intake Visit Reasons: Upper respiratory infection Retention Representative Required: Yes Retention Representative Language: Correctional Casework Specialist Name: [id number]/Cristina Accompanied by: mom Allergies No Known Allergies (No Known Allergies*) Allergy (Verified 04/06/25 13:52) Medication List - Last Reconciled 04/06/25 by Levy Joshua MD alum-mag hydroxide-simeth 200-200-20 mg/5 mL (Rocío-Lanta) mL PO bevacizumab-awwb (Mvasi) IV cholecalciferol (vitamin D3) (Vitamin D3) 50 mcg PO DAILY ciclopirox 0.77% 1 appl topical BID 6 months cyanocobalamin (vitamin B-12) 500 mcg PO DAILY disposable gloves As directed fenofibrate 54 mg PO DAILY hydroxyzine HCl 10 mg PO BID Levoxyl (levothyroxine) 50 mcg PO DAILY 90 days NS lisinopril 5 mg PO DAILY meclizine 25 mg PO TID PRN pantoprazole 40 mg PO DAILY simvastatin 40 mg PO BEDTIME [wash cloth As directed] Tobacco use date assessed: 03/14/25 Dental Screening Dental Screen Date: 04/06/25 Did you have a dental visit in the last 12 months?: Yes Did you have a dental problem in the last 6 months where you did not have access to dental care?: No Was dental information given to patient?: Patient has dentist HPI HPI Comments History of Present Illness Details The patient is a 29-year-old male presenting with a sore throat, mucus, and shortness of breath. His symptoms began yesterday and have worsened today. He reports significant pain with swallowing but denies any fevers. He denies any sick contacts. His office rapid strep test was negative. His past medical history is significant for two meningioma surgeries. He receives immunity-boosting infusions every 21 days for low immunity levels. His next infusion is scheduled for April 16 in [place]. [facility] Surgical History History of meningioma History of hernia surgery History of appendectomy Family History Mother Hyperthyroidism Depression Mental health disorder Father Hypercholesterolemia Depression Mental health disorder Social History Housing: House Alcohol intake: never Patient Tobacco Use Status: Never used Tobacco e-Cigarette/Vaping Use: Never Used Second Hand Smoke Exposure: No service: No Current occupational status: disabled Cognitive needs: No Hearing needs: No Vision needs: Yes Questionnaire PHQ-9 Over the last 2 weeks, how often have you been bothered by any of the following problems? 1. Little interest or pleasure in doing things: several days 2. Feeling down, depressed, or hopeless: several days 3. Trouble falling or staying asleep, or sleeping too much: several days 4. Feeling tired or having little energy: several days 5. Poor appetite or overeating: not at all 6. Feeling bad about yourself - or that you are a failure or have let yourself or your family down: not at all 7. Trouble concentrating on things, such as reading the newspaper or watching television: several days 8. Moving or speaking so slowly that other people could have noticed. Or the opposite - being so fidgety or restless that you have been moving around a lot more than usual: several days 9. Thoughts that you would be better off or of hurting yourself in some way: not at all Total score: 6 Depression Screening Interpretation: Positive Depression Screening Follow-up: Existing condition and Follow-up Visit Requested Depression Screening Done: Yes Source: Developed by Drs. Syd Gutierrez, Hailey Riley, True Morales and colleagues, with an educational keith from [employer]. Thrive Questionnaire Date Thrive assessed: 04/06/25 I am a: Patient What is your living situation today?: I have a steady place to live Within the past 12 months, did the food you bought not last and you didn't have the money to get more?: Never true Within the past 12 months, did you worry whether your food would run out before you got money to buy more?: Sometimes True Do you have trouble paying for medicines?: No Do you have trouble getting transportation to medical appointments?: No Do you have trouble paying your heating and electricity bill?: No Do you have trouble taking care of your child, family member or friend?: I choose not to answer this question Do you have trouble with day-to-day activities such as bathing, preparing meals, shopping, managing finances, etc.?: Yes Are you currently unemployed and looking for a job?: I choose not to answer this question Are you interested in more education?: I choose not to answer this question Please select the resources that you would like help with: None Currently or been in a relationship where the following occur: No concerns reported THRIVE Score: 1 AUDIT C Alcohol Use Questionnaire (AUDIT-C) 1. How often do you have a drink containing alcohol?: Never Total Score: 0 Score Reviewed/Action Taken: No GODFREY-7 AMB Questionnaire GODFREY-7 Date GODFREY - 7 assessed: 04/06/25 Feeling nervous, anxious, or on edge: 0 = Not at all Not being able to stop or control worryin = Not at all Worrying too much about different things: 0 = Not at all Trouble relaxin = Not at all Being so restless that it is hard to sit still: 0 = Not at all Becoming easily annoyed or irritable: 0 = Not at all Feeling afraid as if something awful might happen: 0 = Not at all Total GODFREY-7 score (0-4 normal; 5-9 mild; 10-14 moderate; 15-21 severe): 0 Source: Developed by Drs. Syd Gutierrez, Hailey Riley, True Morales and colleagues, with an educational keith from [employer]. Review of Systems Const Details: As per HPI. Physical exam (Primary Care) Vital Signs: Last Vital Signs Temp 97.3 F 04/06/25 13:46 BP 110/86 04/06/25 13:46 Oxygen Delivery Method Room Air 04/06/25 13:46 BMI result Body Mass Index 31.3 Tobacco/Smoking Status: Tobacco use Status Tobacco use date assessed 03/14/25 04/06/25 13:48 Patient Tobacco Use Status Never used Tobacco 04/06/25 13:48 e-Cigarette/Vaping Use Never Used 04/06/25 13:48 PHQ-9: PHQ-9 Score PHQ-9: Total score 6 04/06/25 14:33 Depression Screening Interpretation: Positive Depression Screening Follow-up: Existing condition and Follow-up Visit Requested Thrive Assessment: Date of Thrive Assessment Date Thrive assessed 04/06/25 04/06/25 13:53 Currently or been in a relationship where the following occur: No concerns reported Results AMB Rapid Strep AMB Rapid Strep Negative Last Edit by VALERIA Guadalupe on 04/06/25 14:3 3 Results Reviewed Results Reviewed: Laboratory Last Values Strep Scn Rapid Clinic Negative 04/06/25 14:10 Coding Level of Care Code Est Pt Level 3 (36424) Diagnoses Acute infective pharyngitis J02.9 Assessment & Plan Assessment & Plan (1) Acute infective pharyngitis: Code(s): J02.9 - Acute pharyngitis, unspecified Category: Medical Plan: - A rapid strep test was performed to evaluate for streptococcal infection. Negative. - Will prescribe Augumentin for 10 days. - The patient receives regular immunity infusions every 21 days. - Advised the patient to inform the infusion center about the current infection and the prescribed antibiotics at his next appointment on April 16, although no interference with his chemotherapy is expected. Plan I informed the patient that I will be prescribing antibiotics to treat his symptoms. We discussed his upcoming immunity infusion scheduled for April 16 in [place]. I advised him to let the infusion center know that he had a recent infection that is being treated with antibiotics, noting that it is unl ikely to interfere with his treatment but is important for them to be aware of. Orders: Orders AMB Rapid Strep Screen Today Z13.9 - Encounter for screening, unspecified Medications: New amoxicillin-pot clavulanate 1,000-62.5 mg (Augmentin XR) 1 tab PO BID 20 tabs 0RF 10 days
--- OUTSIDE RECORDS SUMMARY | 2025-04-06 14:34 | XMS_ITS | Data Portability ---
Author Organization [employer] [facility], [facility] Address [address] [place] [address] Care Team Providers Care Medical Assisting Program Director Name Role Phone HIM CCA OTHER EUSEBIO BARON Primary Care Provider Assessment Encounter Date Assessment Date Assessment LastModified by Organization Details LastModified Time 07/21/2024 07/21/2024 I provided real -time medical direction via phone for this encounter, and was available for additional phone based assistance as needed. I have reviewed and agree with the Assessment and Plan as documented by the Online Media Buyer. We discussed the diagnostic uncertainty of home [...] call 911- they verbalized understanding of instruction [email or web address] Not available 07/21/2024 16:11:52 10/13/2024 10/13/2024 I provided real -time medical direction via phone for this encounter and was available for additional phone-based assistance as needed. I have reviewed and agree with the Assessment and Plan as documented by the Online Media Buyer. Patient given the opportunity to ask questions. [...] same complaints. Everyone's symptoms are improving Per heater planer operator on the scene, VSS, NAD, appears hydrated. Pain to palpation to left side of abd. Neg rebound per heater planer operator . BMP was reviewed. Impression and plan: nausea and diarrhea. Differential diagnosis includes viral gastroenteritis given other family members are ill. Review of patient's and family members dietary history is less suggestive of food poisoning. Symptoms are are overall improving. Per heater planer operator on the scene there is no concerning subjective or objective findings to warrant an emergent emergency room evaluation. Additionally the patient appears well hydrated to the heater planer operator on the scene and is not orthostatic. [...] BMP, serum or plasma 2024 025 BRYAN [facility], [address] [place] [address], [phone] 5 12:36:52 rapid flu (A+B) 2024 025 [email or web address] 0 [facility], [address] [place] [address], [phone] 5 11:17:03 rapid SARS CoV 2 Ag, QL IA, respiratory specimen 2024 025 [email or web address] [address], [phone] 5 11:10:03 Referral None recorded. Procedures None recorded. Surgeries None recorded. Imaging None recorded. Medication Orders azithromyci n 250 mg tablet 2024 025 [email or web address] 0 [facility], [address] [place], [address], 5 11:09:26 benzonatate 100 mg capsule 2024 025 [email or web address] 0 [facility], [address] [place], [address], 5 11:09:26 azithromyci n 250 mg tablet 2024 025 [email or web address] 0 [facility], [address] [place], [address], 5 16:12:47 benzonatate 200 mg capsule 2024 025 BRYAN [facility], [address] [place], [address], 5 11:19:20 Saline Nasal Mist 0.65 % spray aerosol 2024 025 BRYAN [facility], [address] [place], [address], 5 11:19:20 Patient TargetsNo targets recorded. Patient InstructionsNo instructions recorded. Reason for Referral None Reported. Results Created Date Observation Date Name Description Value Unit Range Abnormal Flag Note LastModifiedBy Organization Detail LastModifiedTime 07/21/1907/21/2024 rapid SARS CoV 2 Ag, QL IA, respi rator y speci men rapid SARS CoV 2 Ag, QL IA, respiratory specimen negati ve Not Available [facility] - [facility] [address] [place] [address], [phone] 07/21/2024 11:09:43 07/21/19 25 07/21/2024 rapid flu (A+B) Flu negati ve Not Available Main - [facility] ed [address] [place] [address], [phone] 07/21/2024 11:09:38 Result Notes None recorded. Medical [...] Not Available No t Available Artificial Tears (us930-iryle hannah-glyceri n) 1 %-0.2 %-0.2 % eye [...] Respiratory rate Body temperature Heart rate Systolic And Diastolic Provider Name and Address Organization Details Last Updated DateTime 5 97 % 97 % 16 /min 98.4 [degF] 94 /min 136/88 mm[Hg] Not Available [employer] 5 11:06:38 Date Recorded Heart rate Respiratory rate Body temperature Oxygen saturation Oxygen saturation in Arterial blood by Pulse oximetry Systolic And Diastolic Provider Name and Address Organization Details Last Updated DateTime 5 86 /min 18 /min 97.3 [degF] 96 % 96 % 142/95 mm[Hg] Not Available [employer] 5 09:43:39 Social History None recorded. Functional Status None recorded. Mental Status None recorded. Family History Nothing Reported. Medical History No medical history recorded. Past Encounters Encounter ID Performer Location Encounter Start Date Encounter Closed Date Diagnosis/Indication Diagnosis SNOMED-CT Code Diagnosis ICD10 Code Diagnosis IMO Codes Diagnosis Note [id number] Kellie Lennon MD Main - [facility] [address] [place] [phone] 07/21/2024 11:06:36 07/22/2024 09:43:11 Upper respiratory infection 84653134 J06.9 possible sinusitis- where patient is immune compromise d on immunother apy infusions and had a fever of 102.9 earlier and rapid viral testing is negative I will cover with antibiotic s. They are requesting a cough suppressan t, aware benzonatat e is not covered.Al lergies and pharmacy reviewedSu ggested Tylenol 1 g every 8 hours if remains febrile, to stay well-hydra gualberto, warm compresses to sinuses-pa tient and mother verbalized understand ing to the medic [id number] Pat Hernandez MD Main - [facility] [address] [place] [phone] 10/13/2024 09:43:34 10/13/2024 19:23:30 Nausea and vomiting [id number] R11.2 [id number] Health Concerns Section Related Observation LastModified by Organization Detai ls LastModified Time None Recorded Concern Status LastModified by Organization Details LastModified Time None Recorded Advance Directives Directive None Recorded Payers Insurance Date Sequence Insurance Name Policy Number Policy Bell Covered Member ID Bell Member ID Guarantor Name 10/13/2024 1 [facility] - DOS ON OR AFTER 2022 - DUAL ELIGIBLE - HALF-WAY OPTIONS AND ONE CARE (MEDICARE REPLACEMENT/ADV ANTAGE - HMO) Koffi Lee ra [id number] Koffi De León Notes Date Note Type Note Provider Name and Address Organization Details Recorded Time 07/21/2024 text/html ROS as noted in the HPI HPI: 08:12am [facility] and [facility] request [facility] visit for URI symptoms. They decline ED as AAKASH is a n infusion patient and they fear exposure to [...] other symptoms. AAKASH is congested-sounding to this literary writer, but no stridor or wheezing could be [...] so if necessary. This call originated from [phone]. ...................... ...................... ...................... ...................... ...................... ...................... ......... CRC Nurse Triage Notes (oScorro Cronin - RN): Chief Complaints: Common cold symptoms, Cough, Fatigue, Fever/chills, Headache, Weakness PMH: Anxiety Disorder, Chronic Pain, Gastroesophageal Reflux Disease (GERD), Hyperlipidemia, Hypertension, Obesity PMH Reviewed at 07/21/2024:08 Allergies Reviewed at 07/21/2024 - :08 Comments: HPI reviewed- NE Online Media Buyer Organization Information for Kurt Oneal Business Legal Name: [email or web address] Address: [address] [place] [address], Sports Management Internship: Joey Blackwell MD [facility] No.: [id number] Online Media Buyer POC Test Results from Kurt Oneal - ALS Rapid COVID antigen (10:56:54) COVID: - Rapid influenza antigen (10:56:55) Flu: - ...................... ...................... ...................... ...................... ...................... ...................... ......... Online Media Buyer Note From Kurt Oneal: Dispatched to the [...] - facial/sinus tenderness, Afebrile, Rapid coivd/flu (-). [facility] [place]. Pt given 200mg Benzonatate and 500mg Azithromycin PO. Scripts called into preferred pharmacy. Red flags discussed. ALL times are approx. [facility] [place] Orders: rapid flu (A+B): Performed rapid SARS CoV 2 Ag, QL IA, respiratory specimen: Performed [facility] Medication Orders: azithromycin 250 mg tablet: Administered benzonatate 100 mg capsule: Administered ...................... ...................... ...................... ...................... ...................... ...................... ......... [facility] Consulted: Kellie Lennon ...................... ...................... ...................... ...................... ...................... ...................... ......... Disposition: Fulfilled Kellie Lennon MD [address] [place] [address],[address] [facility], [place], [address] [employer] 07/21/2024 16:13:27 10/13/2024 text/html CRC Nurse Triage [...] Disease (GERD), Hyperlipidemia, Hypertension, ObesityPMH Reviewed at 10/13/2024 08:43[facility] Reviewed at 10/13/2024:43Pain Assessment: Level null out [...] signs of when to seek emergency care. Online Media Buyer Organization Information for Enrique [employer] Legal Name: [facility] Address: [address] [place] [address], [place] [address], Sports Management Internship: Jhon Motley MD CLIA No.: [id number] Online Media Buyer POC Test Results from Enrique Crow [employer] [facility] (09:55:12) pH: 7.362 pH units pCO2: 50.2 mmHg pO2: 29.7 mmHg Na: 146 mmol/L K: 3.9 mmol/L iCa: 1.20 mmol/L Cl: 107 mmol/L TCO2: 27.8 mEq/L Hct: 46 % Hb: 15.6 g/dL Glu: 80 mg/dL Lac: 1.21 mmol/L Cr: 0.93 mg/dL BUN: 12.6 mg/dL A mmol/L HCO3: 28.5 mmol/L ...................... ...................... ...................... ...................... ...................... ...................... ......... Online Media Buyer Note From Enrique Crow: Arrived to find patient ambulating in the residence. Patient aox4 GCS 15 skin pink warm and dry n patient has been endorsing vomiting abdominal pain and diarrhea since Wednesday. Patient a stated that he has been having diarrhea approximately 7 days. Patient able to tolerate PO intake. VS as noted. Afebrile. [facility] contacted and advised blood work. Patient blood work obtained as noted. Patient abdomen tender to left side. [facility] and provider advised if he has increased pain to go to hospital for evaluation for diverticulitis. Patient in agreement [facility] Lab Orders: BMP, serum or plasma: Performed ...................... ...................... ...................... ...................... ...................... ...................... ......... [facility] Consulted: Pat Hernandez ...................... ...................... ...................... ...................... ...................... ...................... ......... Disposition: Andrea Hernandez MD [address] [facility],[address], [place], [address], JONH NUNEZ 10/13/2024 12:35:13
--- OUTSIDE RECORDS SUMMARY | 2025-04-06 14:34 | XMS_ITS | Clinical Summary ---
Author Organization [address] [facility] Address [address] [place] [address] Phone Care Team Providers Care Guest Experience Captain Name Role Phone Stefani Pressley MD Primary Care Provider [phone] Allergies No known active allergies Medications blood-glucose meter kit 1 Each by Does not apply route daily. 4 Active ONETOUCH ULTRASOFT LANCETS MISC Use daily to check blood sugars. 4 [...] meclizine (ANTIVERT) 25 mg tablet 5 Active simvastatin (ZOCOR) 40 mg [...] BY MOUTH ONCE DAILY 30 tablet 1 Active pantoprazole (PROTONIX) 40 mg EC tablet TAKE 1 TABLET BY MOUTH ONCE DAILY 30 tablet 1 5 Active amoxicillin (AMOXIL) 875 mg tablet 5 Active ciclopirox (LOPROX) 0.77 % suspension Active meloxicam (MOBIC) 15 mg tablet Active prochlorperazi ne (COMPAZINE) 10 mg tablet Active cyanocobalamin (VITAMIN B-12) 500 mcg tablet TAKE 1 TABLET BY MOUTH ONCE DAILY 30 tablet Active Antacid-Antiga s 200-200-20 mg/5 mL suspension TAKE 30ML BY MOUTH 4 TIMES DAILY BEFORE MEALS AND NIGHTLY 3600 mL 1 5 025 Discontinued cyanocobalamin (VITAMIN B-12) 500 mcg tablet TAKE [...] pressures remain consistently elevated at home. Meningioma (CMS/[facility] V24, CMS/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 03/02/2025 Telephone Gastroenterology [facility] 175 [facility] [address] [phone] Alyssia Dennis NP 02/23/2025 10:27 AM EDT Anesthesia Event [facility] [address] [place] [phone] Rut Ness MD Hard, Shannon, CRNA 02/23/2025 9:16 AM EDT - 02/23/2025 11:59 PM EDT Hospital Encounter [facility] [address] [place] [phone] Slitzky, Keenan E, MD Hard, Zulma, TERRITORY DEVELOPMENT MANAGER Lm, Klaus A, MD Epigastric abdominal pain; Gastroesophageal reflux disease without esophagitis Discharge Disposition: Home or Self Care 02/02/2025 10:00 AM EDT Office Visit Gastroenterology [facility] [address] [facility] [address] [place] [address] Alyssia Dennis, FELICIA Epigastric abdominal pain (Primary Dx); Gastroesophageal reflux disease, unspecified whether esophagitis present 02/02/2025 Telephone [facility]enter[facility] [address] [facility] [address] [place] [address] Alyssia Dennis NP 01/29/2025 Telephone [facility]enter[facility] [address] [facility] [address] [place] [address] Alyssia Dennis, FELICIA from Last 3 Months Immunizations Immunization Administration Dates Next Due Influenza Quadravalent, MDCK , 0.5ml, preservative free (Flucelvax) 6mo and older 03/08/2020,04/11/2019 Moderna SARS-CoV-2 COVID-19, mRNA, LNP-S, preservative free 10/30/2020 Surgical History Surgery Date Site/Laterality Comments APPENDECTOMY PROCEDURE: [place] APPENDECTOMY FOOT SURGERY PROCEDURE: [place] UNLISTED PROCEDURE FOOT/TOES HERNIA REPAIR PROCEDURE: HISTORICAL HERNIA REPAIR/ING Medical History Medical History Date Comments 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 V24, [facility] V28) DX:CAROLINE (juvenile idiopathic arthritis) ([facility]) Vision disturbance DX:Vision dis turbance Alopecia [...] 10:40 AM EDT Office Visit Gastroenterology - [address] [place] [phone] Alyssia Dennis NP [address] [place] [address] Health Maintenance Due Date Last Done Comments [...] Maintenance Results * EGD Anesthesia - MAC; [facility] ENDOSCOPY (02/23/2025 10:36 AM EDT) Anatomical [...] previously scheduled. Narrative 02/23/2025 10:37 AM EDT [facility] GI Patient Name: Koffi Moscoso Procedure [...] was minimal. Procedure Code(s): --- Professional --- 26854, Esophagogastroduodenoscopy, flexible, transoral; with biopsy, single or multiple Diagnosis Code(s): --- Professional --- R12, Heartburn R10.13, Epigastric pain K21.9, Gastro-esophageal reflux disease without esophagitis CPT copyright 2020 [employer]. All rights reserved. The codes documented in this report are preliminary and upon hospital pharmacy technician review may be revised to meet current compliance requirements. Keenan De La Cruz MD 02/23/2025 10:37:09 AM This report has been signed electronically.Keenan De La Cruz MD Number of Addenda: 0 Note Initiated On: 02/23/2025 10:16 AM Scope In: Scope Out: Endoscopy Department at [facility] - [address] [place] [phone] Procedure Note Keenan De La Cruz MD - 02/23/2025 [facility] GI Patient Name: Koffi Moscoso Procedure [...] was minimal. Procedure Code(s): --- Professional --- 20831, Esophagogastroduodenoscopy, flexible, transoral; with biopsy, single or multiple Diagnosis Code(s): --- Professional --- R12, Heartburn R10.13, Epigastric pain K21.9, Gastro-esophageal reflux disease without esophagitis CPT copyright 2020 [employer]. All rights reserved. The codes documented in this report are preliminary and upon hospital pharmacy technician reviewmay be revised to meet current compliance requirements. Keenan De La Cruz MD 02/23/2025 10:37:09 AM This report has been signed electronically.Keenan De La Cruz MD Number of Addenda: 0 Note Initiated On: 02/23/2025 10:16 AM Scope In: Scope Out: Endoscopy Department at [facility] - [address] [place] [phone] IMPRESSION: - Z-line regular, 40 cm from [...] reactive changes identified. 02/26/2025 10:28 AM EDT [facility] Gross Description A. Small [...] one slide. CLINT 02/26/2025 10:28 AM EDT [facility] Disclaimer Unless otherwise specified, all tissue is 10% NB formalin fixed and paraffin embedded. 02/26/2025 10:28 AM EDT [facility] Tissue Duodenal structure / Unknown 02/23/2025 10:31 AM EDT 02/23/2025 12:36 PM EDT Tissue specimen (specimen) Pyloric antrum structure / Unknown 02/23/2025 10:32 AM EDT 02/23/2025 12:36 PM EDT us Keenan De La Cruz MD LAB PATHOLOGY ORDERABLES Tita bazan Result [facility] [address] [place] [address], * (ABNORMAL) Comprehensive metabolic panel (08/29/2024 7:48 AM EDT) Sodium 143 133 - 145 mmol/L LAB CHEMISTRY METHOD 08/29/2024 11:06 AM [facility] Potassium 4.1 3.5 - 5.5 mmol/L LAB CHEMISTRY METHOD 08/29/2024 11:06 AM [facility] Chloride 108 96 - 110 mmol/L LAB CHEMISTRY METHOD 08/29/2024 11:06 AM [facility] CO2 27 21 - 32 mmol/L LAB CHEMISTRY METHOD 08/29/2024 11:06 AM [facility] Anion Gap 8 3 - 11 LAB CHEMISTRY METHOD 08/29/2024 11:06 AM [facility] Glucose 87 70 - 100 mg/dL LAB CHEMISTRY METHOD 08/29/2024 11:06 AM [facility] BUN 14 5 - 25 mg/dL LAB CHEMISTRY METHOD 08/29/2024 11:06 AM [facility] Creatinine 1.16 0.70 - 1.30 mg/dL LAB CHEMISTRY METHOD 08/29/2024 11:06 AM [facility] eGFR 87 >=60 mL/min/1. 73m2 LAB CHEMISTRY METHOD 08/29/2024 11:06 AM [facility] Comment:Calculation based on the Chronic Kidney Disease Epidemiology Collaboration (CKD-EPI) equation refit without adjustment for race. BUN/Creatinine Ratio 12.1 LAB CHEMISTRY METHOD 08/29/2024 11:06 AM [facility] Calcium 9.6 8.5 - 10.5 mg/dL LAB CHEMISTRY METHOD 08/29/2024 11:06 AM [facility] AST (SGOT) 48(H) 10 - 42 unit/L LAB CHEMISTRY METHOD 08/29/2024 11:06 AM [facility] ALT (SGPT) 106(H) 10 - 60 unit/L LAB CHEMISTRY METHOD 08/29/2024 11:06 AM [facility] Alkaline Phosphatase 73 42 - 121 unit/L LAB CHEMISTRY METHOD 08/29/2024 11:06 AM EDT [facility] Total Protein 6.9 6.0 - 8.0 g/dL LAB CHEMISTRY METHOD 08/29/2024 11:06 AM EDT [facility] Albumin 4.3 3.2 - 5.0 g/dL LAB CHEMISTRY METHOD 08/29/2024 11:06 AM EDT [facility] Total Bilirubin 0.4 0.0 - 1.4 mg/dL LAB CHEMISTRY METHOD 08/29/2024 11:06 AM EDT [facility] Blood Venous blood specimen / Unknown Venipuncture / Unknown 08/29/2024 7:48 AM EDT 08/29/2024 10:16 AM EDT us [facility] LAB BLOOD ORDERABLES Final Resu lt [facility] [address] [place] [address], [place] [phone] * (ABNORMAL) Lipid panel with reflex to direct LDL (08/09/2024 7:56 AM EST) Cholesterol 234(H) 0 - 200 mg/dL LAB CHEMISTRY METHOD 08/09/2024 9:07 AM [facility] Triglycerides 253(H) 0 - 150 mg/dL LAB CHEMISTRY METHOD 08/09/2024 9:07 AM [facility] HDL 52 >=40 mg/dL LAB CHEMISTRY METHOD 08/09/2024 9:07 AM [facility] LDL Calculated 131(H) 0 - 100 mg/dL LAB CHEMISTRY METHOD 08/09/2024 9:07 AM [facility] VLDL Cholesterol Robert 50.6 mg/dL LAB CHEMISTRY METHOD 08/09/2024 9:07 AM [facility] Non HDL Chol. (LDL+VLDL) 182(H) <145 mg/dL LAB CHEMISTRY METHOD 08/09/2024 9:07 AM EST [facility] Chol/HDL Ratio 4.5(H) 0.0 - 4.4 LAB CHEMISTRY METHOD 08/09/2024 9:07 AM EST [facility] Blood Venous blood specimen / Unknown Venipuncture / Unknown 08/09/2024 7:56 AM EST 08/09/2024 8:34 AM EST us Rebecca Collazo MD LAB BLOOD ORDERABLES Final Res ult [facility] [address] [place] [address], [place] [phone] * Hepatitis C Screening (03/23/2019) [facility] Hepatitis C Screening Abstracted Historical Provider HEALTH MAINTENANCE Final Result from Last 3 Months or Most Recently Relevant to Health Maintenance Insurance [facility] MEDICARE Member Subscriber Plan / Payer (Ef fective 2018-Present) Name:KFOFI HERNÁNDEZ Relation to Subscriber:Self Name:Koffi Paez Payer ID:[id number] Group ID:[id number] Type:Not on file Address: [place] [address] [address] [id number] Care Teams Guest Experience Captain Relationship Specialty Start Date End Date Stefani Pressley MD 2 [facility] , [facility] [address] [facility] Associ D/B/A: [facility] MANDA Dahl PCP - General Internal Medicine 02/23/25
== END 2025-04-06 14:18 | disposition home or self-care (01) ==
LOC: HO.HMCH 13:38
PROVIDERS: PCP Internal Medicine; Visit Provider Internal Medicine
DX: Z13.9 Encounter for screening, unspecified (principal); J02.9 Acute pharyngitis, unspecified

== ENCOUNTER → 2025-04-06 13:37 | Outpatient (BNVA) | payer OTHER, SELFPAY | PROVIDERS: PCP Internal Medicine; Visit Provider Internal Medicine | DX: J02.9 Acute pharyngitis, unspecified (principal) | CPT/HCPCS: 87880; 96127; 99212 ==

== ENCOUNTER 2025-04-18 08:50 | Outpatient (AMB) | payer OTHER, SELFPAY ==
--- NOTE | 2025-04-18 09:06 | A.OFFVIS_ITS ---
Vital Signs 04/18/25 09:08 Height 5 ft 5 in Weight 188 lb BMI 31.3 Intake Visit Reasons: Follow Up Ingrown Toenail Intake Note: Koffi is a 29 year old male who presents today for a follow up on his biopsy results. Patient reports he currently using his ciclopirox medication as prescribed and he has seen a difference in his nails. He currently has no concerns at this time Director Business Intelligence Required: Yes Director Business Intelligence Services: Director Business Intelligence Present Director Business Intelligence Name: [id number] Allergies No Known Allergies (No Known Allergies*) Allergy (Verified 04/18/25 09:09) HPI HPI Follow Up Ingrown Toenail: Details: 29-year-old male with active medical history of meningioma, receiving immunotherapy since May 2024, seen today for 2 month follow up evaluation for left great toe partial nail avulsion and fungal toenails. Patient states he has been applying the topical ointment prescribed last visit every day. He has been seeing improvement in his nail discoloration. [facility] Surgical History History of meningioma History of hernia surgery History of appendectomy Family History Mother Hyperthyroidism Depression Mental health disorder Father Hypercholesterolemia Depression Mental health disorder Social History Housing: House Alcohol intake: never Patient Tobacco Use Status: Never used Tobacco e-Cigarette/Vaping Use: Never Used Second Hand Smoke Exposure: No service: No Current occupational status: disabled Cognitive needs: No Hearing needs: No Vision needs: Yes Review of Systems Const All systems reviewed & are unremarkable except as noted in HPI and below Physical Exam Vital Signs: BMI result Body Mass Index 31.3 Extrem Other: *Bilateral Lower Extremity Focused Exam Vascular: DP/PT 2/4, CFT<3s to digits, TG warm to cool, no pedal edema. Derm: No erythema no drainage, no clinical signs of infection. Lateral border left hallux with no remaining edema, no drainage, no erythema. No scab. Thickened discolored elongated toenails with subungual debris to left hallux and left 3rd digit. All nails are incurvated. Left hallux medial nail border is slightly ingrown. No erythema or clinical signs of infection. Neuro: Protective sensation grossly intact to bilateral lower extremities. MSK: No tenderness on palpation of the left hallux medial and lateral borders. Base of the lateral border of the left hallux appears completely healed. Office Procedures AMB Debridement /Avulsion Details: Procedure: Nail debridement Location: Bilateral feet, 10 nails Anesthesia: N/A Description: The affected toenails were cleansed with an antiseptic solution. Using sterile nail nippers and a rotary soham, dystrophic and mycotic nail material was carefully debrided and reduced in thickness. Care was taken to avoid trauma to the surrounding skin and nail bed. All debris was removed as tolerated. The area was inspected for signs of infection or ulceration. Patient tolerated the procedure well without complications. Tolerance: Patient tolerated procedure well, no immediate complications. The patient has a diagnosis of meningioma and presents with elongated, thickened toenails. He has multiple ingrown nails, one with recent infection that required multiple courses of antibiotic treatment and surgical excision. Due to underlying comorbidities, the patient is at increased risk for complications such as recurrent infection and difficulty with self-care. Debridement of elongated toenails is medically necessary to prevent development of pressure- related lesions, reduce risk of secondary infection, and maintain foot health in her high-risk comorbidities. 38513-[id number] of Nail 6+ Procedure code (CPT) selection complete Results Reviewed Results Reviewed: 02/23/25 nail specimen: Fungi are identified, supported by PAS stain. 02/23/25 nail culture: Sandra parapsilosis Assessment & Plan Assessment & Plan (1) Tinea unguium: Code(s): B35.1 - Tinea unguium Category: Medical Plan: * Reviewed nail biopsy results. * Continue ciclopirox for 1 more month * Follow up in 2 months (2) Paronychia of great toe, left: Comment: Lateral border left hallux Code(s): L03.032 - Cellulitis of left toe Category: Medical Plan: * Lateral border now resolved. Left hallux medial border mildly ingrown, nail was resected. * Discussed potential recurrence that could require partial nail avulsion and chemical matrixectomy. Recommended returning prior to infection occurring. (3) Meningioma: Code(s): D32.9 - Benign neoplasm of meninges, unspecified Category: Medical Plan: * All elongated, thickened, discolored toenails x 10 using a sterile nail nipper. The patient tolerated the procedure well with no complications. The nail specimens were sent for pathology and culture to evaluate for fungal elements. Class A findings as per physical exam findings above. The patient has a diagnosis of meningioma and presents with elongated, thickened toenails. He has multiple ingrown nails, 1 with recent infection that required multiple courses of antibiotic treatment and surgical excision. Due to underlying comorbidities, the patient is at increased risk for complications such as recurrent infection and difficulty with self-care. Debridement of elongated toenails is medically necessary to prevent development of pressure-related lesions, reduce risk of secondary infection, and maintain foot health in her high-risk comorbidities. Coding Level of Care Code Est Pt Level 3 (10334) Diagnoses Tinea unguium B35.1 Paronychia of great toe, left L03.032 Meningioma D32.9 Time Spent (min) 20
[2025-04-18 09:08] VITALS: BMI 31.3
--- OUTSIDE RECORDS SUMMARY | 2025-04-18 09:16 | XMS_ITS | Clinical Summary ---
Author Organization 175 [facility] Address [address] [place] [address] Phone Care Team Providers Care Senior Patient Account Representative Name Role Phone Stefani Pressley MD Primary Care Provider [phone] Allergies No known active allergies Medications blood-glucose [...] pressures remain consistently elevated at home. 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 Hyperlipidemia [...] 03/22/2025 10:40 AM EDT Office Visit [facility] [address] [phone] Alyssia Dennis NP Gastroesophageal reflux disease without esophagitis (Primary Dx); Gastritis determined by biopsy 03/02/2025 Telephone [facility] 175 [facility] [address] [phone] Alyssia Dennis NP 02/23/2025 10:27 AM EDT Anesthesia Event [facility] [address] [place] [phone] Rut Ness MD Hard, Shannon, CRNA 02/23/2025 9:16 AM EDT - 02/23/2025 11:59 PM EDT Hospital Encounter [facility] [address] [place] [phone] Slitzky, Keenan E, MD Hard, Zulma, LEGAL PROJECT MANAGER Lm, Klaus A, MD Epigastric abdominal pain; Gastroesophageal reflux disease without esophagitis Discharge Disposition: Home or Self Care 02/02/2025 10:00 AM EDT Office Visit [facility] [address] [facility] [address] [place] [address] Alyssia Dennis, FELICIA Epigastric abdominal pain (Primary Dx); Gastroesophageal reflux disease, unspecified whether esophagitis present 02/02/2025 Telephone [facility] [address] [facility] [address] [place] [address] Alyssia Dennis NP 01/29/2025 Telephone [facility] [address] 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 [address] [place] [address] Health Maintenance Due Date Last Done Comments [...] Maintenance Results * EGD Anesthesia - MAC; [facility] END[facility]COPY (02/23/2025 10:36 AM EDT) Anatomical [...] previously scheduled. Narrative 02/23/2025 10:37 AM EDT [facility] GI Patient Name: Koffi Moscoso Procedure Date: [...] was minimal. Procedure Code(s): --- Professional --- 29556, Esophagogastroduodenoscopy, flexible, transoral; with biopsy, single or multiple Diagnosis Code(s): --- Professional --- R12, Heartburn R10.13, Epigastric pain K21.9, Gastro-esophageal reflux disease without esophagitis CPT copyright 2020 [employer]. All rights reserved. The codes documented in this report are preliminary and upon retail advertising sales manager review may be revised to meet current compliance requirements. Keenan De La Cruz MD 02/23/2025 10:37:09 AM This report has been signed electronically.Keenan De La Cruz MD Number of Addenda: 0 Note Initiated On: 02/23/2025 10:16 AM Scope In: Scope Out: Endoscopy Department at [facility] - [address] [place] [phone] Procedure Note Keenan De La Cruz MD - 02/23/2025 [facility] GI Patient Name: Koffi Moscoso Procedure Date: [...] was minimal. Procedure Code(s): --- Professional --- 88556, Esophagogastroduodenoscopy, flexible, transoral; with biopsy, single or multiple Diagnosis Code(s): --- Professional --- R12, Heartburn R10.13, Epigastric pain K21.9, Gastro-esophageal reflux disease without esophagitis CPT copyright 2020 [employer]. All rights reserved. The codes documented in this report are preliminary and upon retail advertising sales manager reviewmay be revised to meet current compliance requirements. Keenan De La Cruz MD 02/23/2025 10:37:09 AM This report has been signed electronically.Keenan De La Cruz MD Number of Addenda: 0 Note Initiated On: 02/23/2025 10:16 AM Scope In: Scope Out: Endoscopy Department at [facility] - [address] [place] [phone] IMPRESSION: - Z-line regular, 40 cm from [...] reactive changes identified. 02/26/2025 10:28 AM EDT [facility] Gross Description A. Small Intestine, [...] one slide. CLINT 02/26/2025 10:28 AM EDT [facility] Disclaimer Unless otherwise specified, all tissue is 10% NB formalin fixed and paraffin embedded. 02/26/2025 10:28 AM EDT [facility] Tissue Duodenal structure / Unknown 02/23/2025 10:31 AM EDT 02/23/2025 12:36 PM EDT Tissue specimen (specimen) Pyloric antrum structure / Unknown 02/23/2025 10:32 AM EDT 02/23/2025 12:36 PM EDT us Keenan De La Cruz MD LAB PATHOLOGY ORDERABLES Tita bazan Result [facility] [address] [place] [address], * (ABNORMAL) Comprehensive metabolic panel (08/29/2024 7:48 [...] 73m2 LAB CHEMISTRY METHOD 08/29/2024 11:06 AM [facility] Comment:Calculation based on the Chronic [...] LAB CHEMISTRY METHOD 08/29/2024 11:06 AM EDT [facility] Total Protein 6.9 6.0 - 8.0 g/dL LAB CHEMISTRY METHOD 08/29/2024 11:06 AM EDT [facility] Albumin 4.3 3.2 - 5.0 g/dL LAB CHEMISTRY METHOD 08/29/2024 11:06 AM EDT [facility] Total Bilirubin 0.4 0.0 - 1.4 mg/dL LAB CHEMISTRY METHOD 08/29/2024 11:06 AM EDT [facility] Blood Venous blood specimen / Unknown Venipuncture / Unknown 08/29/2024 7:48 AM EDT 08/29/2024 10:16 AM EDT [place] [facility] BLOOD ORDERABLES Final Resu lt [facility] [address] [place] [address], * (ABNORMAL) Lipid panel with reflex to direct LDL (08/09/2024 7:56 AM EST) Cholesterol 234(H) 0 - 200 mg/dL LAB CHEMISTRY METHOD 08/09/2024 9:07 AM [facility] Triglycerides 253(H) 0 - 150 mg/dL LAB CHEMISTRY METHOD 08/09/2024 9:07 AM [facility] HDL 52 >=40 mg/dL LAB CHEMISTRY METHOD 08/09/2024 9:07 AM [facility] LDL Calculated 131(H) 0 - 100 mg/dL LAB CHEMISTRY METHOD 08/09/2024 9:07 AM [facility] VLDL Cholesterol Robert 50.6 mg/dL LAB CHEMISTRY METHOD 08/09/2024 9:07 AM [facility] Non HDL Chol. (LDL+VLDL) 182(H) <145 mg/dL LAB CHEMISTRY METHOD 08/09/2024 9:07 AM EST [facility] Chol/HDL Ratio 4.5(H) 0.0 - 4.4 LAB CHEMISTRY METHOD 08/09/2024 9:07 AM EST [facility] Blood Venous blood specimen / Unknown Venipuncture / Unknown 08/09/2024 7:56 AM EST 08/09/2024 8:34 AM EST us Rebecca Collazo MD LAB BLOOD ORDERABLES Final Res ult [facility] [address] [place] [address], [place] [phone] * Hepatitis C Screening (03/23/2019) Hepatitis C Screening Abstracted Historical Provider HEALTH MAINTENANCE Final Result from Last 3 Months or Most Recently Relevant to Health Maintenance Insurance [facility] MEDICARE Member Subscriber Plan / Payer (Ef fective 2018-Present) Name:KOFFI HERNÁNDEZ Relation to Subscriber:Self Name:Koffi Paez Payer ID:[id number] Group ID:[id number] Type:Not on file Address: [place] [address] [address] [address] Care Teams Senior Patient Account Representative Relationship Specialty Start Date End Date Stefani Pressley MD 2 [facility] , [facility] 101 [facility] D/B/A: [facility] MANDA Dahl PCP - General Internal Medicine 02/23/25
--- OUTSIDE RECORDS SUMMARY | 2025-04-18 09:17 | XMS_ITS | Data Portability ---
Author Organization [employer] [facility], [facility] Address [address] [place] [address] Care Team Providers Care Wash Rack Operator Name Role Phone HIM CCA OTHER EUSEBIO BARON Primary Care Provider Assessment Encounter Date Assessment Date Assessment LastModified by Organization Details LastModified Time 07/21/2024 07/21/2024 I provided real -time medical direction via phone for this encounter, and was available for additional phone based assistance as needed. I have reviewed and agree with the Assessment and Plan as documented by the Project Financial Analyst. We discussed the diagnostic uncertainty of home [...] call 911- they verbalized understanding of instruction Not available 07/21/2024 16:11:52 10/13/2024 10/13/2024 I provided real -time medical direction via phone for this encounter and was available for additional phone-based assistance as needed. I have reviewed and agree with the Assessment and Plan as documented by the Project Financial Analyst. Patient given the opportunity to ask questions. [...] same complaints. Everyone's symptoms are improving Per software configuration engineer on the scene, VSS, NAD, appears hydrated. Pain to palpation to left side of abd. Neg rebound per software configuration engineer . BMP was reviewed. Impression and plan: nausea and diarrhea. Differential diagnosis includes viral gastroenteritis given other family members are ill. Review of patient's and family members dietary history is less suggestive of food poisoning. Symptoms are are overall improving. Per software configuration engineer on the scene there is no concerning subjective or objective findings to warrant an emergent emergency room evaluation. Additionally the patient appears well hydrated to the software configuration engineer on the scene and is not orthostatic. [...] BMP, serum or plasma 2024 025 BRYAN [facility], [address] [place] [address], [phone] 5 12:36:52 rapid flu (A+B) 2024 025 [email or web address] 0 [facility], [address] [place] [address], [phone] 5 11:17:03 rapid SARS CoV 2 Ag, QL IA, respiratory specimen 2024 025 [email or web address], [phone] 5 11:10:03 Referral None recorded. Procedures None recorded. Surgeries None recorded. Imaging None recorded. Medication Orders azithromyci n 250 mg tablet 2024 025 [email or web address] 0 [facility], [address] [place], [address], 5 11:09:26 benzonatate 100 mg capsule 2024 025 [email or web address] 0 [facility], [address] [place], [address], 5 11:09:26 azithromyci n 250 mg tablet 2024 025 [email or web address] 0 [facility], [address] [place], [address], 5 16:12:47 benzonatate 200 mg capsule 2024 025 BRYAN [facility], [address] [place], [address], 5 11:19:20 Saline Nasal Mist 0.65 % spray aerosol 2024 025 BRYAN [facility], [address] [place], [address], 5 11:19:20 Patient TargetsNo targets recorded. Patient InstructionsNo instructions recorded. Reason for Referral None Reported. Results Created Date Observation Date Name Description Value Unit Range Abnormal Flag Note LastModifiedBy Organization Detail LastModifiedTime 07/21/1907/21/2024 rapid SARS CoV 2 Ag, QL IA, respi rator y speci men rapid SARS CoV 2 Ag, QL IA, respiratory specimen negati ve Not Available [facility] [address] [place] [address], [phone] 07/21/2024 11:09:43 07/21/19 25 07/21/2024 rapid flu (A+B) Flu negati ve Not Available Main - [facility] ed [address] [place] [address], [phone] 07/21/2024 11:09:38 Result Notes None recorded. Medical [...] Not Available No t Available Artificial Tears (be763-wyeir hannah-glyceri n) 1 %-0.2 %-0.2 % eye [...] [degF] 94 /min 136/88 mm[Hg] Not Available [employer] 5 11:06:38 Date Recorded Heart rate Respiratory rate Body temperature Oxygen saturation Oxygen saturation in Arterial blood by Pulse oximetry Systolic And Diastolic Provider Name and Address Organization Details Last Updated DateTime 5 86 /min 18 /min 97.3 [degF] 96 % 96 % 142/95 mm[Hg] Not Available [employer] 5 09:43:39 Social History None recorded. Functional Status None recorded. Mental Status None recorded. Family History Nothing Reported. Medical History No medical history recorded. Past Encounters Encounter ID Performer Location Encounter Start Date Encounter Closed Date Diagnosis/Indication Diagnosis SNOMED-CT Code Diagnosis ICD10 Code Diagnosis IMO Codes Diagnosis Note [id number] Kellie Lennon MD [facility] - [facility] [address] [place] [phone] 07/21/2024 11:06:36 07/22/2024 09:43:11 Upper respiratory infection 32612210 J06.9 possible sinusitis- where patient is immune [...] mother verbalized understand ing to the medic [id number] Pat Hernandez MD Main - [facility] [address] [place] [phone] 10/13/2024 09:43:34 10/13/2024 19:23:30 Nausea and vomiting 97105829 R11.2 [id number] Health Concerns Section Related Observation LastModified by Organization Detai ls LastModified Time None Recorded Concern Status LastModified by Organization Details LastModified Time None Recorded Advance Directives Directive None Recorded Payers Insurance Date Sequence Insurance Name Policy Number Policy Bell Covered Member ID Bell Member ID Guarantor Name 10/13/2024 1 [facility] - DOS ON OR AFTER 2022 - DUAL ELIGIBLE - [facility] OPTIONS AND ONE CARE (MEDICARE REPLACEMENT/ADV ANTAGE - HMO) Koffi Lee ra [id number] Koffi De León Notes Date Note Type [...] other symptoms. AAKASH is congested-sounding to this mortgage or loan underwriter, but no stridor or wheezing could be [...] so if necessary. This call originated from [phone]. ...................... ...................... ...................... ...................... ...................... ...................... ......... CRC Nurse Triage Notes (Socorro Cronin - RN): Chief Complaints: Common cold symptoms, Cough, Fatigue, Fever/chills, Headache, Weakness PMH: Anxiety Disorder, Chronic Pain, Gastroesophageal Reflux Disease (GERD), Hyperlipidemia, Hypertension, Obesity PMH Reviewed at 07/21/2024:08 Allergies Reviewed at 07/21/2024 - :08 Comments: HPI reviewed- NE Project Financial Analyst Organization Information for Kurt Oneal Business Legal Name: [employer] Address: [address] [place] [id number], Country Director: Joey Blackwell MD [facility] No.: [id number] Project Financial Analyst POC Test Results from Kurt Oneal - ALS Rapid COVID antigen (10:56:54) COVID: - Rapid influenza antigen (10:56:55) Flu: - ...................... ...................... ...................... ...................... ...................... ...................... ......... Project Financial Analyst Note From Kurt Oneal: Dispatched to the [...] - facial/sinus tenderness, Afebrile, Rapid coivd/flu (-). [facility] consulted. Pt given 200mg Benzonatate and 500mg Azithromycin PO. Scripts called into preferred pharmacy. Red flags discussed. ALL times are approx. [facility] Lab Orders: rapid flu (A+B): Performed rapid SARS CoV 2 Ag, QL IA, respiratory specimen: Performed [facility] Medication Orders: azithromycin 250 mg tablet: Administered benzonatate 100 mg capsule: Administered ...................... ...................... ...................... ...................... ...................... ...................... ......... [facility] Consulted: Kellie Lennon ...................... ...................... ...................... ...................... ...................... ...................... ......... Disposition: Fulfilled Kellie Lennon MD [address] [place] [address],[address] [facility], [place], [address] [employer] 07/21/2024 16:13:27 10/13/2024 text/html CRC Nurse Triage [...] (GERD), Hyperlipidemia, Hypertension, ObesityPMH Reviewed at 10/13/2024 08:43[facility] Reviewed at 10/13/2024:43Pain Assessment: Level null out [...] signs of when to seek emergency care. Project Financial Analyst Organization Information for Enrique Crow [employer] Legal Name: [facility] Transportation Address: [address] [place] [address], [place] [address], Country Director: Jhon Motley MD CLIA No.: [id number] Project Financial Analyst POC Test Results from Enrique Crow [employer] [facility] (09:55:12) pH: 7.362 pH units pCO2: 50.2 mmHg pO2: 29.7 mmHg Na: 146 mmol/L K: 3.9 mmol/L iCa: 1.20 mmol/L Cl: 107 mmol/L TCO2: 27.8 mEq/L Hct: 46 % Hb: 15.6 g/dL Glu: 80 mg/dL Lac: 1.21 mmol/L Cr: 0.93 mg/dL BUN: 12.6 mg/dL A mmol/L HCO3: 28.5 mmol/L ...................... ...................... ...................... ...................... ...................... ...................... ......... Project Financial Analyst Note From Enrique Crow: Arrived to find patient ambulating in the residence. Patient aox4 GCS 15 skin pink warm and dry n patient has been endorsing vomiting abdominal pain and diarrhea since Wednesday. Patient a stated that he has been having diarrhea approximately 7 days. Patient able to tolerate PO intake. VS as noted. Afebrile. [facility] contacted and advised blood work. Patient blood work obtained as noted. Patient abdomen tender to left side. [facility] and provider advised if he has increased pain to go to hospital for evaluation for diverticulitis. Patient in agreement [facility] Lab Orders: BMP, serum or plasma: Performed ...................... ...................... ...................... ...................... ...................... ...................... ......... [facility] Consulted: Pat Hernandez ...................... ...................... ...................... ...................... ...................... ...................... ......... Disposition: Andrea Hernandez MD [address] [facility],[address], [place], [address], JONH NUNEZ 10/13/2024 12:35:13
== END 2025-04-18 09:29 | disposition home or self-care (01) ==
LOC: HO.HPODS 08:51
PROVIDERS: PCP Internal Medicine; Visit Provider Student in an Organized Health Care Education/Training Program
DX: B35.1 Tinea unguium (principal); L03.032 Cellulitis of left toe; D32.9 Benign neoplasm of meninges, unspecified
CPT/HCPCS: 99213

== ENCOUNTER → 2025-04-18 08:50 | Outpatient (BNVA) | payer OTHER, SELFPAY | PROVIDERS: PCP Internal Medicine; Visit Provider Student in an Organized Health Care Education/Training Program | DX: B35.1 Tinea unguium (principal); L03.032 Cellulitis of left toe; D32.9 Benign neoplasm of meninges, unspecified | CPT/HCPCS: 99212 ==

== ENCOUNTER 2025-05-22 10:09 | Outpatient (REF) | payer OTHER, SELFPAY ==
--- OUTSIDE RECORDS SUMMARY | 2025-05-22 12:34 | XMS_ITS | Clinical Summary ---
Author Organization [address] [facility] Address [address] [place] [address] Phone Care Team Providers Care Stabilizing Machine Operator Name Role Phone Stefani Pressley MD Primary Care Provider [phone] Allergies No known active allergies Medications blood-glucose meter kit 1 Each by Does not apply route daily. 03/13/2024 Active ONETOUCH ULTRASOFT LANCETS MISC Use daily to check blood sugars. 03/13/2024 Active hydrOXYzine HCL (ATARAX) 10 mg tablet Take 1 Tablet by mouth every 6 hours as needed for Itching. 03/13/2024 Active p.glycol algin/polysorba sabra ( [employer] TOP) 3 Packages by Does not apply route continuous. 03/13/2024 Active OneTouch Ultra Test test strip USE TO TEST 1 TIME DAILY 100 strip 1 10/09/2024 Active BEVACIZUMAB IV Infuse into a venous catheter. Q 21 days Active PEMBROLIZUMAB IV Infuse into a venous catheter. Q 21 days Active LevoxyL 50 mcg tablet Take 1 tablet (50 mcg total) by mouth 1 (one) time each day before breakfast. 01/15/2025 Active meclizine (ANTIVERT) 25 mg tablet 09/11/2024 Active simvastatin (ZOCOR) 40 mg tablet TAKE 1 TABLET BY MOUTH ONCE DAILY 30 tablet 1 03/05/2025 Active fenofibrate (LOFIBRA) 54 mg tablet TAKE 1 TABLET BY MOUTH ONCE DAILY 30 tablet 1 03/05/2025 Active lisinopriL (PRINIVIL,ZESTR IL) 5 mg tablet TAKE 1 TABLET BY MOUTH ONCE DAILY 30 tablet 1 03/05/2025 Active cholecalciferol (VITAMIN D-3) 50 mcg (2,000 unit) tablet TAKE 1 TABLET BY MOUTH ONCE DAILY 30 tablet 1 03/05/2025 Active pantoprazole (PROTONIX) 40 mg EC tablet TAKE 1 TABLET BY MOUTH ONCE DAILY 30 tablet 1 03/05/2025 Active amoxicillin (AMOXIL) 875 mg tablet 02/09/2025 Active ciclopirox (LOPROX) 0.77 % suspension 02/22/2025 Active meloxicam (MOBIC) 15 mg tablet 02/26/2025 Active prochlorperazin e (COMPAZINE) 10 mg tablet Active cyanocobalamin (VITAMIN B-12) 500 mcg tablet TAKE 1 TABLET BY MOUTH ONCE DAILY 30 tablet 04/02/2025 Active Active Problems Problem Noted Date Diagnosed Date Mild intellectual disability 03/16/2025 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oscopy [address] [place] [phone] Rut Ness MD Hard, Shannon, CRNA 02/23/2025 9:16 AM EDT - 02/23/2025 11:59 PM EDT Hospital Encounter [facility] [address] [place] [address] Keenan De La Cruz MD Hard, Shannon, CRNA Spencer, Mark A, MD Epigastric abdominal pain; Gastroesophageal reflux disease without esophagitis Discharge Disposition: Home or Self Care from Last 3 Months Immunizations Immunization Administration Dates Next Due Influenza Quadravalent, MDCK , 0.5ml, preservative free (Flucelvax) 6mo and older 03/08/2020,04/11/2019 Moderna SARS-CoV-2 COVID-19, mRNA, LNP-S, preservative free 10/30/2020 Surgical History Surgery Date Site/Laterality Comments APPENDECTOMY PROCEDURE: TX APPENDECTOMY FOOT SURGERY PROCEDURE: TX UNLISTED PROCEDURE FOOT/TOES HERNIA REPAIR PROCEDURE: HISTORICAL HERNIA REPAIR/ING Medical History Medical History Date Comments 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 Hypermelanosis DX:Hypermelanosi s; COMMENT: hypermelanosis of [place] CAROLINE (juvenile idiopathic art hritis) (CMS/HCC V24, CMS/HCC V28) DX:CAROLINE (juvenile idiopathic arthritis) (HCC) Vision disturbance DX:Vision dis turbance Alopecia DX:Alopecia [...] Orientation Straight 02/23/2025 9: 14 AM EDT Last Filed Vital Signs Vital Sign Reading [...] Office Visit Gastroenterology - [address] [facility] [address] [place] [phone] Alyssia Dennis NP [address] [facility] [address] [place] [address] Health Maintenance Due Date Last Done Comments [...] Maintenance Results * EGD Anesthesia - MAC; [facility] ENDOSCOPY (02/23/2025 10:36 AM EDT) Anatomical [...] previously scheduled. Narrative 02/23/2025 10:[address] [facility] GI Patient Name: Koffi Moscoso Procedure Date: [...] was minimal. Procedure Code(s): --- Professional --- 84689, Esophagogastroduodenoscopy, flexible, transoral; with biopsy, single or multiple Diagnosis Code(s): --- Professional --- R12, Heartburn R10.13, Epigastric pain K21.9, Gastro-esophageal reflux disease without esophagitis CPT copyright 2020 [employer]. All rights reserved. The codes documented in this report are preliminary and upon tanning drum operator review may be revised to meet current compliance requirements. Keenan De La Cruz MD 02/23/2025 10:37:09 AM This report has been signed electronically.Keenan De La Cruz MD Number of Addenda: 0 Note Initiated On: 02/23/2025 10:16 AM Scope In: Scope Out: Endoscopy Department at [facility] - [address] [place] [phone] Procedure Note Keenan De La Cruz MD - 02/23/[address] [facility] GI Patient Name: Koffi Moscoso Procedure Date: [...] was minimal. Procedure Code(s): --- Professional --- 40756, Esophagogastroduodenoscopy, flexible, transoral; with biopsy, single or multiple Diagnosis Code(s): --- Professional --- R12, Heartburn R10.13, Epigastric pain K21.9, Gastro-esophageal reflux disease without esophagitis CPT copyright 2020 [employer]. All rights reserved. The codes documented in this report are preliminary and upon tanning drum operator reviewmay be revised to meet current compliance requirements. Keenan De La Cruz MD 02/23/2025 10:37:09 AM This report has been signed electronically.Keenan De La Cruz MD Number of Addenda: 0 Note Initiated On: 02/23/2025 10:16 AM Scope In: Scope Out: Endoscopy Department at [facility] - [address] [place] [phone] IMPRESSION: - Z-line regular, 40 cm from [...] reactive changes identified. 02/26/2025 10:28 AM EDT [facility] at 1028 EDT Gross Description A. Small Intestine, Duodenum, biopsies: [...] three pieces, multiple levels on one slide. CILNT 02/26/2025 10:28 AM EDT [facility] Disclaimer Unless otherwise specified, all tissue is 10% NB formalin fixed and paraffin embedded. 02/26/2025 10:28 AM T [facility] Tissue Duodenal structure / Unknown 02/23/2025 10:31 AM EDT 02/23/2025 12:36 PM EDT Tissue specimen (specimen) Pyloric antrum structure / Unknown 02/23/2025 10:32 AM EDT 02/23/2025 12:36 PM EDT us Keenan De La Cruz MD LAB PATHOLOGY ORDERABLES Tita bazan Result [facility] [address] [place] [address], [place] [phone] * (ABNORMAL) Comprehensive metabolic panel (08/29/2024 7:48 AM EDT) Sodium 143 133 - 145 mmol/L LAB CHEMISTRY METHOD 08/29/2024 11:06 AM [facility] Potassium 4.1 3.5 - 5.5 mmol/L LAB CHEMISTRY METHOD 08/29/2024 11:06 AM [facility] Chloride 108 96 - 110 mmol/L LAB CHEMISTRY METHOD 08/29/2024 11:06 AM [facility] CO2 27 21 - 32 mmol/L LAB CHEMISTRY METHOD 08/29/2024 11:06 AM [facility] Anion Gap 8 3 - 11 LAB CHEMISTRY METHOD 08/29/2024 11:06 AM [facility] Glucose 87 70 - 100 mg/dL LAB CHEMISTRY METHOD 08/29/2024 11:06 AM [facility] BUN 14 5 - 25 mg/dL LAB CHEMISTRY METHOD 08/29/2024 11:06 AM [facility] Creatinine 1.16 0.70 - 1.30 mg/dL LAB CHEMISTRY METHOD 08/29/2024 11:06 AM [facility] eGFR 87 >=60 mL/min/1. 73m2 LAB CHEMISTRY METHOD 08/29/2024 11:06 AM [facility] Comment:Calculation based on the Chronic Kidney Disease Epidemiology Collaboration (CKD-EPI) equation refit without adjustment for race. BUN/Creatinine Ratio 12.1 LAB CHEMISTRY METHOD 08/29/2024 11:06 AM [facility] Calcium 9.6 8.5 - 10.5 mg/dL LAB CHEMISTRY METHOD 08/29/2024 11:06 AM [facility] AST (SGOT) 48(H) 10 - 42 unit/L LAB CHEMISTRY METHOD 08/29/2024 11:06 AM [facility] ALT (SGPT) 106(H) 10 - 60 unit/L LAB CHEMISTRY METHOD 08/29/2024 11:06 AM [facility] Alkaline Phosphatase 73 42 - 121 unit/L LAB CHEMISTRY METHOD 08/29/2024 11:06 AM [facility] Total Protein 6.9 6.0 - 8.0 g/dL LAB CHEMISTRY METHOD 08/29/2024 11:06 AM [facility] Albumin 4.3 3.2 - 5.0 g/dL LAB CHEMISTRY METHOD 08/29/2024 11:06 AM [facility] Total Bilirubin 0.4 0.0 - 1.4 mg/dL LAB CHEMISTRY METHOD 08/29/2024 11:06 AM [facility] Blood Venous blood specimen / Unknown Venipuncture / Unknown 08/29/2024 7:48 AM EDT 08/29/2024 10:16 AM EDT [place] [facility] BLOOD ORDERABLES Final Resu lt [facility] [address] [place] [address], * (ABNORMAL) Lipid panel with reflex to direct LDL (08/09/2024 7:56 AM EST) Cholesterol 234(H) 0 - 200 mg/dL LAB CHEMISTRY METHOD 08/09/2024 9:07 AM [facility] Triglycerides 253(H) 0 - 150 mg/dL LAB CHEMISTRY METHOD 08/09/2024 9:07 AM [facility] HDL 52 >=40 mg/dL LAB CHEMISTRY METHOD 08/09/2024 9:07 AM [facility] LDL Calculated 131(H) 0 - 100 mg/dL LAB CHEMISTRY METHOD 08/09/2024 9:07 AM [facility] VLDL Cholesterol Robert 50.6 mg/dL LAB CHEMISTRY METHOD 08/09/2024 9:07 AM [facility] Non HDL Chol. (LDL+VLDL) 182(H) <145 mg/dL LAB CHEMISTRY METHOD 08/09/2024 9:07 AM [facility] Chol/HDL Ratio 4.5(H) 0.0 - 4.4 LAB CHEMISTRY METHOD 08/09/2024 9:07 AM [facility] Blood Venous blood specimen / Unknown Venipuncture / Unknown 08/09/2024 7:56 AM EST 08/09/2024 8:34 AM EST Rebecca Collazo MD LAB BLOOD ORDERABLES Final Res ult [facility] [address] [place] [address], * Hepatitis C Screening (03/23/2019) Pathologist [facility] Hepatitis C Screening Abstracted Historical Provider HEALTH MAINTENANCE Final Result from Last 3 Months or Most Recently Relevant to Health Maintenance Insurance [facility] MEDICARE Member Subscriber Plan / Payer (Ef fective 2018-Present) Name:KOFFI HERNÁNDEZ Relation to Subscriber:Self Name:Koffi Paez Payer ID:[id number] Group ID:[id number] Type:Not on file Address: [facility] [place] [address] [address] Care Teams Stabilizing Machine Operator Relationship Specialty Start Date End Date Stefani Pressley MD [address] [facility] , [address] [facility] D/B/A: [facility] MANDA Dahl PCP - General Internal Medicine 02/23/25
[2025-05-22 12:39] LABS: Free T4 (Free Thyroxine) 1.00 ng/dL (0.71-1.85)
== END 2025-05-22 10:10 | disposition home or self-care (01) ==
LOC: HO.LAB 10:09
PROVIDERS: Absent Provider Student in an Organized Health Care Education/Training Program
DX: E03.2 Hypothyroidism due to medicaments and other exogenous substances (principal); Z01.84 Encounter for antibody response examination
CPT/HCPCS: 36415; 84439; 84443; 86376

== ENCOUNTER 2025-05-25 09:30 | Outpatient (AMB) | payer OTHER, SELFPAY ==
--- NOTE | 2025-05-25 09:33 | A.OFFVIS_ITS ---
Vital Signs 3 05/25/25 09:35 Height 5 ft 5 in Weight 189 lb 9.561 oz BMI 31.5 BP 120/80 Blood Pressure Location Rt brachial Position Sitting Pulse 76 Pulse Source Pulse Oximeter Pulse Oximetry (%) 96 Oxygen Delivery Method Room Air Intake Visit Reasons: Disorder of thyroid, unspecified Intake Note: Patient presents here today for Disorder of Thyroid follow-up after completion of work-up. * Thyroid Function Tests: Labs completed on 05/22/2025 Event Staff Member Required: Yes Event Staff Member Language: Hull Grinder Services: Event Staff Member Offered & Declined (DR. Lyon Speak Fluent Senegalese) Accompanied by: Mother Allergies No Known Allergies (No Known Allergies*) Allergy (Verified 05/25/25 09:35) HPI Comments Details: 29 yo male with PMH of ?HTN, Mixed hyperlipidemia, GODFREY, Rheumatoid arthritis, Meningioma with residual disease and GERD, seen in our office for new evaluation of hypothyroidism. Patient reports that he has been receiving pembrolozumab/bevacizumab since May 2024 for residual meningioma. Around 2 months ago he was diagnosed with hypothyroidism, initially started on Levothyroxine but developed side effects (nausea, dizziness), then transitioned to Levoxyl 50 mcg which he is taking early in the AM, separate from other foods and other meds. He never forgets to take it. He reports that per his neuro-oncologist, he will likely be on the current infusion for year, and based on imaging, would consider decreasing the dose in the 6 months followign that 1 year. Interval history: Taking levothyroxin 50mg, on empty stomach No changes in other medications but TSH was elevated after his last chemotherapy (pembrolozumab/bevacizumab) He otherwise feels well Denies symptoms concerning for hypothyroidism Good energy Physical exam: General: Well appearing. NAD. Not Cushingoid or Acromegalic Neck/Thyroid: Thyroid not palpable, no nodules. CV: RRR, no murmur. No edema. Resp:Lungs clear to auscultation bilaterally Abdomen: Soft, nontender. nondistended Extremities/Neuro: No weakness or tremor of outstretched hands Diabetic Foot Exam: sensation to monofilament exam Labs: Laboratory Tests 11/06/24 03/23/25 05/22/25 07:49 08:01 10:18 TSH 3.46 11.02 H Free T4 1.08 1.00 Thyroid Peroxidase Ab <1 1 Most recent TSH from 02/12/25 (pt showed in the phone): 5.04 PFSH Surgical History History of meningioma History of hernia surgery History of appendectomy Family History Mother Hyperthyroidism Depression Mental health disorder Father Hypercholesterolemia Depression Mental health disorder Social History Housing: House Alcohol intake: never Patient Tobacco Use Status: Never used Tobacco e-Cigarette/Vaping Use: Never Used Second Hand Smoke Exposure: No service: No Current occupational status: disabled Cognitive needs: No Hearing needs: No Vision needs: Yes Physical Exam Vital Signs: Last Vital Signs Pulse 76 05/25/25 09:35 BP 120/80 05/25/25 09:35 Pulse Ox 96 05/25/25 09:35 Oxygen Delivery Method Room Air 05/25/25 09:35 BMI result Body Mass Index 31.5 Assessment & Plan Assessment & Plan (1) Drug-induced hypothyroidism: Comment: Primary hypothyroidism 2/2 Pembrolozumuab/ Bevacizumab Code(s): E03.2 - Hypothyroidism due to medicaments and other exogenous substances Category: Medical Plan: Assesessment: Primary hypothyroidism 2/2 Pembrolozumuab/ Bevacizumab There is consistent history of Pembrolozumuab/ Bevacizumab and the timing of development follows a reasonable timing to assume the medications are the most likely causative agent. He also reported initial symptoms of hyperthyroidism which is consistent with the initial thyroiditis phase usually seen in this medications when thyroid is affected. He does have family history of hypothyroidism in mother and thyroid cancer in aunt. - The current dose of levothyroxine 50 mcg is insufficient, as evidenced by the elevated TSH levels. - Increase levothyroxine dose to 75 mcg daily. - Counseled on the importance of waiting at least six weeks before repeating thyroid function tests to allow for the medication to take full effect. Advised that earlier testing may not be reliable due to physiological fluctuations in hormone levels during dose adjustment. - Plan to repeat thyroid function tests in six weeks (around early July). - Advised that significant weight loss could affect levothyroxine requirements, but minor fluctuations like two pounds are unlikely to have a significant impact. - Counseled on symptoms of hyperthyroidism (e.g., palpitations, anxiety, hand tremors) and instructed to report these if they occur, as this would necessitate a dose reduction. - Follow up in 3 months Plan 25 minutes spent reviewing previous records, labs, imaging, education and documenting in the chart Orders: Orders 2 TSH reflex Free T4 6 Weeks E03.2 - Hypothyroidism due to medicaments and other exogenous substances Medications: New 2 levothyroxine (Levoxyl) 75 mcg PO DAILY 30 tabs 3RF Discontinued 2 Levoxyl (levothyroxine) Discontinued Reason: Doctor's Order 50 mcg PO DAILY 90 days 90 tabs 0RF NS Coding Level of Care Code Est Pt Level 3 (12045) Add On Problem Visit Only Diagnoses Drug-induced hypothyroidism E03.2
[2025-05-25 09:35] VITALS: BP 120/80; PULSE 76; O2SAT 96; BMI 31.5
--- OUTSIDE RECORDS SUMMARY | 2025-05-25 10:14 | XMS_ITS ---
Author Name Olga Lidia Yañez Address Unknown Organization [facility] Care Team Providers Care Driller Machine Name Role Phone Unavailable Primary Care Physician Unavailab le History Of Present Illness This is a 30 year old male who is a new patient who is being seen for a chief complaint of a skin lesion.Location: faceQuality: asymptomatic and redDuration: yearsTreatment Status: has not been treatedReason for Visit: evaluation and managementPertinent Negatives: no history of previous skin cancer, no history of squamous cell carcinoma, no family history of melanoma, and no family history of non-melanoma skin cancer Medications Medication Generic Name RxNorm Strength Strength Unit Route Dose Dose Form Frequency Date Started Date Ended Status Indication Sig metronidazo le metronid azole 662684 0.75 % Topica l gel 05/24/20 25 active Appl y a thin laye r to face twic e deja y fenofibrate fenofibr ate 54 mg Oral 1 table t qd active lisinopril lisinopr il 5 mg Oral 1 table t qd active simvastatin simvasta tin 40 mg Oral 1 table t qd active Problems Problem Code Type Status Date of Diagnosis Da te of Resolution Complication of procedure (disorder) 403178472(SN OMED) Diagnosis active 05/24/2025 Results No data Encounters Service provided at [address], [address], [place], [place] [id number]. Office phonenumber is [phone]. Office fax number is [phone]. Encounter Diagnosis Location Date / Time Type Disc harge Status Other complications followin g infusion, transfusion and therapeutic injection, initial encounter (T80.89XA) [facility] 05/24/2025 15:50:00 [facility] [id number] Reason For Referral No data Procedures Procedure Date Documentation of past medical history (p rocedure) Documentation of past medical history (p rocedure) Review Of Systems Provider reviewed on May 24, 2025.A focused review of systems was performed including Integumentaryand was notable for problems with scarring (hypertrophic or keloid).No Problems With Healing. Assessment 1.Other complications following infusion, transfusion and therapeutic injection, initial encounterPrescription Medication Management: Plan - : - Pt reports the redness on his face and extremities started after infusions. - The patient has a history of meningioma and currently receiving bevacizumab-awwb (mvasi) and keytruda infusions- Patient's mother reports no significant issues with hypomelanosis of [place] except large white spots on legs Plan:Will treat the patient as more of a rosacea for his face to help with redness. Will refrain from any topicals for the trunk or extremities unless he hascomplaints of pruritus, then will send TAC.Rx today:1. Metronidazole 0.75 % topical gel, apply a thin layer to the face twice daily.FU in 3 months for reassessment;.Photo-Documentation:.Prescription:metronidazole 0.75 % topical gel TPMedication Counseling Plan of Care Future visit for 08/16/2025 - Follow up in 3 months for: Focused Visit - 10 minutes. Other Instructions: Recheck face. Other Instructions: Recheck face. Code Detail Instructions [id number] metronidazole 0.75 % topical gel Apply a thin layer to face twice daily Instructions * Topical Metronidazole Counseling: Metronidazole is a topical antibiotic medication. You may experience burning, stinging, redness, or allergic reactions. Please call our office if you develop any problems from using this medication. Social History Code Activity Start Date End Date [id number] (SNOMED) Unknown if ever smoked Sex Male Sexual orientation Don't Know Gender identity Unspecified Vital Signs No data Insurances Coverage Status Coverage Type Relationship to Subscriber Member Identifier Subscriber Identifier Group Identifier Payer Identifier Active Self [id number] [facility] [id number]
--- OUTSIDE RECORDS SUMMARY | 2025-05-25 10:14 | XMS_ITS | Clinical Summary ---
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 03/02/2025 Telephone Gastroenterology [facility] [address] [phone] Alyssia Dennis NP 02/23/2025 10:27 AM EDT Anesthesia Event [facility] [address] [place] [phone] Rut Ness MD Hard, Shannon, CRNA 02/23/2025 9:16 AM EDT - 02/23/2025 11:59 PM EDT Hospital Encounter [facility] [address] [place] [phone] Keenan De La Cruz MD Hard, Shannon, [...] History Surgery Date Site/Laterality Comments APPENDECTOMY PROCEDURE: CA APPENDECTOMY FOOT SURGERY PROCEDURE: CA UNLISTED PROCEDURE FOOT/TOES HERNIA REPAIR PROCEDURE: HISTORICAL [...] Office Visit Gastroenterology - [address] [facility] [address] [place] [phone] Alyssia Dennis NP [address] [facility] [address] [place] [address] Health Maintenance Due Date Last Done Comments [...] Maintenance Results * EGD Anesthesia - MAC; [facility] (02/23/2025 10:36 AM EDT) Anatomical [...] previously scheduled. Narrative 02/23/2025 10:37 AM EDT [facility] GI Patient Name: Koffi Moscoso Procedure Date: [...] was minimal. Procedure Code(s): --- Professional --- 68382, Esophagogastroduodenoscopy, flexible, transoral; with biopsy, single or multiple Diagnosis Code(s): --- Professional --- R12, Heartburn R10.13, Epigastric pain K21.9, Gastro-esophageal reflux disease without esophagitis CPT copyright 2020 [employer]. All rights reserved. The codes documented in this report are preliminary and upon safety admin assistant review may be revised to meet current compliance requirements. Keenan De La Cruz MD 02/23/2025 10:37:09 AM This report has been signed electronically.Keenan De La Cruz MD Number of Addenda: 0 Note Initiated On: 02/23/2025 10:16 AM Scope In: Scope Out: Endoscopy Department at [facility] - [address] [place] [phone] Procedure Note Keenan De La Cruz MD - 02/23/2025 [facility] GI Patient Name: Koffi Moscoso Procedure Date: [...] was minimal. Procedure Code(s): --- Professional --- 08299, Esophagogastroduodenoscopy, flexible, transoral; with biopsy, single or multiple Diagnosis Code(s): --- Professional --- R12, Heartburn R10.13, Epigastric pain K21.9, Gastro-esophageal reflux disease without esophagitis CPT copyright 2020 [employer]. All rights reserved. The codes documented in this report are preliminary and upon safety admin assistant reviewmay be revised to meet current compliance requirements. Keenan De La Cruz MD 02/23/2025 10:37:09 AM This report has been signed electronically.Keenan De La Cruz MD Number of Addenda: 0 Note Initiated On: 02/23/2025 10:16 AM Scope In: Scope Out: Endoscopy Department at [facility] - [address] [place] [phone] IMPRESSION: - Z-line regular, 40 cm from [...] reactive changes identified. 02/26/2025 10:28 AM EDT [facility] at 1028 EDT Gross Description A. [...] one slide. [place] 02/26/2025 10:28 AM EDT [facility] Disclaimer Unless otherwise specified, all tissue is 10% NB formalin fixed and paraffin embedded. 02/26/2025 10:28 AM T [facility] Tissue Duodenal structure / Unknown 02/23/2025 10:31 AM EDT 02/23/2025 12:36 PM EDT Tissue specimen (specimen) Pyloric antrum structure / Unknown 02/23/2025 10:32 AM EDT 02/23/2025 12:36 PM EDT us Keenan De La Cruz MD LAB PATHOLOGY ORDERABLES Tita bazan Result [facility] [address] [place] [address], [place] [phone] * (ABNORMAL) Comprehensive metabolic panel (08/29/2024 7:48 AM EDT) Sodium 143 133 - 145 mmol/L LAB CHEMISTRY METHOD 08/29/2024 11:06 AM [facility] Potassium 4.1 3.5 - 5.5 mmol/L LAB CHEMISTRY METHOD 08/29/2024 11:06 AM [facility] Chloride 108 96 - 110 mmol/L LAB CHEMISTRY METHOD 08/29/2024 11:06 AM [facility] CO2 27 21 - 32 mmol/L LAB CHEMISTRY METHOD 08/29/2024 11:06 AM [facility] Anion Gap 8 3 - 11 LAB CHEMISTRY METHOD 08/29/2024 11:06 AM [facility] Glucose 87 70 - 100 mg/dL LAB CHEMISTRY METHOD 08/29/2024 11:06 AM [facility] BUN 14 5 - 25 mg/dL LAB CHEMISTRY METHOD 08/29/2024 11:06 AM [facility] Creatinine 1.16 0.70 - 1.30 mg/dL LAB CHEMISTRY METHOD 08/29/2024 11:06 AM [facility] eGFR 87 >=60 mL/min/1. 73m2 LAB CHEMISTRY METHOD 08/29/2024 11:06 AM [facility] Comment:Calculation based on the Chronic Kidney Disease Epidemiology Collaboration (CKD-EPI) equation refit without adjustment for race. BUN/Creatinine Ratio 12.1 LAB CHEMISTRY METHOD 08/29/2024 11:06 AM [facility] Calcium 9.6 8.5 - 10.5 mg/dL LAB CHEMISTRY METHOD 08/29/2024 11:06 AM [facility] AST (SGOT) 48(H) 10 - 42 unit/L LAB CHEMISTRY METHOD 08/29/2024 11:06 AM [facility] ALT (SGPT) 106(H) 10 - 60 unit/L LAB CHEMISTRY METHOD 08/29/2024 11:06 AM [facility] Alkaline Phosphatase 73 42 - 121 unit/L LAB CHEMISTRY METHOD 08/29/2024 11:06 AM [facility] Total Protein 6.9 6.0 - 8.0 g/dL LAB CHEMISTRY METHOD 08/29/2024 11:06 AM [facility] Albumin 4.3 3.2 - 5.0 g/dL LAB CHEMISTRY METHOD 08/29/2024 11:06 AM [facility] Total Bilirubin 0.4 0.0 - 1.4 mg/dL LAB CHEMISTRY METHOD 08/29/2024 11:06 AM [facility] Blood Venous blood specimen / Unknown Venipuncture / Unknown 08/29/2024 7:48 AM EDT 08/29/2024 10:16 AM EDT [place] [facility] [facility] BLOOD ORDERABLES Final Resu lt [facility] [address] [place] [address], * (ABNORMAL) Lipid panel with reflex to direct LDL (08/09/2024 7:56 AM EST) Cholesterol 234(H) 0 - 200 mg/dL LAB CHEMISTRY METHOD 08/09/2024 9:07 AM [facility] Triglycerides 253(H) 0 - 150 mg/dL LAB CHEMISTRY METHOD 08/09/2024 9:07 AM [facility] HDL 52 >=40 mg/dL LAB CHEMISTRY METHOD 08/09/2024 9:07 AM [facility] LDL Calculated 131(H) 0 - 100 mg/dL LAB CHEMISTRY METHOD 08/09/2024 9:07 AM [facility] VLDL Cholesterol Robert 50.6 mg/dL LAB CHEMISTRY METHOD 08/09/2024 9:07 AM [facility] Non HDL Chol. (LDL+VLDL) 182(H) <145 mg/dL LAB CHEMISTRY METHOD 08/09/2024 9:07 AM [facility] Chol/HDL Ratio 4.5(H) 0.0 - 4.4 LAB CHEMISTRY METHOD 08/09/2024 9:07 AM [facility] Blood Venous blood specimen / Unknown Venipuncture / Unknown 08/09/2024 7:56 AM EST 08/09/2024 8:34 AM EST Rebecca Collazo MD LAB BLOOD ORDERABLES Final Res ult [facility] [address] [place] [address], * Hepatitis C Screening (03/23/2019) Pathologist [facility] Hepatitis C Screening Abstracted Historical Provider HEALTH MAINTENANCE Final Result from Last 3 Months or Most Recently Relevant to Health Maintenance Insurance [facility] MEDICARE Member Subscriber Plan / Payer (Ef fective 2018-Present) Name:KOFFI HERNÁNDEZ Relation to Subscriber:Self Name:Koffi Paez Payer ID:[id number] Group ID:[id number] Type:Not on file Address: [facility] [address] [address] Care Teams X Ray Equipment Servicer Relationship Specialty Start Date End Date Stefani Pressley MD [address] [facility] , [address] [facility] D/B/A: [facility] MANDA Dahl PCP - General Internal Medicine 02/23/25
--- OUTSIDE RECORDS SUMMARY | 2025-05-25 10:14 | XMS_ITS | Data Portability ---
Author Organization [facility], [facility] Address [address] [place] [address] Care Team Providers Care Coordinator Of Health Services Name Role Phone HIM CCA OTHER EUSEBIO BARON Primary Care Provider Assessment Encounter Date Assessment Date Assessment LastModified by Organization Details LastModified Time 07/21/2024 07/21/2024 I provided real -time medical direction via phone for this encounter, and was available for additional phone based assistance as needed. I have reviewed and agree with the Assessment and Plan as documented by the Billing Analyst. We discussed the diagnostic uncertainty of [...] call 911- they verbalized understanding of instruction [email or web address] Not available 07/21/2024 16:11:52 10/13/2024 10/13/2024 I provided real -time medical direction via phone for this encounter and was available for additional phone-based assistance as needed. I have reviewed and agree with the Assessment and Plan as documented by the Billing Analyst. Patient given the opportunity to ask [...] same complaints. Everyone's symptoms are improving Per machine iii coremaker on the scene, VSS, NAD, appears hydrated. Pain to palpation to left side of abd. Neg rebound per machine iii coremaker . BMP was reviewed. Impression and plan: nausea and diarrhea. Differential diagnosis includes viral gastroenteritis given other family members are ill. Review of patient's and family members dietary history is less suggestive of food poisoning. Symptoms are are overall improving. Per machine iii coremaker on the scene there is no concerning subjective or objective findings to warrant an emergent emergency room evaluation. Additionally the patient appears well hydrated to the machine iii coremaker on the scene and is not orthostatic. [...] BMP, serum or plasma 2024 025 BRYAN [facility], [address] [place] [address], [id number] 5 12:36:52 rapid flu (A+B) 2024 025 [email or web address] 0 [facility], [address] [place] [address], [phone] 5 11:17:03 rapid SARS CoV 2 Ag, QL IA, respiratory specimen 2024 025 [email or web address], [phone] 5 11:10:03 Referral None recorded. Procedures None recorded. Surgeries None recorded. Imaging None recorded. Medication Orders azithromyci n 250 mg tablet 2024 025 [email or web address] 0 [facility], [address] [place], [address], 5 11:09:26 benzonatate 100 mg capsule 2024 025 [email or web address] 0 [facility], [address] [place], [address], 5 11:09:26 azithromyci n 250 mg tablet 2024 025 [email or web address] 0 [facility], [address] [place], [address], 5 16:12:47 benzonatate 200 mg capsule 2024 025 BRYAN [facility], [address] [place], [address], 5 11:19:20 Saline Nasal Mist 0.65 % spray aerosol 2024 025 BRYAN [facility], [address] [place], [address], 5 11:19:20 Patient TargetsNo targets recorded. Patient InstructionsNo instructions recorded. Reason for Referral None Reported. Results Created Date Observation Date Name Description Value Unit Range Abnormal Flag Note LastModifiedBy Organization Detail LastModifiedTime 07/21/1907/21/2024 rapid SARS CoV 2 Ag, QL IA, respi rator y speci men rapid SARS CoV 2 Ag, QL IA, respiratory specimen negati ve Not Available [facility] [address] [place] [address], [phone] 07/21/2024 11:09:43 07/21/19 25 07/21/2024 rapid flu (A+B) Flu negati ve Not Available Main - [facility] ed [address] [place] [address], [phone] 07/21/2024 11:09:38 Result Notes None recorded. Medical [...] Not Available No t Available Artificial Tears (hp183-awvma hannah-glyceri n) 1 %-0.2 %-0.2 % eye [...] Not Available Vitals Date Recorded Oxygen saturation Respiratory rate Body temperature Heart rate Systolic And Diastolic Provider Name and Address Organization Details Last Updated DateTime 5 97 % 16 /min 98.4 [degF] 94 /min 136/88 mm[Hg] Not Available [facility] 5 11:06:38 Date Recorded Heart rate Respiratory rate Body temperature Oxygen saturation Systolic And Diastolic Provider Name and Address Organization Details Last Updated DateTime 5 86 /min 18 /min 97.3 [degF] 96 % 142/95 mm[Hg] Not Available [facility] 5 09:43:39 Social History None recorded. Functional Status None recorded. Mental Status None recorded. Family History Nothing Reported. Medical History No medical history recorded. Past Encounters Encounter ID Performer Location Encounter Start Date Encounter Closed Date Diagnosis/Indication Diagnosis SNOMED-CT Code Diagnosis ICD10 Code Diagnosis IMO Codes Diagnosis Note [id number] Kellie Lennon MD [facility] [address] [place] [phone] 07/21/2024 11:06:36 07/22/2024 09:43:11 Upper respiratory infection 75600377 J06.9 possible sinusitis- where patient is immune [...] mother verbalized understand ing to the medic [id number] Pat Hernandez MD [facility] [address] [place] [phone] 10/13/2024 09:43:34 10/13/2024 19:23:30 Nausea and vomiting 42140959 R11.2 [id number] Health Concerns Section Related Observation LastModified by Organization Detai ls LastModified Time None Recorded Concern Status LastModified by Organization Details LastModified Time None Recorded Advance Directives Directive None Recorded Payers Insurance Date Sequence Insurance Name Policy Number Policy Bell Covered Member ID Bell Member ID Guarantor Name 10/13/2024 1 [facility] - DOS ON OR AFTER 2022 - DUAL ELIGIBLE - NURSING HOME OPTIONS AND ONE CARE (MEDICARE REPLACEMENT/ADV ANTAGE - HMO) Koffi Lee ra [id number] Koffi De León Notes Date Note Type [...] is eating, drinking, and voiding without issue. MBR denies CP, SOB, wheezing, or any other symptoms. 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 This call originated from [phone]. ...................... ...................... ...................... ...................... ...................... ...................... ......... [facility] Nurse Triage Notes (Socorro Cronin - RN): Chief Complaints: Common cold symptoms, Cough, Fatigue, Fever/chills, Headache, Weakness PMH: Anxiety Disorder, Chronic Pain, Gastroesophageal Reflux Disease (GERD), Hyperlipidemia, Hypertension, Obesity PMH Reviewed at 07/21/2024: Allergies Reviewed at 07/21/2024 - :08 Comments: HPI reviewed- [place] Billing Analyst Organization Information for [employer] Legal Name: [employer]. Address: [address] [place] [address], Product Safety Coordinator: Joey Blackwell MD CLIA No.: [id number] Billing Analyst POC Test Results from Jm Kurt - ALS Rapid COVID antigen (10:56:54) COVID: - Rapid influenza antigen (10:56:55) Flu: - ...................... ...................... ...................... ...................... ...................... ...................... ......... Billing Analyst Note From Jm Kurt: Dispatched to the call address for the [...] - facial/sinus tenderness, Afebrile, Rapid coivd/flu (-). [facility] consulted. Pt given 200mg Benzonatate and 500mg Azithromycin PO. Scripts called into preferred pharmacy. Red flags discussed. ALL times are approx. [facility] Lab Orders: rapid flu (A+B): Performed rapid SARS CoV 2 Ag, QL IA, respiratory specimen: Performed [facility] Medication Orders: azithromycin 250 mg tablet: Administered benzonatate 100 mg capsule: Administered ...................... ...................... ...................... ...................... ...................... ...................... ......... [facility] Consulted: Kellie Lennon ...................... ...................... ...................... ...................... ...................... ...................... ......... Disposition: Fulfilled Kellie Lennon MD [address] [place] [address],[address], [place], [phone] [employer] 07/21/2024 16:13:27 10/13/2024 text/html CRC Nurse Triage [...] Hypertension, ObesityPMH Reviewed at 10/13/2024:43Allergies Reviewed at 10/13/2024 - 08:43Pain Assessment: Level null out of 10Comments: 29 [...] signs of when to seek emergency care. Billing Analyst Organization Information for Enrique Crow VISENZE JOHNSON [employer] Legal Name: [facility] Transportation Address: [address] [place] [address], [place] [address], Product Safety Coordinator: Jhon Motley MD CLIA No.: [id number] Billing Analyst POC Test Results from Enrique Crow [facility] (09:55:12) pH: 7.362 pH units pCO2: 50.2 mmHg pO2: 29.7 mmHg Na: 146 mmol/L K: 3.9 mmol/L iCa: 1.20 mmol/L Cl: 107 mmol/L TCO2: 27.8 mEq/L Hct: 46 % Hb: 15.6 g/dL Glu: 80 mg/dL Lac: 1.21 mmol/L Cr: 0.93 mg/dL BUN: 12.6 mg/dL A mmol/L HCO3: 28.5 mmol/L ...................... ...................... ...................... ...................... ...................... ...................... ......... Billing Analyst Note From Buddy Crown: Arrived to find patient ambulating in the residence. Patient aox4 GCS 15 skin pink warm and dry n patient has been endorsing vomiting abdominal pain and diarrhea since Wednesday. Patient a stated that he has been having diarrhea approximately 7 days. Patient able to tolerate PO intake. VS as noted. Afebrile. [facility] contacted and advised blood work. Patient blood work obtained as noted. Patient abdomen tender to left side. [facility] and provider advised if he has increased pain to go to hospital for evaluation for diverticulitis. Patient in agreement [facility] Lab Orders: BMP, serum or plasma: Performed ...................... ...................... ...................... ...................... ...................... ...................... ......... [facility] Consulted: Pat Hernandez ...................... ...................... ...................... ...................... ...................... ...................... ......... Disposition: Andrea Hernandez MD [address] [facility],[address], [place], [address], JONH NUNEZ 10/13/2024 12:35:13
--- OUTSIDE RECORDS SUMMARY | 2025-05-25 10:15 | XMS_ITS | Clinical Summary ---
Author Organization [facility] Address [address] [facility] [address] [place] [address] Phone Care Team Providers Care Business Services Director Name Role Phone Rebecca Collazo MD Primary Care Provider [phone] Allergies Active Allergy Reactions Criticality Noted Date [...] (06/16/2021): History of pauciarticular CAROLINE, DX in [place], Enbrel for 6 years,D/C'ed for development of [...] this topic Insurance MCR ([id number]) DILMA BOSE [id number] MCR ([id number]) DILMA BOSE [id number] Care Teams Business Services Director Relationship Specialty Start Date End Date Rebecca Collazo MD [address] [address] PCP - General 06/17/20
== END 2025-05-25 10:02 | disposition home or self-care (01) ==
LOC: HO.ENCR 09:31
PROVIDERS: PCP Internal Medicine; Visit Provider Student in an Organized Health Care Education/Training Program
DX: E03.2 Hypothyroidism due to medicaments and other exogenous substances (principal)
CPT/HCPCS: 99213; G2211

== ENCOUNTER → 2025-05-25 09:30 | Outpatient (BNVA) | payer OTHER, SELFPAY | PROVIDERS: PCP Internal Medicine; Visit Provider Student in an Organized Health Care Education/Training Program | DX: E03.2 Hypothyroidism due to medicaments and other exogenous substances (principal); Z79.899 Other long term (current) drug therapy | CPT/HCPCS: 99212 ==